=== PATIENT | male | born 1965 | race Caucasian/White ===

== ENCOUNTER 2022-10-15 06:53 | Outpatient (OUT) | payer BC, SELFPAY ==
--- NOTE | 2022-10-15 07:54 | US_ITS ---
[place] [id number] Patient Name: KARL GEIGER MRN: [id number] date: 1965 Sex: M Assigned Patient Location: CARD Current Patient Location: CARD Accession/Order Number: [id number] Exam Date: 10/15/2022 08:00 Report Date: 10/15/2022 16:39 At the request of: ANTIONE STOVER Procedure: US carotid duplex BI EXAMINATION: US carotid duplex BI HISTORY: PTOSIS OF RIGHT EYELID H02.401 COMPARISON: No relevant comparison available. TECHNIQUE: Duplex Doppler ultrasound analysis of carotid and vertebral arteries. . Bilateral carotid arterial duplex examination was performed using B-mode, color flow and spectral analysis. Carotid stenosis is reported according to validated velocity parameters, similar to NASCET criteria. FINDINGS: RIGHT CAROTID ARTERY Mild atherosclerotic plaque Subclavian: PSV: 138.3 cm/s cm/s EDV: 0.0 cm/s cm/s CCA: Prox: PSV: 76.8 cm/s cm/s EDV: 23.3 cm/s cm/s Mid: PSV: 99.0 cm/s cm/s EDV: 24.6 cm/s cm/s Distal: PSV: 79.0 cm/s cm/s EDV: 24.3 cm/s cm/s BULB: PSV: 59.1 cm/s cm/s EDV: 18.7 cm/s cm/s ICA: Prox: PSV: 47.9 cm/s cm/s EDV: 14.9 cm/s cm/s Mid: PSV: 55.6 cm/s cm/s EDV: 22.6 cm/s cm/s Distal: PSV: 56.7 cm/s cm/s EDV: 22.6 cm/s cm/s ECA: PSV: 97.4 cm/s cm/s EDV: 20.4 cm/s cm/s VERTEBRAL: PSV: 19.9 cm/s cm/s EDV: 7.8 cm/s cm/s, antegrade ICA/CCA ratio: PSV: 0.6 EDV: 0.8 LEFT CAROTID ARTERY Mild atherosclerotic plaque Subclavian: PSV: 135.8 cm/s cm/s EDV: 0.0 cm/s CCA: Prox: PSV: 116.1 cm/s cm/s EDV: 25.4 cm/s Mid: PSV: 98.4 cm/s cm/s EDV: 25.4 cm/s Distal: PSV: 76.7 cm/s cm/s EDV: 23.5 cm/s BULB: PSV: 37.4 cm/s cm/s EDV: 8.9 cm/s ICA: Prox: PSV: 79.0 cm/s cm/s EDV: 20.8 cm/s Mid: PSV: 72.5 cm/s cm/s EDV: 20.8 cm/s Distal: PSV: 70.9 cm/s cm/s EDV: 22.4 cm/s ECA: PSV: 78.9 cm/s cm/s EDV: 12.8 cm/s VERTEBRAL: PSV: 37.4 cm/s cm/s EDV: 13.0 cm/s , antegrade ICA/CCA ratio: PSV: 0.7 EDV: 0.8 Enlarged heterogeneous thyroid gland IMPRESSION: 0-49% flow stenosis bilateral internal carotid arteries Enlarged heterogeneous thyroid gland. Consider thyroid ultrasound follow up Spectral Doppler US Thresholds (Reference: Marcin EG, et al. Radiology 2000; 214:247-252) Stenosis (%) PSV (cm/sec) VICA/VCCA 0-49 <150 <2.5 50-69 150-225 2.5-4.0 >70 >225 >4.0 Electronically authenticated by: BERNARDO DANGELO Date: 10/15/2022 16:39
--- NOTE | 2022-10-15 07:55 | US_ITS ---
[place] [id number] Patient Name: KARL GEIGER MRN: [id number] date: 1965 Sex: M Assigned Patient Location: CARD Current Patient Location: CARD Accession/Order Number: [id number] Exam Date: 10/15/2022 08:00 Report Date: 10/15/2022 10:09 At the request of: ANTIONE STOVER Procedure: US venous doppler UE RT EXAMINATION: US venous doppler UE RT HISTORY: SUPERFICIAL VENOUS THROMBOSIS OF RT UPPER EXTREMITY I82.611 COMPARISON: No relevant comparison available. TECHNIQUE: Grayscale, color and Doppler FINDINGS: Region: Right arm Thrombus: None Flow: Normal Augmentation: Normal Compressibility: Normal IMPRESSION: No deep or superficial vein thrombus identified in the right arm *Exam performed in accordance with [facility] practice guidelines- Peripheral venous ultrasound, July 13, 2009. Electronically authenticated by: BERNARDO DANGELO Date: 10/15/2022 10:09
--- NOTE | 2022-10-15 08:08 | CA_ITS ---
Patient: KARL GEIGER Exam Date: 10/15/2022 : 1965 Gender:M Ordering : DR Zach Mims D.O. Admission #: [id number] Family : Order #: [id number] CLICK HERE TO VIEW EXAM ECHOCARDIOGRAM REPORT PROCEDURE: CA ECHO DOPPLER COMPLETE INDICATIONS: Ptosis of right eyelid, Right oculomotor nerve palsy COMPARISON: None. DESCRIPTION: COMPLETE ECHOCARDIOGRAM Real-time transthoracic echocardiography with 2D, M-mode, spectral and color flow Doppler performed. QUALITY: Technical quality was good. LEFT VENTRICLE: Normal chamber size. Borderline left ventricular hypertrophy. Global left ventricular systolic function is normal. LV EF: Estimated left ventricular ejection fraction is 65% DIASTOLIC: Normal diastolic function. ATRIAL SEPTUM: LEFT ATRIUM: Mild dilatation. RIGHT ATRIUM: Mild dilatation. RIGHT VENTRICLE: Normal chamber size. Normal right ventricular systolic function. TRICUSPID VALVE: Normal mobility and thickness. No stenosis with trivial regurgitation. No evidence of pulmonary hypertension. RVSP 29 mmHg MITRAL VALVE: Normal mobility and thickness. No evidence of mitral valve stenosis. There is no mitral annular calcification. Trivial mitral regurgitation. AORTIC VALVE: Normal trileaflet appearance. No visible sclerosis. Normal leaflet mobility. No evidence of aortic valve stenosis. Mild aortic regurgitation. AORTIC ROOT: Normal diameter and appearance. PULMONIC VALVE: Normal thickness and mobility. No stenosis. Trivial regurgitation. PERICARDIUM: No evidence of pericardial effusion. IVC: Collapses with inspirations. Normal size PLEURA: CONCLUSION: 1. Normal ventricular systolic function. LVEF is 65%. 2. Normal diastolic function. 3. Mild biatrial dilatation. 4. Mild aortic valve regurgitation. 5. Normal right-sided pressures. 6. No pericardial effusion. Adult Echocardiography Procedure Report Left Ventricle LVEDD (3.7 - 5.6 cm): 5.29 cm LVESD (2.2 - 4.0 cm): 3.35 cm LVIVS thickness (0.6 - 1.2 cm): 1.03 cm LVPW thickness (0.5 - 1.0 cm): 1.09 cm e': 0.07 m/s E - e': 11.90 LVOT Max Gradient: 2.78 mm[Hg] LVOT Area (cm2): 0.83 m/s Peak Velocity (LVOT): 0.83 m/s Mean Velocity (LVOT): 0.61 m/s LVOT Diameter 2.25 cm Left Ventricular Ejection Fraction: 67.61 % Left Atrium LA Volume Index (2D A2C): 58.18 ml/m2 Left Atrium Systolic Dimension: 3.50 cm Mitral Valve MV E to A Ratio: 1.12 Mitral Valve A-Wave Peak Velocity: 0.78 m/s Mitral Valve E-Wave Peak Velocity: 0.88 m/s Right Ventricle RV Internal Diastolic Dimension: 4.20 cm Aorta AO Root Diam: 3.45 cm Ascending Ao Diam: 3.51 cm Aortic Valve AoV Area (Peak Bob): 3.02 cm2, 3.02 cm2 AoV Area (VTI): 3.20 cm2, 3.20 cm2 Peak Velocity(Antegrade Flow): 1.09 m/s Peak Gradient(Antegrade Flow): 4.76 mm[Hg] Mean Velocity(Antegrade Flow): 0.82 m/s Mean Gradient(Antegrade Flow): 2.96 mm[Hg] Velocity Time Integral: 24.08 cm Tricuspid Valve Peak Velocity (Regurgitant Flow): 2.51 m/s, 2.55 m/s, 1.83 m/s Pulmonic Valve Mean Gradient: 2.38 mm[Hg] Mean Velocity: 0.72 m/s Peak Velocity: 1.05 m/s, 1.00 m/s Peak Gradient: 4.40 mm[Hg], 4.04 mm[Hg] Right Atrium Right Atrium Systolic Pressure: 80.74 ml, 80.74 ml Dictated by: Jewel Gerardo M.D. on 10/15/2022 at 18:05 Approved by: Jewel Gerardo M.D. on 10/15/2022 at 18:08
--- NOTE | 2022-10-15 09:35 | MR_ITS ---
[address] [address] Patient Name: KARL GEIGER MRN: [id number] date: 1965 Sex: M Assigned Patient Location: CARD Current Patient Location: Accession/Order Number: [id number] Exam Date: 10/15/2022 09:35 Report Date: 10/16/2022 08:49 At the request of: ANTIONE STOVER Procedure: MR head/brain wo/w con EXAM: MR head/brain wo/w con HISTORY: PTOSIS OF RIGHT EYELID H02.401 COMPARISON: None. TECHNIQUE: Axial sagittal T1, axial T2, axial FLAIR, axial GRE, axial DWI, axial, sagittal, coronal T1 rosales FINDINGS: There is no diffusion abnormality.. The brain demonstrates normal morphology and signal. There is no mass, mass effect, nor hydrocephalus. The vascular flow voids are patent. The internal auditory canals and mastoid air cells appear unremarkable. There are no areas of hemosiderin staining. Postcontrast, there is no abnormal enhancement. The dural sinuses are patent. The orbits appear symmetric. The interpeduncular region appears unremarkable. The sella appears normal. Disc bulges in the upper cervical spine. Mild ethmoid sinus mucosal disease IMPRESSION: No MRI evidence for acute ischemia. Unremarkable MR appearance of the brain. No abnormal enhancement. Mild ethmoid sinus mucosal disease Electronically authenticated by: ANDREW VICK Date: 10/16/2022 08:49
== END 2022-10-15 06:54 | disposition home or self-care (01) ==
LOC: CARD 06:54
PROVIDERS: PCP Internal Medicine; Visit Provider Internal Medicine
DX: I82.611 Acute embolism and thrombosis of superficial veins of right upper extremity (principal); H02.401 Unspecified ptosis of right eyelid; H49.01 Third [oculomotor] nerve palsy, right eye; J32.2 Chronic ethmoidal sinusitis; I65.23 Occlusion and stenosis of bilateral carotid arteries; I35.1 Nonrheumatic aortic (valve) insufficiency
CPT/HCPCS: 70553; 93306; 93880; 93971; A9575

== ENCOUNTER 2022-10-29 13:53 | Outpatient (OUT) | payer BC, SELFPAY ==
--- NOTE | 2022-10-29 13:56 | US_ITS ---
The [address] [address] Patient Name: KARL GEIGER MRN: [id number] date: 1965 Sex: M Assigned Patient Location: US Current Patient Location: US Accession/Order Number: [id number] Exam Date: 10/29/2022 14:00 Report Date: 10/29/2022 19:39 At the request of: ANTIONE STOVER Procedure: US thyroid EXAM: US thyroid HISTORY: Enlarged Thyroid E04.9 COMPARISON: None. TECHNIQUE: Multiple sonographic images of the thyroid gland were obtained, supplemented with Doppler. FINDINGS: The right lobe measures 8.3 x 5.0 x 5.9 cm. Heterogeneous echoes are noted throughout. In the mid aspect there is a prominent nodule measuring 5.9 x 5.8 x 4.7 cm. This is solid and isoechoic. The left lobe measures 8.1 x 3.4 x 4.4 cm. Heterogeneous echoes are noted throughout. In the mid aspect there is a solid isoechoic nodule measuring 3.5 x 3.5 x 3.1 cm. In the superior aspect there is a solid isoechoic nodule measuring 1.6 x 2.0 x 2.0 cm. The isthmus measures 5 mm in thickness. There is no evidence of a focal mass or abnormal fluid collection surrounding the gland. US/US thyroid IMPRESSION: The thyroid gland is significantly enlarged diffusely. There are 3 largest nodules are described above, and each of these appears to be a TI RADS 3. Based on the size, the largest nodule on the right and the larger nodule on the left should be biopsied. Excisional biopsy of the very large nodule on the right may be prudent. Comparison with a previous study may be helpful. A follow-up study in 12 months is also recommended. Electronically authenticated by: ANA BARRIOS Date: 10/29/2022 19:39
== END 2022-10-29 13:54 | disposition home or self-care (01) ==
LOC: US 13:53
PROVIDERS: PCP Internal Medicine; Visit Provider Internal Medicine
DX: E04.9 Nontoxic goiter, unspecified (principal)
CPT/HCPCS: 76536

== ENCOUNTER 2022-11-02 16:23 | Outpatient (OUT) | payer BC, SELFPAY ==
[2022-11-02 18:09] LABS: Free T4 0.94 ng/dL (0.76-1.46)
[2022-11-04 05:07] LABS: Triiodothyronine (T3) 136 ng/dL (71-180)
== END 2022-11-02 16:24 | disposition home or self-care (01) ==
LOC: LAB 16:24
PROVIDERS: PCP Internal Medicine; Visit Provider Internal Medicine
DX: E04.1 Nontoxic single thyroid nodule (principal)
CPT/HCPCS: 36415; 84439; 84443; 84480

== ENCOUNTER 2023-03-29 11:40 | Outpatient (OUT) | payer BC, SELFPAY ==
[2023-03-29 12:17] LABS: Estimated Average Glucose 126 mg/dL
[2023-03-29 13:03] LABS: Microalbumin Urine Random <1.3 mg/dL (<=30.0)
== END 2023-03-29 11:41 | disposition home or self-care (01) ==
LOC: LAB 11:43
PROVIDERS: PCP Internal Medicine; Visit Provider Internal Medicine
DX: Z00.00 Encounter for general adult medical examination without abnormal findings (principal)
CPT/HCPCS: 36415; 82043; 83036

== ENCOUNTER 2023-07-14 16:37 | Outpatient (OUT) | payer BC, OTHER, SELFPAY ==
--- NOTE | 2023-07-14 16:49 | XR_ITS ---
The [place] [id number] Patient Name: KARL GEIGER MRN: [id number] date: 1965 Sex: M Assigned Patient Location: LAB Current Patient Location: Accession/Order Number: [id number] Exam Date: 07/14/2023 16:54 Report Date: 07/15/2023 07:30 At the request of: ANTIONE STOVER Procedure: XR lumbar spine 2-3V EXAMINATION: XR lumbar spine 2-3V HISTORY: hip pain, back pain M25.559, M54.9 COMPARISON: No relevant comparison available. FINDINGS: BONES: Normal alignment of the lumbar vertebral bodies with no acute fracture or spondylolisthesis. Bulky enthesopathic spurring. Moderate to severe facet osteoarthropathy DISC SPACES: Disc collapse L5-S1 PARASPINOUS: Negative. No paraspinous abnormality is seen. OTHER: Negative. XR/XR lumbar spine 2-3V IMPRESSION: Moderate to severe diffuse degenerative changes most significant at L5-S1 Electronically authenticated by: BERNARDO DANGELO Date: 07/15/2023 07:30
--- OUTSIDE RECORDS SUMMARY | 2023-07-14 16:51 | XMS_ITS | CCD ---
Author Organization [facility] Care Team Providers Care Teacher Asst Name Role Phone ZACH STOVER Primary Care Physician Ck, Zach Unavailable CK, DR SERRANO Consulting Unavailable CK, DR SERRANO Primary Care Unavailable BALL, DR SERRANO Attending Unavailable BALL, DR SERRANO Admitting Unavailable ANTOLIN, DR BERNARDO Brown Consulting Unavailable BALL, DR SERRANO Attending Unavailable BALL, DR SERRANO Consulting Unavailable CK, DR SERRANO Admitting Unavailable CK, DR SERRANO Primary Care Unavailable JAMEY FRAUSTO Consulting Unavaila ble CK, DR SERRANO Attending Unavailable BALL, DR SERRANO Consulting Unavailable BALL, DR SERRANO Admitting Unavailable BALL, DR SERRANO Primary Care Unavailable ZIJERMAINE, DR DAMASO Hooker Consulting Unavailable BALL, DR SERRANO Attending Unavailable BALL, DR SERRANO Consulting Unavailable BALL, DR SERRANO Admitting Unavailable BALL, DR SERRANO Primary Care Unavailable BALL, DR SERRANO Consulting Unavailable BALL, DR SERRANO Attending Unavailable BALL, DR SERRANO Admitting Unavailable BALL, DR SERRANO Primary Care Unavailable MAYRA STEIN Consulting Unavailable CK, DR SERRANO Primary Care Unavailable YURIDIA ., DR VELMA Kang Admitting Unavailable SHI ., DR VELMA Kang Consulting Unavailable SHI ., DR VELMA Kang Attending Unavailable HAY ., DR SHEEHAN Consulting Unavailable FAUSTO, LENKA Consulting Unavailable RASHEEDA, PAKO Consulting Unavailable BALL, DR SERRANO Primary Care Unavailable BALL, DR SERRANO Attending Unavailable BALL, DR SERRANO Admitting Unavailable BALL, DR SERRANO Primary Care Unavailable YURIDIA ., DR VELMA Kang Admitting Unavailable SHI ., DR VELMA Kang Consulting Unavailable SHI ., DR VELMA Kang Attending Unavailable Ck, DO Serrano Primary Care Provider DO Zach Martínez Attending Provider [phone] DO Zach Stover Primary Care Provider DO Zach Martínez Attending Provider Ball DO, Zach Primary Care Provider MERYL HOWE Referring Unavailable BALL, ZACH Primary Care Unavailable BALL, ZACH Primary Care Unavailable SKIBICAIN ESQUIVEL Attending Unavailable Ball, DO Zach Primary Care Provider Murcek, DO Zach Attending Provider [phone] Ball, DO Zach Attending Provider [phone] Murcek, DO Zach Other Provider Ball DO, Zach E Primary Care Provider BALL, ZACH E Primary Care Unavailable ABHYANKAR, RENE Attending Unavailable BALL, ZACH E Primary Care Unavailable ABHYANKAR, RENE Attending Unavailable BALL, ZACH E Referring Unavailable ABHYANKAR, RENE Referring Unavailable BALL, ZACH E Primary Care Unavailable DESHPANDE, LINA Attending Unavailable DESHPANDE, LINA Admitting Unavailable BALL, ZACH E Primary Care Unavailable MURCEK, ZACH W Attending Unavailable MURCEK, ZACH W Attending Unavailable Ball, DO Zach Primary Care Provider [phone] Ball, DO Zach Attending Provider [phone] Murcek, DO Zach Other Provider [phone] Murcek, DO Zach Attending Provider MD oBnifacio Mitchell Attending Provider MD Bonifacio Mitchell Admit Provider MD Bonifacio Mitchell Attending Provider Ball, Zach Primary Care Unavailable Murcek, Zach Admitting Unavailable Murcek, Zach Attending Unavailable Ball, Zach Primary Care Unavailable Bonifacio Mitchell Admitting Unavailable Bonifacio Mitchell Attending Unavailable Murcek, Zach Admitting Unavailable Ball, Zach Primary Care Unavailable Murcek, Zach Attending Unavailable Ball, Zach Primary Care Unavailable Murcek, Zach Admitting Unavailable Murcek, Zach Attending Unavailable Murcek, Zach Admitting Unavailable Ball, Zach Primary Care Unavailable Murcek, Zach Attending Unavailable Murcek, Zach Admitting Unavailable Ball, Zach Primary Care Unavailable Murcek, Zach Attending Unavailable Ball, Zach Primary Care Unavailable Ball, Zach Attending Unavailable Ball, Zach Admitting Unavailable Murcek, Zach Consulting Unavailable Bonifacio MITCHELL Attending Unavailable Bonifacio MITCHELL Attending Unavailable Bonifacio MITCHELL Admitting Unavailable Bonifacio MITCHELL Attending Unavailable Bonifacio MITCHELL Attending Unavailable Bonifacio MITCHELL Attending Unavailable Bonifacio MITCHELL Referring Unavailable Bonifacio MITCHELL Attending Unavailable Allergies Allergy Classification Reported Allergen(s) Allergy Type Date of Onset Reaction(s) Facility (1 source) patient allergy list reviewed by nurse or physicia Propensity to adverse reactions Comment:Done [employer] Other Medications Current Medications Medication Drug Class(es) Dates Sig (Normalized) Sig (Original) 24 hr alfuzosin hydrochloride 10 mg extended release oral tablet (20 sources) alpha-Adrenergic Danny Start: 03-29-2023 alfuzosin SR (UROXATRAL) 10 mg 24 hr tablet Start: 07-27-2022 take 10 mg by mouth once daily Alfuzosin Active 10 MG PO Daily December 10, 2022 12:00am amLODIPine 5 mg oral tablet (20 sources) Dihydropyridine Calcium Channel Danny Start: 10-08-2022 take 5 mg by mouth once daily in the morning Amlodipine Active 5 MG PO Every morning December 10, 2022 12:00am apixaban 5 mg oral tablet (18 sources) Factor Xa Inhibitor Start: 07-08-2022 take 1 tablet by mouth every twelve hours Eliquis 5 MG 1 tablet Orally Twice a day Jun, Active atenolol 100 mg oral tablet (16 sources) beta-Adrenergic Danny Start: 06-06-2019 take 1 tablet by mouth once daily atenolol 100 mg Tab 100 mg = 1 tab(s), Oral, Daily Start Date: 06/06/19 Status: Ordered 24 hr buPROPion hydrochloride 300 mg extended release oral tablet (20 sources) Aminoketone Start: 07-08-2023 buPROPion 300 mg/24 hours ER Tab 300 mg = 1 tab(s), Oral Start Date: 07/08/23 Status: Ordered Start: 02-22-2023 buPROPion XL ( WELLBUTRIN XL) 300 mg 24 hr tablet Start: 12-10-2022 take 300 mg by mouth once frandy y Bupropion Hcl Active 300 MG PO Daily December 10, 2022 12:00am carvedilol 6.25 mg oral tablet (20 sources) alpha-Adrenergic Danny, beta-Adrenergic Danny Start: 10-08-2022 take 6.25 mg by mouth twice daily Carvedilol Active 6.25 MG PO Twice daily December 10, 2022 12:00am celecoxib 200 mg oral capsule (20 sources) Nonsteroidal Anti-inflammatory Drug Start: 06-06-2019 take 200 mg by mouth once daily in the morning Celecoxib Active 200 MG PO Every morning December 10, 2022 12:00am ciprofloxacin 500 mg oral tablet (6 sources) Quinolone Antimicrobial Start: 06-22-2023 take 500 mg by mouth twice daily Ciprofloxacin Hcl Active 500 MG PO Twice daily July 09, 2023 12:00am Start: 06-18-2022 Cipro 500 mg T ab See Instructions, Take 1 tab the day prior to procedure and 1 tab day of procedure afterwards, # 2 tab(s), Refills(s) 0, Pharmacy: [facility] [id number], 181, cm, 07/29/21 7:44:00 EDT, Height/Length Dosing, 85, kg, 07/29/21 7:44:00 EDT, Weight Dosing Start Date: 06/18/22 Status: Ordered Start: 06-26-2021 Cipro 500 mg T ab See Instructions, Take 1 tab day prior to procedure and 1 tab day of procdure - afterwards, # 2 tab(s), Refills(s) 0, Pharmacy: [facility] [id number], 181, cm, 06/27/20 12:55:00 EST, Height/Length Dosing, 131.5, kg, 11/28/19 13:22:00 EDT, Weight Dosing Start Date: 06/26/21 Status: Ordered cyclobenzaprine hydrochloride 10 mg oral tablet (20 sources) Muscle Relaxant Start: 11-22-2019 take 10 mg by mouth once daily Cyclobenzaprine Active 10 MG PO Daily December 10, 2022 12:00am hydroCHLOROthiazide 25 mg oral tablet (20 sources) Thiazide Diuretic Start: 07-08-2023 take 25 mg by mouth once daily Hydrochlorothiazide Active 25 MG PO Daily July 09, 2023 12:00am Start: 12-16-2022 take 1 tablet by arvin th every twenty-four hours hydroCHLOROthiazide 25 MG 1 tablet in the morning Orally Once a day for 90 days Nov, Active Comment on above: Take 25 mg by mouth once daily. hydroCHLOROthiazide / olmesartan (2 sources) Thiazide Diuretic, Angiotensin 2 Receptor Danny Start: 11-22-19 take 1 tablet by mouth once daily hydrochlorothia zide-olmesartan 25 mg-40 mg oral tablet 1 tab(s), Oral, Daily, Refill(s) 0 Start Date: 11/22/19 Status: Ordered Start: 11-22-2019 take 1 tablet by arvin th once daily hydrochlorothiazide-olmesartan 25 mg-40 mg oral tablet 1 tab(s), Oral, Daily, Refill(s) 0 Start Date: 11/22/19 Status: Ordered hydroCHLOROthiazide 25 mg / valsartan 320 mg oral tablet (2 sources) Thiazide Diuretic, Angiotensin 2 Receptor Danny take 1 tablet by mouth once daily valsartan-hydrochlorothiazide (DIOVAN-HCT) 320-25 MG per tablet Take 1 tablet by mouth daily 0 Active ibuprofen 600 mg oral tablet (2 sources) Nonsteroidal Anti-inflammator y Drug take 1 tablet by mouth every six hours as needed for pain ibuprofen (ADVIL;MOTRIN) 600 MG tablet Take 600 mg by mouth every 6 hours as needed for Pain 0 Active levothyroxine sodium 0.2 mg oral tablet (19 sources) l-Thyroxine Star t: 06-18 take 225 ug by mouth once daily Levothyroxine Active 225 MCG PO Daily July 09, 2023 12:00am Start: 07-08-2023 take 1 tablet by arvin th once daily levothyroxine 25 mcg (0.025 mg) Tab 25 mcg = 1 tab(s), Oral, Daily Start Date: 07/08/23 Status: Ordered Start: 04-25-2023 levothyroxine (SYNTHROID) 175 mcg tablet take 1 tablet by arvin th once daily in the morning Levothyroxine Sodium 150 MCG 1 tablet in the morning on an empty stomach Orally Once a day Active take 1 tablet by arvin th once daily in the morning Levothyroxine Sodium 100 MCG 1 tablet in the morning on an empty stomach Orally Once a day Active losartan potassium 100 mg oral tablet (19 sources) Angiotensin 2 Receptor Danny Start: 06-29-2023 End: 06-29-2023 take 100 mg by mouth once daily Losartan Active 100 MG PO Daily 90 90 June 29, 2023 1:14pm Start: 03-29-2023 losartan (COZA AR) 100 mg tablet metroNIDAZOLE 500 mg oral tablet (20 sources) Nitroimidazole Antimicrobial Start: 06-16-2022 take 1 tablet by mouth every eight hours metroNIDAZOLE 500 MG 1 tablet Orally Three times a day for 7 days May, Active oxybutynin chloride 5 mg oral tablet (2 sources) Cholinergic Muscarinic Antagonist Start: 07-09-2023 take 5 mg by mouth twice daily Oxybutynin Chloride Active 5 MG PO Twice daily 05 02July 09, 2023 12:00am pravastatin sodium 40 mg oral tablet (20 sources) HMG-CoA Reductase Inhibitor Start: 11-28-2019 take 40 mg by mouth once daily in the evening Pravastatin Active 40 MG PO Every evening December 10, 2022 12:00am tamsulosin hydrochloride 0.4 mg oral capsule (1 source) alpha-Adrenergic Danny Start: 06-22-2022 Flomax 0.4 mg Cap 0.4 mg = 1 cap(s), Oral, Daily, 30 minutes after the same meal, # 30 tab(s), Refills(s) 11, Pharmacy: [facility] [id number], 181, cm, 07/29/21 7:44:00 EDT, Height/Length Dosing, 85, kg, 07/29/21 7:44:00 EDT, Weight Dosing Start Date: 06/22/22 Status: Ordered Completed/Discontinued Medications Medication Drug Class(es) Dates Sig (Normalized) Sig (Original) acetaminophen 325 mg oral tablet (1 source) Start: 04-28-2023 End: 04-28-2023 acetaminophen (TYLENOL) tablet 650 mg ALPRAZolam 0.25 mg oral tablet (20 sources) Benzodiazepine Start: 03-29-2023 ALPRAZolam (XANAX) 0.25 mg tablet Start: 11-22-2019 take 0.25 mg by mout h every six hours Alprazolam Active 0.25 MG PO Q6H December 10, 2022 12:00am amoxicillin 875 mg / clavulanate 125 mg oral tablet (20 sources) Penicillin-class Antibacterial Start: 06-05-2022 take 1 tablet by mouth every twelve hours Amoxicillin-Pot Clavulanate 875-125 MG 1 tablet Orally every 12 hrs for 7 17 May, 2022 Not-Taking/PRN cephalexin 500 mg oral capsule (2 sources) Cephalosporin Antibacterial Start: 07-09-2023 End: 07-10-2023 take 500 mg by mouth twice daily Cephalexin Discontinued 500 MG PO Twice daily 10 5 July 09, 2023 12:00am July 10, 2023 1:49am doxycycline hyclate 100 mg oral capsule (2 sources) Tetracycline-class Drug Start: 06-10-2023 End: 07-09-2023 take 100 mg by mouth twice daily Doxycycline Hyclate Discontinued 100 MG PO Twice daily 14 June 10, 2023 1:00am July 09, 2023 3:49pm levoFLOXacin 500 mg oral tablet (20 sources) Quinolone Antimicrobial Start: 06-16-2022 take 1 tablet by mouth every twenty-four hours levoFLOXacin 500 MG 1 tablet Orally Once a day for 7 days May, Not-Taking/PRN olmesartan medoxomil 20 mg oral tablet (12 sources) Angiotensin 2 Receptor Danny Start: 12-11-2022 End: 07-09-2023 take 20 mg by mouth once daily Olmesartan Discontinued 20 MG PO Daily December 18, 2022 12:00am July 09, 2023 3:49pm sildenafil 100 mg oral tablet (20 sources) Phosphodiesterase 5 Inhibitor Start: 12-10-2022 End: 07-09-2023 take 100 mg by mouth once daily Sildenafil Discontinued 100 MG PO Daily December 10, 2022 12:00am July 09, 2023 3:49pm Start: 02-05-2021 sildenafil 50 mg Tab See Instructions, 1 hour before sexual activity, # 30 caplet(s), Refills(s) 3, [facility]: [facility], 181, cm, 06/27/20 12:55:00 EST, Height/Length Dosing, 131.5, kg, 11/28/19 13:22:00 EDT, Weight Dosing Start Date: 02/05/21 Status: Ordered zolpidem tartrate 10 mg oral tablet (20 sources) gamma-Aminobutyric Acid-ergic Agonist Start: 06-06-2019 End: 06-21-2023 take 10 mg by mouth once daily at bedtime Zolpidem Discontinued 10 MG PO Daily at bedtime June 21, 2023 1:00am June 21, 2023 2:02pm Problems Active Problems Problem Classification Problem Date Documented Da te Episodic/Chronic Abdominal hernia (20 sources) Umbilical hernia; Translations: [Umbilical hernia without obstruction or gangrene] Resolved: 0 Episodic Acute bronchitis (2 sources) Acute bronchitis; Translations: [Acute bronchitis due to other specified organisms] Onset: 4 Episodic Anxiety disorders (20 sources) Generalized anxiety disorder; Translations: [Generalized anxiety disorder] Onset: 7 Resolved: 0 11-22-2019 Chronic Cancer of bladder (1 source) Malignant tumor of urinary bladder; Translations: [Malignant neoplasm of bladder, unspecified] Onset: 6 Chronic Cancer of bladder (3 sources) History of malignant neoplasm of bladder; Translations: [Personal history of malignant neoplasm of bladder] Onset: 2 Episodic Cancer; other and unspecified primary (4 sources) H/O: malignant neoplasm 05-16-2019 Episodic Chronic kidney disease (20 sources) Chronic kidney disease stage 3A ; Translations: [Stage 3a chronic kidney disease] Chronic Complications of surgical procedures or medical care (11 sources) Postoperative hypothyroidism; Translations: [Postprocedural hypothyroidism] Onset: 4 Chronic Diabetes mellitus without complication (20 sources) Impaired fasting glycemia; Translations: [Impaired fasting glucose] Onset: 7 11-22-2019 Episodic Disorders of lipid metabolism (20 sources) Hyperlipidemia; Translations: [Hypercholesterolemia] Onset: 7 11-22-2019 Chronic Diverticulosis and diverticulitis (20 sources) Diverticular disease; Translations: [Diverticular disease of colon] Onset: 4 05-16-2019 Chronic Essential hypertension (20 sources) Hypertensive disorder; Translations: [Essential hypertension] Onset: 4 05-16-2019 Chronic Hyperplasia of prostate (20 sources) Benign prostatic hypertrophy with outflow obstruction; Translations: [Benign prostatic hyperplasia with lower urinary tract symptoms] Onset: 9 Resolved: 0 Chronic Hypertension with complications and secondary hypertension (20 sources) Chronic kidney disease due to hypertension; Translations: [Hypertensive chronic kidney disease with stage 1 through stage 4 chronic kidney disease, or unspecified chronic kidney disease] Onset: 1 Chronic Inflammatory conditions of male genital organs (5 sources) Epididymitis; Translations: [Acute prostatitis] Onset: 8 05-16-2019 Episodic Malignant neoplasm without specification of site (2 sources) Malignant (primary) neoplasm, unspecified; Translations: [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)] Onset: 4 Chronic Miscellaneous mental health disorders (20 sources) Primary insomnia; Translations: [Primary insomnia] 07-09-2023 Chronic Mood disorders (20 sources) Depressive disorder; Translations: [Mild recurrent major depression] 05-16-2019 Chronic Osteoarthritis (20 sources) Localized, primary osteoarthritis of the pelvic region and thigh; Translations: [Unilateral primary osteoarthritis, right hip] Resolved: 2 Chronic Other aftercare (20 sources) H/O: high risk medication; Translations: [Other terminal block assembler (current) drug therapy] Episodic Other aftercare (2 sources) Other long-term (current) drug therapy; Translations: [OTH COMPOUNDER FLAVORINGS CURRENT DRUG THERAPY] Onset: 3 Episodic Other aftercare (1 source) Long-term current use of drug therapy; Translations: [Other terminal block assembler (current) drug therapy] Episodic Other bone disease and musculoskeletal deformities (2 sources) Disorder of bone, unspecified; Translations: [Disorder of bone, unspecified] Onset: 4 Episodic Other circulatory disease (20 sources) Past history of procedure; Translations: [Presence of other vascular implants and grafts] Chronic Other circulatory disease (2 sources) Presence of other vascular implants and grafts Chronic Other connective tissue disease (5 sources) Other specified soft tissue disorders; Translations: [OTHER SPEC SOFT TISSUE DISORDERS] Onset: 3 Episodic Other connective tissue disease (1 source) H/O: musculoskeletal disease; Translations: [Personal history of other diseases of the musculoskeletal system and connective tissue] Episodic Other diseases of kidney and ureters (2 sources) Urinary tract obstruction; Translations: [Other obstructive and reflux uropathy] Onset: 3 Episodic Other eye disorders (20 sources) Ptosis of right upper eyelid; Translations: [Unspecified ptosis of right eyelid] Episodic Other eye disorders (6 sources) Unspecified ptosis of right eyelid; Translations: [UNSPECIFIED PTOSIS OF RIGHT EYELID] Onset: 3 Episodic Other eye disorders (20 sources) Third [oculomotor] nerve palsy, right eye; Translations: [THIRD OCULOMOTOR NERVE PALSY RT EYE] Onset: 3 Episodic Other gastrointestinal disorders (4 sources) Hyperplastic polyp of intestine 12-27-2019 Episodic Other gastrointestinal disorders (4 sources) Umbilical swelling 11-29-2019 Episodic Other gastrointestinal disorders (2 sources) Prostate mass 07-08-2023 Episodic Other male genital disorders (1 source) Male erectile dysfunction, unspecified; Translations: [Erectile dysfunction] Onset: 2 Chronic Other male genital disorders (5 sources) Induratio penis plastica; Translations: [Induration penis plastica] Onset: 2 Chronic Other male genital disorders (4 sources) Impotence 06-06-2019 Chronic Other male genital disorders (20 sources) Impotence of organic origin; Translations: [Erectile dysfunction due to arterial insufficiency] Onset: 4 Chronic Other male genital disorders (2 sources) Erectile dysfunction due to arterial insufficiency; Translations: [Erectile dysfunction due to arterial insufficiency] Chronic Other male genital disorders (4 sources) History of testicular disorder 05-16-2019 Episodic Other male genital disorders (1 source) Disorder of prostate; Translations: [Other specified disorders of prostate] Onset: 4 Episodic Other non-traumatic joint disorders (20 sources) Arthralgia of the pelvic region and thigh; Translations: [Pain in left hip] Episodic Other non-traumatic joint disorders (1 source) Pain in left hip; Translations: [Left hip pain] Episodic Other nutritional; endocrine; and metabolic disorders (1 source) Obese class II; Translations: [Body mass index 39.0-39.9, adult] Onset: 6 Chronic Other nutritional; endocrine; and metabolic disorders (1 source) Obesity; Translations: [Obesity, unspecified] Chronic Other nutritional; endocrine; and metabolic disorders (2 sources) Body mass index 40+ - severely obese; Translations: [Body Mass Index 40.0-44.9, adult] Onset: 6 Chronic Other nutritional; endocrine; and metabolic disorders (8 sources) Severe obesity; Translations: [Morbid (severe) obesity due to excess calories] Chronic Other nutritional; endocrine; and metabolic disorders (8 sources) Body mass index 30+ - obesity; Translations: [Body mass index (BMI) 39.0-39.9, adult] Chronic Other nutritional; endocrine; and metabolic disorders (1 source) Morbid (severe) obesity due to excess calories Chronic Other nutritional; endocrine; and metabolic disorders (1 source) Body mass index (BMI) 39.0-39.9, adult Chronic Other nutritional; endocrine; and metabolic disorders (7 sources) Hypercalcemia; Translations: [Hypercalcemia] Onset: 4 05-14-2023 Chronic Other nutritional; endocrine; and metabolic disorders (1 source) Hypercalcemia; Translations: [Hypercalcemia] Onset: 4 Chronic Other screening for suspected conditions (not mental disorders or infectious disease) (5 sources) Encounter for screening for malignant neoplasm of prostate; Translations: [Encounter for screening for malignant neoplasm of colon] Onset: 2 Episodic Peritonitis and intestinal abscess (1 source) Generalized (acute) peritonitis; Translations: [GENERALIZED ACUTE PERITONITIS] Onset: 3 Episodic Phlebitis; thrombophlebitis and thromboembolism (5 sources) Acute embolism and thrombosis of superficial veins of right upper extremity; Translations: [Phlebitis and thrombophlebitis of other sites] Onset: 3 Episodic Residual codes; unclassified (20 sources) Obstructive sleep apnea syndrome; Translations: [Obstructive sleep apnea (adult) (pediatric)] Onset: 6 11-22-2019 Chronic Residual codes; unclassified (5 sources) Obstructive sleep apnea (adult) (pediatric); Translations: [Obstructive sleep apnea] Chronic Residual codes; unclassified (4 sources) Insomnia 11-22-2019 Episodic Residual codes; unclassified (1 source) Preventive procedure; Translations: [Encounter for other specified prophylactic measures] Episodic Secondary malignancies (13 sources) Secondary malignant neoplasm of bone; Translations: [Secondary malignant neoplasm of bone] Onset: 4 05-14-2023 Chronic Secondary malignancies (4 sources) Secondary malignant neoplasm of bone; Translations: [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)] Onset: 4 Chronic Spondylosis; intervertebral disc disorders; other back problems (20 sources) Lumbar spondylosis; Translations: [Spondylosis without myelopathy or radiculopathy, lumbar region] 11-22-2019 Chronic Sprains and strains (6 sources) Unspecified sprain of right shoulder joint, initial encounter; Translations: [Sprains and strains of unspecified site of shoulder and upper arm] Onset: 4 04-28-2023 Episodic Thyroid disorders (20 sources) Goiter; Translations: [Nontoxic goiter, unspecified] Onset: 3 Chronic Unclassified (4 sources) Patient encounter status 11-29-2019 Unclassified (1 source) CONTACT W/AND (SUSP) EXPOS COVID-19; Translations: [CONTACT W/AND (SUSP) EXPOS COVID-19] Onset: 3 Unclassified (1 source) Encounter for preprocedural laboratory examination; Translations: [Encounter for preprocedural laboratory examination] Onset: 3 Past or Other Problems Problem Classification Problem Date Documented Da te Episodic/Chronic Acute and unspecified renal failure (5 sources) Acute kidney failure, unspecified; Translations: [Acute renal failure syndrome] Onset: 08-29-2021 Resolved: 03-22-2022 Episodic Bacterial infection; unspecified site (1 source) Bacterial infectious disease; Translations: [Bacterial infection, unspecified, in conditions classified elsewhere and of unspecified site] Onset: 2017 Episodic Chronic kidney disease (4 sources) Chronic kidney disease Genitourinary symptoms and ill-defined conditions (1 source) Dysuria; Translations: [Dysuria] Onset: 09-23-2015 Episodic Immunizations and screening for infectious disease (1 source) Vaccination given; Translations: [Encounter for immunization] Onset: 12-04-2016 Episodic Other non-traumatic joint disorders (1 source) Arthralgia of the lower leg; Translations: [Pain in left knee] Onset: 01-01-2014 Episodic Other nutritional; endocrine; and metabolic disorders (1 source) Morbid obesity; Translations: [Morbid (severe) obesity due to excess calories] Resolved: 03-24-2022 Chronic Other upper respiratory infections (1 source) Acute sinusitis; Translations: [Acute sinusitis, unspecified] Onset: 04-06-2014 Episodic Pneumonia (except that caused by tuberculosis or sexually transmitted disease) (2 sources) Pneumonia; Translations: [Pneumonia, unspecified organism] Resolved: 03-22-2022 Episodic Spondylosis; intervertebral disc disorders; other back problems (1 source) Low back pain; Translations: [Lumbago] Onset: 06-13-2014 Episodic Results Test Name Value Interpretation Reference Range Facility Consultation Noteon 07-12-19 Consultation Note [id number]#[id number] Normal [facility] Operative Reporton Operative Report [id number]#1.00TIFF Normal [facility] Basic Metabolic Panelon 06-18 Anion gap [Moles/Vol] 13.8 mmol/L Normal 6.0-15.0 [facility] Comment on above: Performed By: #### T SH3, T4T, T3T #### [facility] [address] Calcium [Mass/Vol] 9.2 mg/dL Normal 8.6-10.3 [facility] Comment on above: Performed By: #### T SH3, T4T, T3T #### [facility] [address] Chloride [Moles/Vol] 97 mmol/L Low 98-107 [facility] Comment on above: Performed By: #### T SH3, T4T, T3T #### [facility] [address] CO2 [Moles/Vol] 28.3 mmol/L Normal 21.0-31.0 [facility] Comment on above: Performed By: #### T SH3, T4T, T3T #### [facility] [address] Creatinine [Mass/Vol] 1.03 mg/dL Normal 0.70-1.30 [facility] Comment on above: Performed By: #### T SH3, T4T, T3T #### [facility] [address] [place] [address] [place] Creatinine Clr Calc Pharmacy 102.14 [facility] Comment on above: Result Comment: PERF ORMED BY: [place] [address] PATHOLOGIST ANALOG IC DESIGN ENGINEER JIANLAN SUN M.D. Performed By: #### T SH3, T4T, T3T #### [facility] [address] [place] [address] [place] GFR/1.73 sq M.predicted MDRD (S/P/Bld) [Vol rate/Area] mL/min/{1.73_m2} Normal [facility] Comment on above: Performed By: #### T SH3, T4T, T3T #### [facility] [address] Glucose [Mass/Vol] 96 mg/dL Normal 70-100 [facility] Comment on above: Result Comment: [facility] Glucose Reference Range is dependent on time and content of last meal. Glucose of more than 200 mg/dL in a nonstressed, ambulatory subject supports the diagnosis of Diabetes Mellitus. ADA recommended reference range Performed By: #### T SH3, T4T, T3T #### [facility] [address] [place] [address] [place] Potassium [Moles/Vol] 3.1 mmol/L Low 3.5-5.1 [facility] Comment on above: Performed By: #### T SH3, T4T, T3T #### [facility] [address] [place] [address] [place] Sodium [Moles/Vol] 136 mmol/L Normal 136-145 [facility] Comment on above: Performed By: #### T SH3, T4T, T3T #### [facility] [address] [place] [address] [place] Urea nitrogen [Mass/Vol] 16 mg/dL Normal 7-25 [facility] Comment on above: Performed By: #### T SH3, T4T, T3T #### [facility] [address] [place] [id number] [place] Calcium [Mass/volume] in Ser um or PlasmaOrdered By: Valerio Goldberg on 07-09-2023 Calcium [Mass/Vol] 9.2 mg/dL 8.6-10.3 [facility] Carbon dioxide, total [Moles /volume] in Serum or PlasmaOrdered By: Valerio Goldberg on 07-09-2023 CO2 [Moles/Vol] 28.3 mmol/L 21.0-31.0 [facility] Chloride [Moles/volume] in S jane or PlasmaOrdered By: Valerio Goldberg on 07-09-2023 Chloride [Moles/Vol] 97 mmol/L 98-107 [facility] Consent for Procedure/Surger yon 07-09-2023 Consent for Procedure/Surgery [id number]#[id number] Normal [facility] Creatinine [Mass/volume] in Serum or PlasmaOrdered By: Valerio Goldberg on 07-09-2023 Creatinine [Mass/Vol] 1.03 mg/dL 0.70-1.30 [facility] ECG 12 lead ECGon 07-09-2023 ECG 12 lead ECG [facility] [place] [address] Electrocardiograph Report Signed Patient: Jm Pat MR#: [id number] : 1965 Acct:[id number] Age/Sex: 58 / M ADM Date: 07/09/23 Loc: Room: [address] [place] [address] Type: [facility] Attending Dr: Bonifacio Mitchell MD Ordering Provider: Valerio Goldberg MD Date of Service: 07/09/23 ECG/ECG 12 lead ECG: preop Copies to: Test Reason : Blood Pressure : / mmHG Vent. Rate : 070 BPM Atrial Rate : 070 BPM P-R Int : 176 ms QRS Dur : 102 ms QT Int : 406 ms P-R-T Axes : 050 017 050 degrees QTc Int : 438 ms Normal sinus rhythm Cannot rule out Anterior infarct (cited on or before 10-DEC-2022) Abnormal ECG When compared with ECG of 10-DEC-2022 14:09, No significant change was found Confirmed by Jewel Cole ([id number]) on 07/10/2023 8:06:50 AM Referred By: Electronically Signed By:Jewel Cole Transcribed By: MUS Signed By Jewel Cole MD 07/10/23 0806 Normal [facility] Glucose [Mass/volume] in Ser um or PlasmaOrdered By: Valerio Goldberg on 07-09-2023 Glucose [Mass/Vol] 96 mg/dL 70-100 [facility] Comment on above: ADA recommended refe rence rangeRandom Glucose Reference Range is dependent on time and content of last meal. Glucose of more than 200 mg/dL in a nonstressed, ambulatory subject supports the diagnosis of Diabetes Mellitus. No Panel InformationOrdered By: Valerio Goldberg on 07-09-2023 Estimated GFR (CKD-EPI) > 60.0 mL/Min [facility] Creatinine Clearance (Chem 102.14 [facility] Potassium [Moles/volume] in Serum or PlasmaOrdered By: Valerio Goldberg on 07-09-2023 Potassium [Moles/Vol] 3.1 mmol/L 3.5-5.1 [facility] Serum or plasma anion gap de terminationOrdered By: Valerio Goldberg on 07-09-2023 Anion gap [Moles/Vol] 13.8 mmol/L 6.0-15.0 [facility] Sodium [Moles/volume] in Ser um or PlasmaOrdered By: Valerio Goldberg on 07-09-2023 Sodium [Moles/Vol] 136 mmol/L 136-145 [facility] Urea nitrogen [Mass/volume] in Serum or PlasmaOrdered By: Valerio Goldberg on 07-09-2023 Urea nitrogen [Mass/Vol] 16 mg/dL 7-25 [facility] Ambulatory Visit Summaryon 0 07-08-2023 Ambulatory Visit Summary JM PAT :1965 Visit Date:07/08/2023 Ambulatory Visit Instructions Your Diagnosis Personal history of bladder cancer Elevated PSA BPH with urinary obstruction Prostate mass Metastasis to bone Your Care Team Attending Physician - Bonifacio MITCHELL MD Primary Care Physician - ZACH STOVER DO This Is Your Medications List ciprofloxacin (Cipro 500 mg Tab) Contact prescribing physician if questions or concerns alfuzosin (alfuzosin 10 mg ER Tab) alprazolam (Xanax 0.25 mg Tab) amlodipine (amLODIPine 5 mg Tab) buPROPion (buPROPion 300 mg/24 hours ER Tab) carvedilol (carvedilol 6.25 mg Tab) celecoxib (CeleBREX 200 mg Cap) hydrochlorothiazide (hydrochlorothiazide 25 mg Tab) levothyroxine (levothyroxine 25 mcg (0.025 mg) Tab) losartan (losartan 100 mg Tab) pravastatin (pravastatin 40 mg Tab) zolpidem (Ambien) Procedures Performed Cystoscopy (07/08/2023), Colonoscopy (12/20/2019), Cystoscopy (06/06/2019), Cystoscopy (05/10/2018), Rotator cuff repair (2018), Cystoscopy (08/21/2016), Cystoscopy (08/09/2015), Cystoscopy (08/02/2014), Cystoscopy (09/25/2011), Cystoscopy (03/27/2011), Cystoscopy (08/22/2010), Cystoscopy (02/24/2010), Cystoscopy (11/15/2009), ACL - Anterior cruciate ligament rupture, Colonoscopy. Discharge Vitals Heart Rate (Peripheral) 70 Blood Pressure 134/92 Height 181 cm Height 71 in Weight 85 kg Weight 187 lb BMI 25.95 What to do next Scheduled Follow-Up Appointments 2023 12:45 PM EDT With: STEPHEN PABLO, Bonifacio Hubbard Where: [facility] Patient Educationon 07-08-19 Patient Education Urology Transurethral Resection of the Prostate Transurethral resection of the prostate (TURP) is the removal, or resection, of part of the prostate tissue. This procedure is done to treat an enlarged prostate gland (benign prostatic hyperplasia). The goal of TURP is to remove enough prostate tissue to allow for a normal flow of urine. The procedure will allow you to empty your bladder more completely when you urinate so that you can urinate less often. In a transurethral resection, a thin telescope with a light, a camera, and an electric cutting edge (resectoscope) is passed through the urethra and into the prostate. The opening of the urethra is at the end of the penis. Tell a health care provider about: ? Any allergies you have. ? All medicines you are taking, including vitamins, herbs, eye drops, creams, and dasn-aiv-voitgdv medicines. ? Any problems you or family members have had with anesthetic medicines. ? Any bleeding problems you have. ? Any surgeries you have had. ? Any medical conditions you have. ? Any prostate infections you have had. What are the risks? Generally, this is a safe procedure. However, problems may occur, including: ? Infection. ? Bleeding. ? Allergic reactions to medicines. ? Blood in the urine (hematuria). ? Damage to nearby structures or organs. Other problems may occur, but they are rare. They include: ? Dry ejaculation, or having no semen come out during orgasm. ? Erectile dysfunction, or being unable to have or keep an erection. ? Scarring that leads to narrowing of the urethra. This narrowing may block the flow of urine. ? Inability to control when you urinate (incontinence). ? Deep vein thrombosis. This is a blood clot that can develop in your leg. ? TURP syndrome. This can happen when you lose too much sodium during or after the procedure. Some signs and symptoms of this condition include: ? Weakness. ? Headaches. ? Nausea or vomiting. ? Muscle cramping. What happens before the procedure? When to stop eating and drinking Follow instructions from your health care provider about what you may eat and drink before your procedure. These may include: ? 8 hours before your procedure ? Stop eating most foods. Do not eat meat, fried foods, or fatty foods. ? Eat only light foods, such as toast or crackers. ? All liquids are okay except energy drinks and alcohol. ? 6 hours before your procedure ? Stop eating. ? Drink only clear liquids, such as water, clear fruit juice, black coffee, plain tea, and sports drinks. ? Do not drink energy drinks or alcohol. ? 2 hours before your procedure ? Stop drinking all liquids. ? You may be allowed to take medicines with small sips of water. If you do not follow your health care provider's instructions, your procedure may be delayed or canceled. Medicines Ask your health care provider about: ? Changing or stopping your regular medicines. This is especially important if you are taking diabetes medicines or blood thinners. ? Taking medicines such as aspirin and ibuprofen. These medicines can thin your blood. Do not take these medicines unless your health care provider tells you to take them. ? Taking sand-hsk-mfdkatq medicines, vitamins, herbs, and supplements. Surgery safety Ask your health care provider what steps will be taken to help prevent infection. These steps may include: ? Removing hair at the surgery site. ? Washing skin with a germ-killing soap. ? Taking antibiotic medicine. General instructions ? Do not use any products that contain nicotine or tobacco for at least 4 weeks before the procedure. These products include cigarettes, chewing tobacco, and vaping devices, such as e-cigarettes. If you need help quitting, ask your health care provider. ? If you will be going home right after the procedure, plan to have a responsible adult: ? Take you home from the hospital or clinic. You will not be allowed to drive. ? Care for you for the time you are told. What happens during the procedure? ? An IV will be inserted into one of your veins. ? You will be given one or more of the following: ? A medicine to help you relax (sedative). ? A medicine to make you fall asleep (general anesthetic). ? A medicine that is injected into your spine to numb the area below and slightly above the injection site (spinal anesthetic). ? Your legs will be placed in foot rests (stirrups) so that your legs are apart and your knees are bent. ? The resectoscope will be passed through your urethra to your prostate. ? Parts of your prostate will be resected using the cutting edge of the resectoscope. ? Fluid will be passed to rinse out the cut tissues (irrigation). ? The resectoscope will be removed. ? A small, thin tube (catheter) will be passed through your urethra and into your bladder. The catheter will drain urine into a bag outside of your body. The procedure may vary among health care (more content not included)... Normal [facility] Urology Office/Clinic Noteon 07-08-2023 Urology Office/Clinic Note Chief Complaint Cysto/Trus/bx HPI Staff Jm is a 58 y.o. male here for cysto/TRUS bx. Needs FISH/CYTOL. ABX taken. History of Present Illness Tests reviewed: reviewed PSA, PET scan. I have reviewed the previous health record information and history for this patient from Dr. Mitchell. I have reviewed and verified the staff HPI to be accurate for this encounter. There have been no associated fever, chills, flank pain, or blood in the urine. Denies any urinary infections since last encounter. Review of Systems PHQ Score Initial Depression Screen Score: 0 SCORE ROS - Provider Constitutional: denies weight loss, denies hot flashes. Eyes: denies eye problems. Gastrointestinal: denies nausea, denies vomiting. Cardiovascular: denies chest pain or angina. Integumentary: no dryness Musculoskeletal: denies musculoskeletal symptoms. ENMT: denies otolaryngeal symptoms. Respiratory: no shortness of breath. Heme/Lymph: denies easy bleeding tendency, denies easy bruising tendency. Psychiatric: no confusion, no anxiety. Genitourinary: See HPI. Physical Exam Vitals & Measurements HR: 70(Peripheral) BP: 134/92 HT: 71 in HT: 181 cm WT: 85 kg WT: 187 lb BMI: 25.95 Procedure Operative Information Anesthesia Type: Local Procedure: Local Cystoscopy Complications: None Surgical risks, benefits, details of the procedure have been explained to the patient. Full informed consent has been obtained. Intraoperative Information Prepped: Patient is brought back to the endoscopy suite. Patient is placed in supine position. Patient prepped in the usual fashion with Betadine solution. 2% Xylocaine Jelly is placed per Urethra. After waiting several minutes, the Cystoscope is introduced. The Urethra is: Normal The Prostatic Urethra is: Obstructed, 4 cm long, lateral lobe hypertroph,y upon retroflexion fungating mass measuring 1.5 cm, along with small median lobe. suspicious for malignancy. The Bladder: Normal, neg for recurrence of bladder tumors Trabeculated: Moderate (2) The Ureteral orifices: Show efflux of clear urine Specimens Removed: Voided specimen sent for FISH and Cytology test Removal: Cystoscope is removed. The patient tolerated it well. Postoperative Information Patient is discharged home with antibiotic coverage. Follow up arranged. Assessment/Plan Portions of this record may have been created with voice recognition artificial intelligence software, specifically [employer] for [employer], alooma and or [employer]. Substitutions may have occurred due to the inherent limitations of voice recognition and artificial intelligence software. 1. Personal history of bladder cancer (Z85.51: Personal history of malignant neoplasm of bladder) S/p cysto 06/22/22 Normal, Trabeculated, No tumors, no stones, old scar. Nothing suspicious on the bladder mucosa. Similar findings was retroflexion of the scope. FISH/cytology negative. Cysto IO today without complications. Neg for b.t. recurrence. 2. Elevated PSA (R97.20: Elevated prostate specific antigen [PSA]) PSA: 06/11/20 - 1.91 08/29/21 - 1.10 05/14/23 - 30.50 PET scan (Dr. Stover ordered) 05/12/23 shows abnormal activity is seen involving the right aspect of the prostate gland suspicious for underlying malignancy. Pt voices his concern of having prostate cancer. Pt was scheduled to have TRUS/bx in office today, however a prostate mass was present. See #3 3. Prostate mass (N42.89: Other specified disorders of prostate) Cysto today: upon retroflexion, fungating mass is present measuring 1.5 cm, along with small median lobe. Suspicious for malignancy. See #2. -Will schedule cysto, modified TURP DELROY. The procedural risks, benefits, details, and treatment alternatives have been discussed with the patient. These include bleeding, infection, need for blood transfusion, continued urinary difficulties, urinary leakage which could be permanent, need for catheter, retrograde ejaculation, scar tissue formation in the urinary channel or area of prostate shaving, erection problems, blood clot formation in the lower extremities which could travel to the lungs, among others. A secondary operation could also be required. Full informed consent has been obtained. Will order General anesthesia. 4. Metastasis to bone (C79.51: Secondary malignant neoplasm of bone) See #2 and 3. 5. BPH with urinary obstruction (N40.1: Benign prostatic hyperplasia with lower urinary tract symptoms) Started on Flomax at most recent cysto 06/22/22. Overall this patient unfortunately has what appears to be metastatic carcinoma with bony metastasis with an unknown primary but this patient is certainly high for adenocarcinoma the prostate given the PSA of 30.5 and the rapidity of the rise. He witnessed cystoscopic evaluation today which demonstrates prostatic enlargement which certainly can account for his BPH symptomatology and urgency and occasional incontinence. Unfortunately there appea (more content not included)... Normal [facility] Comment on above: Result Comment: Elec tronically Signed By: Bonifacio MITCHELL MD\.br\Date and Time Signed: 07/08/23 16:55 EDT\.br\Electronically Co-Signed By: Suzanna Gan.br\Date and Time Co-Signed: 07/08/23 16:45 EDT Lab [facility] Thyroxine (T4)on T4 [Mass/Vol] 9.1 ug/dL Normal 4.5-12.0 [facility] Comment on above: Result Comment: Perf ormed at: - [facility] [address] [place] [address] [id number] Courseware Developer: Bowen Loredo PhD, Phone: [phone] PERFORMED BY: [place] [address] PATHOLOGIST ANALOG IC DESIGN ENGINEER LETICIA ELIAS M.D. Performed By: #### L C T4 #### [facility] , No Panel InformationOrdered By: Zach Martínez on 06-28-2023 Free Thyroxine (T4) Direct 9.1 ug/dL 4.5-12.0 [facility] Comment on above: Performed at: [facility] [address] [place] [address] [id number] Director: Bowen Loredo PhD, Phone: [phone] Thyroid Stimulating Hormoneo n 06-28-2023 TSH Qn 5.07 m[IU]/L Normal 0.45-5.33 [facility] Comment on above: Result Comment: PERF ORMED BY: [place] [address] PATHOLOGIST ANALOG IC DESIGN ENGINEER LETICIA ELIAS M.D. Performed By: #### T SH3, T4T, T3T #### [address] Thyrotropin [Units/volume] i n Serum or PlasmaOrdered By: Zach Martínez on 06-28-2023 TSH Qn 5.07 m[IU]/L 0.45-5.33 [facility] Insurance Correspondenceon 0 06-25-2023 Insurance Correspondence [id number]#1.00TIFF Normal [facility] Lab Reportson 06-11-2023 Lab Reports [id number]#1.00TIFF Normal [facility] Lab Reports [id number]#1.00TIFF Normal [facility] RAD - Nuclear Medicine Repor nivia 06-11-2023 RAD - Nuclear Medicine Report [id number]#1.00TIFF Normal [facility] CNPMiri 06-09-2023 CNPN Telephone ([place]) ----- BIJM ([id number]) 1965 M Date Time Provider Department 06/09/23 MIGUEL COLLAZO During your visit today, we recorded the following information about you: Miguel Collazo RN 06/09/2023 4:39 PM Signed Pathologist called to discuss bone marrow bx pathology finding with Dr Ward. Ed: Please advise OCTAVIO Green Vivek, MD 06/09/2023 5:19 PM Signed Path came back inconclusive - looks suspicious and appears to have carcinoma but because the sample is small and the tissue had significant crush artifact, they could not give a definitive answer. I believe he has a biopsy of the prostate arranged with his urologist. He should proceed with that and if it is positive for prostate cancer, we can get a PSMA PET to help figure out the bones. Miguel Collazo RN 06/10/2023 10:41 AM Signed Called and updated pt on pathology findings and Ed's recommendations. Pt is scheduled for Cystoscopy with Dr Mitchell 07/05. I called to Dr Mitchell's office and spoke with Imelda. Pt is scheduled for yearly cystoscopy for his h/o bladder cancer 07/08/23. I let her know the pt thinks he is scheduled 07/05. They are unaware of any Prostate concerns (besides his BPH). They did not have the elevated PSA result from 05/14/23. I discussed the preliminary findings from pathology, as described below per Ed. We do not have the final report to send for Dr Mitchell to review. I did fax all lab results. She will get a message to Dr Mitchell and call us back with an update Called and updated Elroy, as well. He is aware of the scheduled cystoscopy discrepancy. He reports that Dr Mitchell was aware of the elevated PSA and has discussed with him personally. He is aware Imelda sent Dr Mitchell a message and we will await his response. He will call the office tomorrow, if he has not heard back. Encouraged Elroy to let us know when he gets scheduled for his Prostate BX and we will schedule a Ed appt 7-10 days following to discuss results; POC. OCTAVIO Green Natalie, RN 06/11/2023 10:50 AM Signed Called to check status. Dr Mitchell reviewed and added Prostate Bx to appt 07/08/23. The pathology will take approximately 2 weeks to get back (07/22/23). Pt updated and has talked with Joyce at Dr Julienne Posadask: Update/FYI PSS: Please call pt for Ed's schedule week of 07/26/23 for path review (plan of care discussion). OCTAVIO Green Jodi 06/11/2023 11:02 AM Signed Spoke to Elroy, scheduled WedJuly 27 at 10:45 for path review (plan of care discussion). Allergies As of Date: 06/09/2023 (No Known Allergies) Date Reviewed: 06/07/2023 Reviewed by: Jannette Huynh MA - Fully Assessed Reason for Visit: Results [95] Pathology [Other] Prescriptions as of 06/11/2023 - alfuzosin SR (UROXATRAL) 10 mg 24 hr tablet - ALPRAZolam (XANAX) 0.25 mg tablet - amLODIPine (NORVASC) 5 mg tablet - losartan (COZAAR) 100 mg tablet - buPROPion XL (WELLBUTRIN XL) 300 mg 24 hr tablet - carvedilol (COREG) 6.25 mg tablet - celecoxib (CELEBREX) 200 mg capsule - levothyroxine (SYNTHROID) 175 mcg tablet - pravastatin (PRAVACHOL) 40 mg tablet - zolpidem (AMBIEN) 10 mg - cyclobenzaprine (FLEXERIL) 10 mg tablet - hydroCHLOROthiazide 25 mg tablet Take 25 mg by mouth once daily. Problem List As Of Date 06/09/2023 Noted Resolved Hypercalcemia [E83.52] 05/14/2023 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) [C7*05/14/2023 Encounter Status:Closed by MIGUEL COLLAZO on 06/11/23 [facility] CNOVSPon 06-07-2023 CNOVSP Visit (SP) Office ([place]) ----- JM PAT ([id number]) 1965 M Date Time Provider Department 06/07/23 1:45 PM RENE CAST During your visit today, we recorded the following information about you: Temperature Pulse Respiration Blood pressure 97 degrees 77/minute 16/minute 124/81 Weight Height 122.1 kg 1.803 m Rene Cast MD 06/08/2023 9:06 AM Signed NAME: Sharon Path CLINIC NO.: [id number] DATE OF SERVICE: June 07, 2023 (Lexie) Some elements in this clinic note that are critical to medical decision making have been carefully reviewed and included from a prior clinic note dated: May 14, 2023. Referring Provider: Dr. Zach Stover Additional Clinicians involved in Jm Pat's care: DIAGNOSIS: Metastatic bone lesions ASSESSMENT: 57 year oldwith multiple bone lesions in addition to uptake at prostate on PET/CT done after MRI imaging for right shoulder was done and noted suspicious bone lesions. Suspect metastatic prostate cancer and will need histologic confirmation. Would biopsy metastatic sites prior to biopsying prostate given assumption of stage 4 disease. PLAN: Triage call Path results ____- HPI: CASE HISTORY: Reverse Chronological Order 05/28/2023 - Iliac Bone Bx: Pathology: pending 05/12/2023 - PET Skull/Thigh: Abnormal activity is seen involving the right aspect of the prostate gland suspicious for underlying malignancy. Scattered areas of activity are noted involving the humeri, ribs, spine, sacrum, and bony pelvis demonstrates sclerosis on the concurrent CT. Given the prostate findings, metastatic disease is suspected. 05/05/2023 - MRI Shoulder: greater than 3cm anterior-posterior full-thickness tear of the rotator cuff repair. Retraction of the torn fibers to the gland. Marked supraspinatus muscle volume loss. Suspect subcranial decompression and long head of the biceps tenodesis without complication. Large joint effusion and synovitis and debris. 2 nonspecific lesions within the humerus. These are not present on the 2019 CT scan and not radiographically visible. Because of the multiplicity metastatic disease should be considered and recommend PET/CT scan to further evaluate if not already known and evaluated. 04/28/2023 - ED visit: right shoulder dislocated 06/2022 - CT A/P: Acute diverticulitis involving the sigmoid colon. No abscess or free air. There is a small amount of air within the urinary bladder. Normal liver, pancreas, adrenals, kidneys, and bones. 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 Started fasting and has dropped 10 lbs. Had sciatic pain following biopsy but resolved. Due for cysto for bladder with Stephen. Initial Visit, May 14, 2023: Jm Pat presents today Hematology and Oncology evaluation. 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 We reviewed his PET scan together. He needs more diagnostic testing - refer to radiology. If he does have prostate cancer, I recommend endocrine therapy. We discussed possible prognoses. He could have possible side effects of lower testosterone. We talked about insulin driving tumor growth and eating less carbs. Add inulin, psyllium supplements, and fasting protocols. Uncle had liver cancer, father had a stroke, grew up with exposure to smoke. He uses chewing tobacco. 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 Their son is a cook candy. from HANDP from Dr. Stover at [facility] (05/12/2023): History of Present Illness: ... Mr. Pat injured his right shoulder while working, prompting a MRI to be scheduled. Two separate bone lesions were visualized in the right proximal humerus, measuring about 2cm in size. A PET/CT scan revealed multiple bone lesions, involving the humerus, spine, sacrum, and pelvis. There was also an abnormal area in the right lobe of the prostate. He is seeing Dr. Mitchell annually for known hx of bladder cancer. He is seeing Dr Martínez after a total thyroidectomy for a benign mass. PSA: 05/2020 - 08/2021 - 1.10 02/2022 - 2.40 Mr. Pat admits to typical MSK aches and pains. He denies change in appetite, night sweats, or weight loss. Assessments: Metastasis to bone (Primary) Postoperative hypothyroidism Primary hypertension Elevated cholesterol Impaired fasting glucose Obstructive sleep apnea from Emergency Department Visit at [facility] (04/28/2023): History from Patient: 57-year-old patient presents to (more content not included)... Normal [facility] Dante 06-07-2023 CNPN Telephone (NCCAP) ----- BIJM W ([id number]) 1965 M Date Time Provider Department 06/07/23 RENE CAST During your visit today, we recorded the following information about you: Meredith Chavez 06/07/2023 1:[address] Ward is requesting Triage to call Path results . Miguel Collazo, RN 06/08/2023 9:51 AM Signed Spoke with Pathology at . She reports a fellow had ordered additional stains this morning and it is not yet assigned to a pathologist. She will send a message and call back to update status, prelim results, once she gets a response. Rene Rivera MD 06/08/2023 11:47 AM Signed Ok thank you! Miguel Collazo RN 06/09/2023 9:19 AM Signed Is there anything I can do to speed up the process? Should I call [facility] pathology and simply ask ?what?s up?? Will your office call pathology? Am I just overthinking this? Elroy Pathology update: provided to pt as well to keep him updated as well. Good morning Elroy, I reached out to pathology yesterday morning. They had ordered some additional testing, which is not usual. This is to aid in confirming or ruling out a diagnosis. I spoke to them again this morning. The testing is under review by a pathologist. This will take a few more days to result. I will be checking often for any final results. Dr Ward will be in touch once they are in and reviewed. Best regards, OCTAVIO Greenk: FYI Allergies As of Date: 06/07/2023 (No Known Allergies) Date Reviewed: 06/07/2023 Reviewed by: Jannette Huynh MA - Fully Assessed Reason for Visit: Results [95] Prescriptions as of 06/09/2023 - alfuzosin SR (UROXATRAL) 10 mg 24 hr tablet - ALPRAZolam (XANAX) 0.25 mg tablet - amLODIPine (NORVASC) 5 mg tablet - losartan (COZAAR) 100 mg tablet - buPROPion XL (WELLBUTRIN XL) 300 mg 24 hr tablet - carvedilol (COREG) 6.25 mg tablet - celecoxib (CELEBREX) 200 mg capsule - levothyroxine (SYNTHROID) 175 mcg tablet - pravastatin (PRAVACHOL) 40 mg tablet - zolpidem (AMBIEN) 10 mg - cyclobenzaprine (FLEXERIL) 10 mg tablet - hydroCHLOROthiazide 25 mg tablet Take 25 mg by mouth once daily. Problem List As Of Date 06/07/2023 Noted Resolved Hypercalcemia [E83.52] 05/14/2023 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) [C7*05/14/2023 Encounter Status:Closed by MIGUEL COLLAZO on 06/09/23 [facility] Reminderson 06-03-2023 Reminders - From: Inocencia Bocanegra To: JAZ Kim Stephen; Sent: 08/18/2022 08:27:58 EDT Show up: 05/20/2023 08:27:00 EST Subject: 1 year cysto/FISH Due Date/Time: 07/02/2023 08:27:00 EDT Reminder/Recall Schedule repeat testing. Patient needs 1 year cysto/FISH in June 2023. Test: Cystoscopy Test due in: 12 months Left message for pt to call office Pt is scheduled. [facility] BRIEF OP NOTon 05-28-2023 BRIEF OP NOT HNO ID: [id number] Author: LINA DESHPANDE MD Service: Interventional Radiology Author Type: Physician Type: Brief Op Note Filed: 05/28/2023 09:53 Note Text: BRIEF OPERATIVE / PROCEDURE NOTE LOG ID: [id number] SURGERY/PROCEDURE DATE: 05/28/2023 INCISION/PROCEDURE START TIME: 9:19 AM INCISION CLOSE/PROCEDURE END TIME: 9:40 AM SURGEON(S)/PROCEDURALIST( S) AND BRICK AND BLOCK MASON(S): Surgeon(s) and Role: * Lina Deshpande MD - Primary No Additional Staff SURGERY/PROCEDURE(S): CT-guided bone lesion biopsy ANESTHESIA: Procedural Sedation FINDINGS: Left iliac bone sclerotic lesion biopsy performed. 3 separate passes. ESTIMATED BLOOD LOSS: <20 mls SPECIMENS: 14G x 3 COMPLICATIONS: None CLOSURE TECHNIQUE: Primary PRE-OP/PRE-PROCEDURE DIAGNOSIS: Elevated PSA; multiple FDG-avid bone lesions; h/o bladder cancer (2009) POST-OP/POST-PROCEDURE DIAGNOSIS: Same as Preop SIGNATURE: Lina Deshpande MD PATIENT NAME: Jm Pat DATE: May 28, 2023 TIME: 9:51 AM [facility] CT BX RIB/PELV/CROOK/SPINE P ROCon 05-28-2023 CT BX RIB/PELV/CROOK/SPINE PROC * * *Final Report* * * DATE OF EXAM: May 28 2023 9:48AM [facility] 2036 - CT BX RIB/PELV/CROOK/SPINE PROC / PROCEDURE REASON: BIOPSY * * * * Physician Interpretation * * * * PROCEDURE: CT GUIDED bone lesion Biopsy HISTORY: 57 rolled male with distant history of bladder cancer and recent elevation of prostate specific antigen. The patient has multiple FDG avid bone lesions throughout the axial and appendicular skeleton. A request was made for bone lesion biopsy. After review of PET CT from outside institution dated 05/12/2023, a decision was made to biopsy the LEFT iliac bone lesion. CONSENT: Risks, benefits, treatment options, potential complications and personnel to be involved were discussed (including the risks of radiation exposure, contrast and anesthesia administration, and any equipment needed for the procedure to ensure best possible outcome) with the patient and all questions were answered and consent was obtained prior to procedure. MEDICATION RECONCILIATION: The patient's medications and allergies were reviewed in the electronic medical record and reconciled to the proposed procedure/treatment. JIMMY-PROCEDURE DISCUSSION: The appropriate elements of the pre-procedure discussion, safety check list and sign-out were performed. TIME OUT: A time out was performed immediately prior to procedure start with the nursing, and interventional team, correctly identifying the name, date of , procedure, anatomy (including marking of site and side if applicable), patient position, procedure consent form, relevant diagnostic and radiology test results, antibiotic administration if applicable, safety precautions, and procedure-specific equipment needs. Start of procedure: 9:19 AM End of procedure: 9:40 AM Patient position: Prone Anesthesia: After establishing pulse oximetry, BP and EKG monitoring by the Radiology nurse, moderate sedation with Versed and Fentanyl was administered. Intra-service time (monitoring for moderate sedation): 34 minutes Patient monitoring: I personally supervised and directed an independent trained observer who assisted in monitoring the patient?s level of consciousness and physiological status throughout the procedure. Local anesthesia: 2 % lidocaine ANTIBIOTICS: None Antibiotic infusion start time: N/A ADDITIONAL MED: None ADDITIONAL MED: None Dose-Length Product (DLP): 497 mGy*cm. CT Dose Reduction Employed: Automated exposure control (AEC) TECHNIQUE: High-resolution vqw-dxnjpmoz-zrfascxr helical CT of the iliac bones was performed. A safe percutaneous approach to the LEFT posterior iliac bone was localized under CT and skin overlying the mass was marked. The patient was prepped and draped using all elements of maximal sterile barrier technique (cap, mask, sterile gown, sterile gloves, a large sterile sheet, hand hygiene and cutaneous antisepsis), sterile ultrasound gel and sterile ultrasound probe covers. After local anesthesia, a 11G Cook bone trochar guiding trocar was placed into the LEFT iliac bone lesion under CT guidance. Through the guiding needle, biopsies were performed using a 14-gauge coaxial biopsy trochar. The trocar was removed and pressure held until hemostasis was achieved. RESULT: Pre-biopsy CT demonstrated mixed sclerotic lesions in both iliac bones. Post biopsy CT demonstrated expected postprocedural changes without evidence of complication. Specimens: Core (G): 14 Number of specimens: 3 Laboratory evaluations: Surgical Pathology The patient tolerated the procedure well. There were no significant complications and no other complications during the procedure. CONCLUSION: The patient was comfortable and was transferred to the transferred to the PACU in stable condition. Estimated Blood Loss: Minimal ATTENDING RADIOLOGIST: Lina Deshpande MD BRICK AND BLOCK MASON: None The procedure was performed by the: attending radiologist, without an care assistant. The attending radiologist performed the following procedural activities: Entire procedure IMPRESSION: Successful bone marrow biopsy and aspiration as described above. Purchasing Department Clerk: PSCB Transcribe Date/Time: May 28 2023 11:40A Dictated by : LINA DESHPANDE MD This examination was interpreted and the report reviewed and electronically signed by: LINA DESHPANDE MD on May 28 2023 11:44AM EST [id number] [facility] HISTORY PHYSICALon HISTORY PHYSICAL HNO ID: [id number] Author: LINA DESHPANDE MD Service: ? Author Type: Physician Type: H&P Filed: 05/28/2023 08:53 Note Text: RADIOLOGY PROCEDURAL SEDATION HISTORY AND PHYSICAL EXAM SERVICE DATE: 05/28/2023 SERVICE TIME: 8:52 AM Subjective HPI: This is a 57 year old male who presents with elevated PSA and multiple FDG-avid bone lesions. Plan for bone lesion biopsy. No known primary, but h/o bladder cancer PROCEDURE SCHEDULED: * No surgery found * RADIOLOGY ORDER PLACED: PAST ANESTHESIA HISTORY: No history of adverse event No past medical history on file. No past surgical history on file. Prior to Admission medications as of 05/28/23 0744 Medication Sig Last Dose Taking alfuzosin SR (UROXATRAL) 10 mg 24 hr tablet ALPRAZolam (XANAX) 0.25 mg tablet amLODIPine (NORVASC) 5 mg tablet losartan (COZAAR) 100 mg tablet buPROPion XL (WELLBUTRIN XL) 300 mg 24 hr tablet carvedilol (COREG) 6.25 mg tablet celecoxib (CELEBREX) 200 mg capsule levothyroxine (SYNTHROID) 175 mcg tablet pravastatin (PRAVACHOL) 40 mg tablet zolpidem (AMBIEN) 10 mg cyclobenzaprine (FLEXERIL) 10 mg tablet hydroCHLOROthiazide 25 mg tablet Take 25 mg by mouth once daily. ALLERGIES No Known Allergies Objective PHYSICAL EXAM: The remainder of the physical exam is noncontributory. AIRWAY: II LUNGS: Lungs clear to auscultation, Good diaphragmatic excursion CARDIAC: Normal S1 and S2; no rubs, murmurs, or gallops Assessment/Plan ASA Class: III Provisional Diagnosis/Treatment Plan: Multiple bone lesions. Plan for bone lesion biopsy SIGNATURE: Lina Deshpande MD PATIENT NAME: Jm Pat DATE: May 28, 2023 TIME: 8:52 AM [facility] PT EDon 05-28-2023 PT ED HNO ID: [id number] Author: RAÚL KLEIN RN Service: Radiology Author Type: Registered Nurse Type: Patient Education Filed: 05/28/2023 07:39 Note Text: PATIENT EDUCATION TOPIC: PROCEDURE / SURGERY: Procedure/Surgery: Bone Biopsy PATIENT NAME: Jm Pat PATIENT LOCATION: INTERVENTIONAL RADIOL* READINESS TO LEARN COGNITIVE ABILITY: Alert and oriented MOTIVATION TO LEARN: Interested FAMILY SUPPORT: High - Very involved in pt care INSTRUCTION PROVIDED TO: Patient PATIENT LEARNS BEST BY: Written Instruction - Hand-outs Verbal Instruction FACTORS AFFECTING LEARNING: None PHYSICAL LIMITATIONS AFFECTING LEARNING: None LEARNING RESPONSE DIAGNOSIS: ADULT: Bone mets PATIENT/FAMILY RESPONSE: Verbalizes understanding of: POST-PROCEDURE INSTRUCTIONS-Correct actions to take to reduce post procedure complications PRE-PROCEDURE INSTRUCTIONS-Correct action to take to follow pre-procedure instructions METHOD OF INSTRUCTION: Written instruction - handouts Verbal instruction FOLLOW-UP PLAN: Follow-up with Primary Care INSTRUCTIONAL AIDS USED: NA SUPPLEMENTAL MATERIAL PROVIDED TO PATIENT: None REFERRAL (RECOMMENDATION): None Electronically Signed By: Raúl Klein [facility] SURGICAL PATHOLOGYon 024 CASE REPORT [facility] Comment on above: Order Comment: Speci men Type: SPECIMEN FROM BONE Ordering Facility: [facility] Address: [address] [place] [address] Result Comment: Surg ical Pathology Report Case: [id number] Authorizing Provider: Lina Deshpande MD Collected: 05/28/2023 09:25 AM Ordering Location: [facility] INTERVENTIONAL Received: 05/28/2023 09:58 AM RADIOLOGY Pathologist: Roberta Farris MD Specimen: BONE BIOPSY, left posterior iliac Performed By: #### S #### [facility] CLIA [id number] [address] [place] [address] [place] [address] [place] CLINICAL HISTORY Normal [facility] Comment on above: Order Comment: Speci men Type: SPECIMEN FROM BONE Ordering Facility: [facility] Address: [address] [place] [address] Result Comment: Pre- op diagnosis: 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) [C79.51, C80.1] Performed By: #### S #### [facility] CLIA [id number] [address] [place] [address] [place] [address] [place] DIAGNOSIS COMMENT Normal [facility] Comment on above: Order Comment: Speci men Type: SPECIMEN FROM BONE Ordering Facility: [facility] Address: [address] [place] [address] Result Comment: Hist ologic evaluation reveals small fragments of bone with mostly crushed cellular elements. While focal atypical cells are noted, the morphologic evaluation is hindered by the prominent crush artifact. Immunostains show equivocal keratin AE1/AE3 staining in the crushed cells. Additional stains for GATA3, NKX3.1, TTF1, CDX2, ERG and CD31 cannot be reliably interpreted due to extensive crush artifact. Overall, while these findings are highly suspicious of a neoplastic process, including metastatic carcinoma, additional sampling is necessary for more definitive classification. Laboratory Developed Test (LDT) Disclaimer: Performance characteristics of immunohistochemical, immunofluorescent and chromogenic in-situ hybridization tests have been determined by the performing laboratory within [facility]???s [facility] [place] ([facility], [facility], [facility], [facility], On License Of [facility], or [facility]) in a manner consistent with CLIA requirements. One or more of these tests have not been cleared or approved by the FDA. [facility] is regulated under CLIA as qualified to perform high-complexity testing. These tests are used for clinical purposes. They should not be regarded as investigational or for research. Positive and negative controls stain appropriately. Performed By: #### S #### [facility] CLIA [id number] [address] [place] [address] OF [facility] FINAL DIAGNOSIS Normal [facility] Comment on above: Order Comment: Speci men Type: SPECIMEN FROM BONE Ordering Facility: [facility] Address: [address] [place] [address] Result Comment: Bone , left posterior iliac, biopsy: - Fragments of bone with extensive crush artifact and rare atypical cells. See comment. Performed By: #### S #### [facility] CLIA [id number] [address] [place] [address] STATES OF [facility] FINAL PERFORMING LAB Normal [facility] Comment on above: Order Comment: Speci men Type: SPECIMEN FROM BONE Ordering Facility: [facility] Address: [address] [place] [address] Result Comment: Diag nostic interpretation performed at [facility], [address] [place] [address] CLIA# [id number] Person Investigator: Maikel Pinon M.D. Performed By: #### S #### [facility] CLIA [id number] [address] [place] [address] [place] GROSS DESCRIPTION A. BONE BIOPSY Normal [facility] Comment on above: Order Comment: Speci men Type: SPECIMEN FROM BONE Ordering Facility: [facility] Address: [address] [place] [address] Result Comment: Rece ived in formalin labeled as left posterior iliac is a fragmented vega-pink, cylindrical, gritty bone core reapproximated to measure 2.5 cm in length by 0.3 cm in diameter. Totally submitted in 1 cassette after light decalcification. Gross examination performed at [facility], [address] [place] [id number] CLIA#[id number] RSA May 28, 2023 2:42 PM Performed By: #### S #### [facility] CLIA [id number] [address] [facility] [place] [id number] [facility] CNPMiri 05-21-2023 CNPN Telephone (IRRFV) ----- JM PAT ([id number]) 1965 M Date Time Provider Department 05/21/23 CLAUDIA CEDILLO IRR During your visit today, we recorded the following information about you: Claudia Cedillo, RN 05/21/2023 12:01 PM Signed You are scheduled for a bone biopsy, on 05/28/2023. You are to arrive at 7:30 am and Report to [facility] First Floor Radiology Registration Desk. You can expect to be here for 4-8 hours. Diet: Do not eat any solid food after midnight the day of/night before your procedure. You may drink clear liquids until 6:30 am, which means black coffee, apple juice, black tea, or water only. Medications: Ok to take your cardiac, blood pressure, anti-seizure, and chronic pain medications with a sip of water, please take prior to arrival. Bring your current medication list. Dramatic Director/Transportation: How will you be arriving for your procedure? Private car. You will need a responsible adult to accompany you to and from the procedure. If you have any questions call [phone], option 3. Allergies As of Date: 05/21/2023 (Not on File) Date Reviewed: 05/14/2023 Reviewed by: Brenda Marroquin Ma - Fully Assessed Reason for Visit: Radiology Pre Procedure Instructions [1506] Prescriptions as of 05/21/2023 - alfuzosin SR (UROXATRAL) 10 mg 24 hr tablet - ALPRAZolam (XANAX) 0.25 mg tablet - amLODIPine (NORVASC) 5 mg tablet - losartan (COZAAR) 100 mg tablet - buPROPion XL (WELLBUTRIN XL) 300 mg 24 hr tablet - carvedilol (COREG) 6.25 mg tablet - celecoxib (CELEBREX) 200 mg capsule - levothyroxine (SYNTHROID) 175 mcg tablet - pravastatin (PRAVACHOL) 40 mg tablet - zolpidem (AMBIEN) 10 mg - cyclobenzaprine (FLEXERIL) 10 mg tablet - hydroCHLOROthiazide 25 mg tablet Take 25 mg by mouth once daily. Problem List As Of Date 05/21/2023 Noted Resolved Hypercalcemia [E83.52] 05/14/2023 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) [C7*05/14/2023 Encounter Status:Closed by CLAUDIA [facility]EDILLO on [facility]/21/23 [facility] JM PAT ([id number]) 1965 M Date Time Provider Department 05/19/23 RENE CAST During your visit today, we recorded the following information about you: Sujata Bah 05/19/2023 1:04 PM Signed [place] paperwork completed and placed in folder to be signed. Miguel Sanchez RN 05/24/2023 10:55 AM Signed Pt called to check status. Forms have been signed and I faxed to [phone] per pt request. Placed to be scanned with Brian Soler. Miguel Collazo RN Allergies As of Date: 05/19/2023 (Not on File) Date Reviewed: 05/14/2023 Reviewed by: Brenda Marroquin Ma - Fully Assessed Reason for Visit: [facility] Paperwork [3249] Prescriptions as of 05/24/2023 - alfuzosin SR (UROXATRAL) 10 mg 24 hr tablet - ALPRAZolam (XANAX) 0.25 mg tablet - amLODIPine (NORVASC) 5 mg tablet - losartan (COZAAR) 100 mg tablet - buPROPion XL (WELLBUTRIN XL) 300 mg 24 hr tablet - carvedilol (COREG) 6.25 mg tablet - celecoxib (CELEBREX) 200 mg capsule - levothyroxine (SYNTHROID) 175 mcg tablet - pravastatin (PRAVACHOL) 40 mg tablet - zolpidem (AMBIEN) 10 mg - cyclobenzaprine (FLEXERIL) 10 mg tablet - hydroCHLOROthiazide 25 mg tablet Take 25 mg by mouth once daily. Problem List As Of Date 05/19/2023 Noted Resolved Hypercalcemia [E83.52] 05/14/2023 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) [C7*05/14/2023 Encounter Status:Closed by MIGUEL COLLAZO on 05/24/23 [facility] 05-17-2023 [facility] ----- JM PAT ([id number]) 1965 M Date Time Provider Department 05/17/23 RENE CAST [facility] During your visit today, we recorded the following information about you: Jackie Bhatia 05/17/2023 9:24 AM Signed Bandar Marquis, could you help out with this? Thanks! Reen Cast MD [facility] Clerical Pool; [facility] Triage Pool 1. Refer to IR for biopsy bone. 2. RTC after biopsy to review. Miguel - do I have the right order for IR bone lesion biopsy? - not looking for bone marrow - thanks [place] Rolanda 05/17/2023 12:46 PM Signed Kandis Leone You; Jackie Bhatia; Meredith Chavez 1 hour ago (11:44 AM) CHARU For the region we just need the specific location you would like biopsied? For Main you would need a new order, Imaging Guided Biopsy Bone... I can pend the order after I know what exactly you want biopsied. Rene Esteban MD 05/18/2023 12:19 PM Signed Bandar Marquis, He has multiple lesions - posterior iliac crest, right proximal humerus, multiple vertebral bodies.... all visible on PET/CT I was hoping radiology would review and help select the easiest one. Any suggestions? Miguel Collazo, OCTAVIO 05/19/2023 8:24 AM Signed This is what Dr. Deshpande said, Can try, but might be hard to target specific areas based on imaging. Most likely will do one of the posterior iliac bones. Whitney Pt is scheduled 05/28/23. PSS: Please call pt to schedule 7-10 days from biopsy for results. Miguel Collazo, RN GretchendarrylRolanda 05/19/2023 8:35 AM Signed Patient is scheduled for follow up with Ed on 06/07 -- he is unaware of the biopsy appointment yet, so I informed him and he's in agreement right now w/ date and time. Appointment was just made this morning so I told him they were probably in process of calling him and sending instructions through his mychart. Patient is all set. Thanks! Rolanda Millard Allergies As of Date: 05/17/2023 (Not on File) Date Reviewed: 05/14/2023 Reviewed by: Brenda Marroquin Ma - Fully Assessed Reason for Visit: Biopsy [1351] Primary Visit Diagnosis: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) [C79.51, C80.1] Prescriptions as of 05/19/2023 - alfuzosin SR (UROXATRAL) 10 mg 24 hr tablet - ALPRAZolam (XANAX) 0.25 mg tablet - amLODIPine (NORVASC) 5 mg tablet - losartan (COZAAR) 100 mg tablet - buPROPion XL (WELLBUTRIN XL) 300 mg 24 hr tablet - carvedilol (COREG) 6.25 mg tablet - celecoxib (CELEBREX) 200 mg capsule - levothyroxine (SYNTHROID) 175 mcg tablet - pravastatin (PRAVACHOL) 40 mg tablet - zolpidem (AMBIEN) 10 mg - cyclobenzaprine (FLEXERIL) 10 mg tablet - hydroCHLOROthiazide 25 mg tablet Take 25 mg by mouth once daily. Problem List As Of Date 05/17/2023 Noted Resolved Hypercalcemia [E83.52] 05/14/2023 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) [C7*05/14/2023 Encounter Status:Closed by MIGUEL COLLAZO on 05/19/23 Normal [facility] CBC W Auto Differential pane l (Bld)on 05-14-2023 Basophils (Bld) [#/Vol] 0.04 10*3/uL Normal <0.11 [facility] Comment on above: Order Comment: Speci men Type: BLOOD SPECIMEN Ordering Facility: [facility] Address: [address] [place] [address] Performed By: #### 5 7021-8 #### [facility] CLIA [id number] [address] [place] [address] 90064 Basophils/100 WBC (Bld) 0.6 % Normal [facility] Comment on above: Order Comment: Speci men Type: BLOOD SPECIMEN Ordering Facility: [facility] Address: [address] [place] [address] Performed By: #### 5 7021-8 #### [facility] CLIA [id number] [address] [place] [address] 52726 Differential cell count method Nom (Bld) Auto Normal [facility] Comment on above: Order Comment: Speci men Type: BLOOD SPECIMEN Ordering Facility: [facility] Address: [address] [place] [address] Performed By: #### 5 7021-8 #### [facility] CLIA [id number] [address] [place] [address] 00705 Eosinophils (Bld) [#/Vol] 0.20 10*3/uL Normal <0.46 [facility] Comment on above: Order Comment: Speci men Type: BLOOD SPECIMEN Ordering Facility: [facility] Address: [facility] [place] [address] Performed By: #### 5 7021-8 #### [facility] CLIA [id number] [address] [place] [address] 79431 Eosinophils/100 WBC (Bld) 2.8 % Normal [facility] Comment on above: Order Comment: Speci men Type: BLOOD SPECIMEN Ordering Facility: [facility] Address: [address] [place] [address] Performed By: #### 5 7021-8 #### [facility] CLIA [id number] [address] [place] [address] 56912 Erythrocyte distribution width (RBC) [Ratio] 12.5 % Normal 11.5-15.0 [facility] Comment on above: Order Comment: Speci men Type: BLOOD SPECIMEN Ordering Facility: [facility] Address: [address] [place] [address] Performed By: #### 5 7021-8 #### [facility] CLIA [id number] [address] [place] [address] 87328 Hematocrit (Bld) [Volume fraction] 42.8 % Normal 39.0-51.0 [facility] Comment on above: Order Comment: Speci men Type: BLOOD SPECIMEN Ordering Facility: [facility] Address: [address] [place] [address] Performed By: #### 5 7021-8 #### [facility] CLIA [id number] [address] [place] [address] 10845 Hemoglobin (Bld) [Mass/Vol] 15.6 g/dL Normal 13.0-17.0 [facility] Comment on above: Order Comment: Speci men Type: BLOOD SPECIMEN Ordering Facility: [facility] Address: [address] [place] [address] Performed By: #### 5 7021-8 #### [facility] CLIA [id number] [address] [place] [address] Immature granulocytes (Bld) [#/Vol] 0.04 10*3/uL Normal <0.10 [facility] Comment on above: Order Comment: Speci men Type: BLOOD SPECIMEN Ordering Facility: [facility] Address: [address] [place] [address] Performed By: #### 5 7021-8 #### [facility] CLIA [id number] [address] [place] [address] 90920 Immature granulocytes/100 WBC (Bld) 0.6 % Normal [facility] Comment on above: Order Comment: Speci men Type: BLOOD SPECIMEN Ordering Facility: [facility] Address: [address] [place] [address] Performed By: #### 5 7021-8 #### [facility] CLIA [id number] [address] [place] [address] 58765 Lymphocytes (Bld) [#/Vol] 1.95 10*3/uL Normal 1.00-4.00 [facility] Comment on above: Order Comment: Speci men Type: BLOOD SPECIMEN Ordering Facility: [facility] Address: [address] [place] [address] Performed By: #### 5 7021-8 #### [facility] CLIA [id number] [address] [place] [address] 29943 Lymphocytes/100 WBC (Bld) 27.7 % Normal [facility] Comment on above: Order Comment: Speci men Type: BLOOD SPECIMEN Ordering Facility: [facility] Address: [address] [place] [address] Performed By: #### 5 7021-8 #### [facility] CLIA [id number] [address] [place] [address] 30363 MCH (RBC) [Entitic mass] 30.6 pg Normal 26.0-34.0 [facility] Comment on above: Order Comment: Speci men Type: BLOOD SPECIMEN Ordering Facility: [facility] Address: [address] [place] [address] Performed By: #### 5 7021-8 #### [facility] CLIA [id number] [address] [place] [address] 52579 MCHC (RBC) [Mass/Vol] 36.4 g/dL High 30.5-36.0 [facility] Comment on above: Order Comment: Speci men Type: BLOOD SPECIMEN Ordering Facility: [facility] Address: [address] [place] [address] Performed By: #### 5 7021-8 #### [facility] CLIA [id number] [address] [place] [address] 95545 MCV (RBC) [Entitic vol] 83.9 fL Normal 80.0-100.0 [facility] Comment on above: Order Comment: Speci men Type: BLOOD SPECIMEN Ordering Facility: [facility] Address: [address] [place] [address] Performed By: #### 5 7021-8 #### [facility] CLIA [id number] [address] [place] [address] 25784 Monocytes (Bld) [#/Vol] 0.82 10*3/uL Normal <0.87 [facility] Comment on above: Order Comment: Speci men Type: BLOOD SPECIMEN Ordering Facility: [facility] Address: [address] [place] [address] Performed By: #### 5 7021-8 #### [facility] CLIA [id number] [address] [place] [address] 57089 Monocytes/100 WBC (Bld) 11.7 % Normal [facility] Comment on above: Order Comment: Speci men Type: BLOOD SPECIMEN Ordering Facility: [facility] Address: [address] [place] [address] Performed By: #### 5 7021-8 #### [facility] CLIA [id number] [address] [place] [address] 63523 Neutrophils (Bld) [#/Vol] 3.98 10*3/uL Normal 1.45-7.50 [facility] Comment on above: Order Comment: Speci men Type: BLOOD SPECIMEN Ordering Facility: [facility] Address: [address] [place] [address] Performed By: #### 5 7021-8 #### [facility] CLIA [id number] [address] [place] [address] Neutrophils/100 WBC (Bld) 56.6 % Normal [facility] Comment on above: Order Comment: Speci men Type: BLOOD SPECIMEN Ordering Facility: [facility] Address: [address] [place] [address] Performed By: #### 5 7021-8 #### [facility] CLIA [id number] [address] [place] [address] Nucleated RBC (Bld) [#/Vol] 10*3/uL Normal <0.01 [facility] Comment on above: Order Comment: Speci men Type: BLOOD SPECIMEN Ordering Facility: [facility] Address: [address] [place] [address] Performed By: #### 5 7021-8 #### [facility] CLIA [id number] [address] [place] [address] 15604 Nucleated RBC/100 WBC (Bld) [Ratio] 0.0 /100 WBC Normal [facility] Comment on above: Order Comment: Speci men Type: BLOOD SPECIMEN Ordering Facility: [facility] Address: [address] [place] [address] Performed By: #### 5 7021-8 #### [facility] CLIA [id number] [address] [place] [address] Platelet mean volume (Bld) [Entitic vol] 9.3 fL Normal 9.0-12.7 [facility] Comment on above: Order Comment: Speci men Type: BLOOD SPECIMEN Ordering Facility: [facility] Address: [address] [place] [address] Performed By: #### 5 7021-8 #### [facility] CLIA [id number] [address] [place] [address] 44284 Platelets (Bld) [#/Vol] 207 10*3/uL Normal 150-400 [facility] Comment on above: Order Comment: Speci men Type: BLOOD SPECIMEN Ordering Facility: [facility] Address: [address] [place] [address] Performed By: #### 5 7021-8 #### [facility] CLIA [id number] [address] [place] [address] 87357 RBC (Bld) [#/Vol] 5.10 10*6/uL Normal 4.20-6.00 [facility] Comment on above: Order Comment: Speci men Type: BLOOD SPECIMEN Ordering Facility: [facility] Address: [address] [place] [address] Performed By: #### 5 7021-8 #### [facility] CLIA [id number] [address] [place] [address] 28477 WBC (Bld) [#/Vol] 7.03 10*3/uL Normal 3.70-11.00 [facility] Comment on above: Order Comment: Speci men Type: BLOOD SPECIMEN Ordering Facility: [facility] Address: [address] [place] [address] Performed By: #### 5 7021-8 #### [facility] CLIA [id number] [address] [place] [address] 48685 CNAMERICAPon 05-14-2023 [facility] Visit (SP) Office ([place]) ----- JM PAT ([id number]) 1965 M Date Time Provider Department 05/14/23 11:15 AM RENE CAST During your visit today, we recorded the following information about you: Temperature Pulse Respiration Blood pressure 97.6 degrees 74/minute 16/minute 154/87 Weight Height 125.2 kg 1.803 m Rene Cast MD 05/16/2023 10:25 AM Signed NAME: mJ Pat CLINIC NO.: [id number] DATE OF SERVICE: May 14, 2023 Referring Provider: Dr. Zach Stover Consultation requested by Dr. Zach Stover for an opinion regarding Mr. Jm Pat, and my final recommendations will be communicated back to the requesting physician by way of shared medical record or letter via US mail. Additional Clinicians involved in Jm Pat's care: DIAGNOSIS: Metastatic bone lesions ASSESSMENT: 57 year oldwith multiple bone lesions in addition to uptake at prostate on PET/CT done after MRI imaging for right shoulder was done and noted suspicious bone lesions. Suspect metastatic prostate cancer and will need histologic confirmation. Would biopsy metastatic sites prior to biopsying prostate given assumption of stage 4 disease. PLAN: Refer to IR for biopsy bone. RTC after biopsy to review. ____- HPI: CASE HISTORY: Reverse Chronological Order 05/12/2023 - PET Skull/Thigh: Abnormal activity is seen involving the right aspect of the prostate gland suspicious for underlying malignancy. Scattered areas of activity are noted involving the humeri, ribs, spine, sacrum, and bony pelvis demonstrates sclerosis on the concurrent CT. Given the prostate findings, metastatic disease is suspected. 05/05/2023 - MRI Shoulder: greater than 3cm anterior-posterior full-thickness tear of the rotator cuff repair. Retraction of the torn fibers to the gland. Marked supraspinatus muscle volume loss. Suspect subcranial decompression and long head of the biceps tenodesis without complication. Large joint effusion and synovitis and debris. 2 nonspecific lesions within the humerus. These are not present on the 2019 CT scan and not radiographically visible. Because of the multiplicity metastatic disease should be considered and recommend PET/CT scan to further evaluate if not already known and evaluated. 04/28/2023 - ED visit: right shoulder dislocated 06/2022 - CT A/P: Acute diverticulitis involving the sigmoid colon. No abscess or free air. There is a small amount of air within the urinary bladder. Normal liver, pancreas, adrenals, kidneys, and bones. 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 We reviewed his PET scan together. He needs more diagnostic testing - refer to radiology. If he does have prostate cancer, I recommend endocrine therapy. We discussed possible prognoses. He could have possible side effects of lower testosterone. We talked about insulin driving tumor growth and eating less carbs. Add inulin, psyllium supplements, and fasting protocols. Uncle had liver cancer, father had a stroke, grew up with exposure to smoke. He uses chewing tobacco. 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 Their son is a cook candy. from HANDP from Dr. Stover at [facility] (05/12/2023): History of Present Illness: ... Mr. Pat injured his right shoulder while working, prompting a MRI to be scheduled. Two separate bone lesions were visualized in the right proximal humerus, measuring about 2cm in size. A PET/CT scan revealed multiple bone lesions, involving the humerus, spine, sacrum, and pelvis. There was also an abnormal area in the right lobe of the prostate. He is seeing Dr. Mitchell annually for known hx of bladder cancer. He is seeing Dr Martínez after a total thyroidectomy for a benign mass. PSA: 05/2020 - 08/2021 - 1.10 02/2022 - 2.40 Mr. Pat admits to typical MSK aches and pains. He denies change in appetite, night sweats, or weight loss. Assessments: Metastasis to bone (Primary) Postoperative hypothyroidism Primary hypertension Elevated cholesterol Impaired fasting glucose Obstructive sleep apnea from Emergency Department Visit at [facility] (04/28/2023): History from Patient: 57-year-old patient presents to the emergency department with concerns of injuring his right shoulder. 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 Normal [facility] Calcium.ionized [Moles/Vol]o n 05-14-2023 Calcium.ionized (Bld) [Mass/Vol] 1.19 mmol/L Normal 1.08-1.30 [facility] Comment on above: Order Comment: Speci men Type: BLOOD SPECIMEN Ordering Facility: [facility] Address: [address] [place] [address] Performed By: #### 5 7021-8 #### [facility] CLIA [id number] [address] [place] [address] 22324 Calcium.ionized adjusted to pH 7.4 (Bld) [Moles/Vol] 1.21 mmol/L Normal 1.08-1.30 [facility] Comment on above: Order Comment: Speci men Type: BLOOD SPECIMEN Ordering Facility: [facility] Address: [address] [place] [address] Performed By: #### 5 7021-8 #### [facility] CLIA [id number] [address] [place] [address] 69967 Comprehensive metabolic 2000 panelon 05-14-2023 Albumin [Mass/Vol] 4.4 g/dL Normal 3.9-4.9 [facility] Comment on above: Order Comment: Speci men Type: BLOOD SPECIMEN Ordering Facility: [facility] Address: [address] [place] [address] Performed By: #### 2 4323-8 #### [facility] CLIA [id number] [address] [place] [address] 80570 ALP [Catalytic activity/Vol] 610 U/L High 38-113 [facility] Comment on above: Order Comment: Speci men Type: BLOOD SPECIMEN Ordering Facility: [facility] Address: [address] [place] [address] Performed By: #### 2 4323-8 #### [facility] CLIA [id number] [address] [place] [address] ALT [Catalytic activity/Vol] 14 U/L Normal 10-54 [facility] Comment on above: Order Comment: Speci men Type: BLOOD SPECIMEN Ordering Facility: [facility] Address: [address] [place] [address] Performed By: #### 2 4323-8 #### [facility] CLIA [id number] [address] [place] [address] 56980 Anion gap [Moles/Vol] 11 mmol/L Normal 9-18 [facility] Comment on above: Order Comment: Speci men Type: BLOOD SPECIMEN Ordering Facility: [facility] Address: [address] [place] [address] Performed By: #### 2 4323-8 #### [facility] CLIA [id number] [address] [place] [address] 19425 AST [Catalytic activity/Vol] 19 U/L Normal 14-40 [facility] Comment on above: Order Comment: Speci men Type: BLOOD SPECIMEN Ordering Facility: [facility] Address: [address] [place] [address] Performed By: #### 2 4323-8 #### [facility] CLIA [id number] [address] [place] [address] 54949 Bilirubin [Mass/Vol] 0.6 mg/dL Normal 0.2-1.3 [facility] Comment on above: Order Comment: Speci men Type: BLOOD SPECIMEN Ordering Facility: [facility] Address: [address] [place] [address] Performed By: #### 2 4323-8 #### [facility] CLIA [id number] [address] [place] [address] 00231 Calcium [Mass/Vol] 9.9 mg/dL Normal 8.5-10.2 [facility] Comment on above: Order Comment: Speci men Type: BLOOD SPECIMEN Ordering Facility: [facility] Address: [address] [place] [address] Performed By: #### 2 4323-8 #### [facility] CLIA [id number] [address] [place] [address] Chloride [Moles/Vol] 96 mmol/L Low 97-105 [facility] Comment on above: Order Comment: Speci men Type: BLOOD SPECIMEN Ordering Facility: [facility] Address: [address] [place] [address] Performed By: #### 2 4323-8 #### [facility] CLIA [id number] [address] [place] [address] 90043 CO2 [Moles/Vol] 30 mmol/L Normal 22-30 [facility] Comment on above: Order Comment: Speci men Type: BLOOD SPECIMEN Ordering Facility: [facility] Address: [address] [place] [address] Performed By: #### 2 4323-8 #### [facility] CLIA [id number] [address] [place] [address] 82424 Creatinine [Mass/Vol] 1.05 mg/dL Normal 0.73-1.22 [facility] Comment on above: Order Comment: Speci men Type: BLOOD SPECIMEN Ordering Facility: [facility] Address: [address] [place] [address] Performed By: #### 2 4323-8 #### [facility] CLIA [id number] [address] [place] [address] 46953 Creatinine and Glomerular filtration rate.predicted panel (S/P/Bld) 83 mL/min/1.73m??? Normal >=60 [facility] Comment on above: Order Comment: Speci men Type: BLOOD SPECIMEN Ordering Facility: [facility] Address: [address] [place] [address] Result Comment: Daniela mated Glomerular Filtration Rate (eGFR) is calculated using the 2020 CKD-EPI creatinine equation. This equation utilizes serum creatinine, sex, and age as parameters. The creatinine assay has traceable calibration to isotope dilution-mass spectrometry. Refer to KDIGO guidelines for clinical interpretation. In patients with unstable renal function, e.g. those with acute kidney injury, the eGFR may not accurately reflect actual GFR. Performed By: #### 2 4323-8 #### [facility] CLIA [id number] [address] [place] [address] 78452 Glucose [Mass/Vol] 146 mg/dL High 74-99 [facility] Comment on above: Order Comment: Matt ware Type: BLOOD SPECIMEN Ordering Facility: [facility] Address: [address] [place] [address] Result Comment: The [place] Diabetes Association (ADA) provides guidance for cutoff values for fasting glucose and random glucose. The ADA defines fasting as no caloric intake for at least 8 hours. Fasting plasma glucose results between 100 to 125 mg/dL indicate increased risk for diabetes (prediabetes). Fasting plasma glucose results greater than or equal to 126 mg/dL meet the criteria for diagnosis of diabetes. In the absence of unequivocal hyperglycemia, results should be confirmed by repeat testing. In a patient with classic symptoms of hyperglycemia or hyperglycemic crisis, random plasma glucose results greater than or equal to 200 mg/dL meet the criteria for diagnosis of diabetes. Reference: Standards of Medical Care in Diabetes 2016, [place] [employer] Association. Diabetes Care. 2016.39(Suppl 1). Performed By: #### 2 4323-8 #### [facility] CLIA [id number] [address] [place] [address] 93632 Potassium [Moles/Vol] 3.2 mmol/L Low 3.7-5.1 [facility] Comment on above: Order Comment: Matt ware Type: BLOOD SPECIMEN Ordering Facility: [facility] Address: [address] [place] [address] Performed By: #### 2 4323-8 #### [facility] CLIA [id number] [address] [place] [address] 87026 Protein [Mass/Vol] 7.5 g/dL Normal 6.3-8.0 [facility] Comment on above: Order Comment: Matt ware Type: BLOOD SPECIMEN Ordering Facility: [facility] Address: [address] [place] [address] Performed By: #### 2 4323-8 #### [facility] CLIA [id number] [address] [place] [address] Sodium [Moles/Vol] 137 mmol/L Normal 136-144 [facility] Comment on above: Order Comment: Speci men Type: BLOOD SPECIMEN Ordering Facility: [facility] Address: [address] [place] [address] Performed By: #### 2 4323-8 #### [facility] CLIA [id number] [address] [place], [place] [address] Urea nitrogen [Mass/Vol] 11 mg/dL Normal 9-24 [facility] Comment on above: Order Comment: Speci men Type: BLOOD SPECIMEN Ordering Facility: [facility] Address: [address] [place] [address] Performed By: #### 2 4323-8 #### [facility] CLIA [id number] [address] [place], [place] [address] [facility] Prostate specific Ag [Mass/Vol] 30.50 ng/mL High <2.60 [facility] Comment on above: Order Comment: Speci men Type: BLOOD SPECIMEN Ordering Facility: [facility] Address: [address] [place] [address] Result Comment: Tota l PSA test methodology used is the Electrochemiluminescence Immunoassay by [employer]. Total PSA values by differing methodologies cannot be interchanged. For an individual patient, the significance of a PSA level should be interpreted in a broad clinical context, including age, race, family history, digital rectal exam, prostate size, results of prior testing (prostate biopsy, free PSA, PCA3), and use of 5-alpha reductase inhibitors. Considering the high incidence of asymptomatic cancer in the general population that may not pose an ultimate risk to a patient, the decision to recommend urological evaluation or prostate biopsy should be individualized after consideration of all these factors. REFERENCE: Delfino Hawk M.D., M.P.H., Stefan Kinsey M.D., Ph.D., Rudy Mercado M.D., Bernadine Oliver M.P.H., Patricia Juares Sc.D. Effect of Verification Bias on Screening for Prostate Cancer by Measurement of Prostatic Specific Antigen. N Engl J Med 2003,349:335-42. Performed By: #### 2 857-1 #### [facility] CLIA [id number] [address] [place] [id number] [facility] RELATED PEPTIDEon 2023 PTH RELATED PEPTIDE <2.0 Normal 0.0-2.3 [facility] Comment on above: Order Comment: Speci men Type: BLOOD SPECIMEN Ordering Facility: [facility] Address: [address] [place] [address] Result Comment: INTE RPRETIVE INFORMATION: Parathyroid Hormone-Related Peptide This test was developed and its performance characteristics determined by [facility]. It has not been cleared or approved by the US Food and Drug Administration. This test was performed in a CLIA certified laboratory and is intended for clinical purposes. Performed By: [facility] [address] [place] [id number] Person Investigator: Govind Solorzano MD, PhD CLIA Number: [id number] Performed By: #### 5 7021-8 #### [facility] CLIA [id number] [address] [place] [address] PTH-Intact SerPl-mCncon 04-20 Parathyrin.intact [Mass/Vol] 42 pg/mL Normal 15-65 [facility] Comment on above: Order Comment: Speci men Type: BLOOD SPECIMEN Ordering Facility: [facility] Address: [address] [place] [address] Performed By: #### 5 7021-8 #### [facility] CLIA [id number] [address] [place] [address] Glucose Glucometer (BldC) [M ass/Vol]Ordered By: Zach Stover on 05-12-2023 Glucose [Mass/Vol] 137 mg/dL [facility] Comment on above: Random Glucose Refer ence Range is dependent on time and content of last meal. Glucose of more than 200 mg/dL in a nonstressed, ambulatory subject supports the diagnosis of Diabetes Mellitus. Glucose Poct Glucometerson 0 05-12-2023 Glucose [Mass/Vol] 137 mg/dL Normal [facility] Comment on above: Result Comment: [facility] Glucose Reference Range is dependent on time and content of last meal. Glucose of more than 200 mg/dL in a nonstressed, ambulatory subject supports the diagnosis of Diabetes Mellitus. PERFORMED BY: [place] [address] PATHOLOGIST ANALOG IC DESIGN ENGINEER LETICIA ELIAS M.D. Performed By: #### G LULS #### Point of Care testing , [facility] Thyroxine (T4)on T4 [Mass/Vol] 7.6 ug/dL Normal 4.5-12.0 [facility] Comment on above: Result Comment: Perf ormed at: - [facility] [address] [place], [place] [id number] Courseware Developer: Bowen Loredo PhD, Phone: [phone] PERFORMED BY: [place] [address] PATHOLOGIST ANALOG IC DESIGN ENGINEER LETICIA ELIAS M.D. Performed By: #### L C T4 #### [facility] , No Panel InformationOrdered By: Zach Martínez on 05-12-2023 Free Thyroxine (T4) Direct 7.6 ug/dL 4.5-12.0 [facility] Comment on above: Performed at: [facility] [address] [id number] Director: Bowen Loredo PhD, Phone: [phone] PET tumor init tx strat sb-m ton 05-12-2023 PET tumor init tx strat sb-mt [facility] Main [address] [address] Nuclear Medicine Report Signed Patient: Jm Pat MR#: [id number] 63 : 1965 Acct:[id number] Age/Sex: 57 / M ADM Date: 05/12/23 Loc: Room: Type: [facility] Attending Dr: Zach Stover DO Copies to: DO Dominick Lopez Jr, DO Ordering Provider: Zach Stover DO Date of Service: 05/12/23 PET/PET tumor init tx strat sb-mt: Bone pain, hx of bladder cancer PET/CT FUSION IMAGING CLINICAL INFORMATION: Bone pain. History of bladder cancer in 2012. COMPARISON : Outside right shoulder MRI 05/05/2023. TECHNIQUE: Noncontrasted CT scan from the base of the skull to the upper thigh followed by PET imaging. Multiplanar PET/CT fusion images. Blood Glucose : 137 mg/dL The F-18 FDG 12mCi. FINDINGS: Neck: No abnormal activity. Chest:No abnormal activity. Abdomen/pelvis: No abnormal activity is seen within the abdomen. There appears to be abnormal activity involving the right aspect of the prostate gland, SUV max of. No definitive FDG avid lymph nodes are noted Soft tissue/bones: Scattered areas of activity are identified involving the humeri, ribs, spine, sacrum and bony pelvis, some of demonstrate sclerosis on the concurrent CT, SUV max of 2.6 CT findings: No pneumothorax. No pericardial or pleural effusions. No free air or free fluid. Colonic diverticulosis. PET/PET tumor init tx strat sb-mt IMPRESSION: Abnormal activity is seen involving the right aspect of the prostate gland suspicious for underlying malignancy. Correlation with PSA level is recommended. Scattered areas of activity are noted involving the humeri, ribs, spine, sacrum and bony pelvis demonstrates sclerosis on the concurrent CT. Given the prostate findings, metastatic disease is suspected. Impression dictated by: Dominick Babcock Jr., D.OKanwal05/12/2023 10:37 AM Dictation Location: [facility] Transcribed By: [facility] 05/12/23 1037 Dictated By: Dominick Babcock Jr, DO 05/12/23 1025 Signed By: 05/12/23 1037 Normal [facility] Thyroid Stimulating Hormoneo n 05-12-2023 TSH Qn 13.68 m[IU]/L High 0.45-5.33 [facility] Comment on above: Result Comment: PERF ORMED BY: [facility] [address] [place] [address] PATHOLOGIST ANALOG IC DESIGN ENGINEER LETICIA ELIAS M.D. Performed By: #### T SH3, T4T, T3T #### [facility] [address] [id number] [facility] Thyrotropin [Units/volume] i n Serum or PlasmaOrdered By: Zach Martínez on 05-12-2023 TSH Qn 13.68 m[IU]/L 0.45-5.33 [facility] Triiodothyronine (T3) Totalo n 05-12-2023 Triiodothyronine (T3) Total 1.23 ng/mL Normal 0.87-1.78 [facility] Comment on above: Performed By: #### T SH3, T4T, T3T #### [facility] [address] [id number] [facility] Triiodothyronine (T3) [Mass/ volume] in Serum or PlasmaOrdered By: Zach Martínez on 05-12-2023 T3 [Mass/Vol] 1.23 ng/mL 0.87-1.78 [facility] MR Shoulder - right WO contr shlely 05-06-2023 Greater than 3 cm anterior-posterior full-thickness tear of the rotator cuff repair. Retraction of the torn fibers to the glenoid. Marked supraspinatus muscle volume loss. Suspect subacromial decompression and long head of the biceps tenodesis without complication. Large joint effusion and synovitis and debris. 2 nonspecific lesions within the humerus. These are not present on the 2019 CT scan and not radiographically visible. Because of the multiplicity metastatic disease should be considered and recommend PET-CT scan to further evaluate if not already known and evaluated. [facility] RIS CONSOLIDATED EXAMINATION: MRI OF THE RIGHT SHOULDER WITHOUT CONTRAST 05/05/2023 2:04 pm TECHNIQUE: Multiplanar multisequence MRI of the right shoulder was performed without the administration of intravenous contrast. COMPARISON: Radiograph [address] scan 02 May 2018 HISTORY: ORDERING SYSTEM PROVIDED HISTORY: Humeral avulsion glenohumeral ligament lesion, right, initial encounter FINDINGS: ROTATOR CUFF: Greater than 3 cm anterior-posterior full-thickness tear of the rotator cuff repair. Retraction of the torn fibers to the glenoid. Moderate subscapularis tendinosis with increased thickness and signal. BICEPS TENDON/LABRUM: Long-head biceps tenodesis. The tendon is retracted into the distal bicipital groove. The glenoid labrum is intact to the extent that it is visualized. No paralabral cyst. AC JOINT: Suspect prior acromioplasty. Degeneration of the AC joint. Fluid in the subacromial subdeltoid bursa. GLENOHUMERAL JOINT: Joint effusion and synovitis and debris. BONE MARROW: The humeral head is high riding and abuts the undersurface of the acromion. There is a geographic lesion in the proximal humeral diaphysis measuring approximately 2.4 x 2.1 cm. It is dark on T1 and it is dark on T2 centrally within intermediate to slightly increased signal periphery. It is slightly heterogeneous on both sequences. There appears to be a similar lesion slightly more distal in the humerus. SOFT TISSUES: Marked volume loss of the supraspinatus and moderate volume loss of the infraspinatus and subscapularis muscles. [facility] Rudy Andino MD - 05/06/2023 EXAMINATION: MRI OF THE RIGHT SHOULDER WITHOUT CONTRAST 05/05/2023 2:04 pm TECHNIQUE: Multiplanar multisequence MRI of the right shoulder was performed without the administration of intravenous contrast. COMPARISON: Radiograph [address] scan 02 May 2018 HISTORY: ORDERING SYSTEM PROVIDED HISTORY: Humeral avulsion glenohumeral ligament lesion, right, initial encounter FINDINGS: ROTATOR CUFF: Greater than 3 cm anterior-posterior full-thickness tear of the rotator cuff repair. Retraction of the torn fibers to the glenoid. Moderate subscapularis tendinosis with increased thickness and signal. BICEPS TENDON/LABRUM: Long-head biceps tenodesis. The tendon is retracted into the distal bicipital groove. The glenoid labrum is intact to the extent that it is visualized. No paralabral cyst. AC JOINT: Suspect prior acromioplasty. Degeneration of the AC joint. Fluid in the subacromial subdeltoid bursa. GLENOHUMERAL JOINT: Joint effusion and synovitis and debris. BONE MARROW: The humeral head is high riding and abuts the undersurface of the acromion. There is a geographic lesion in the proximal humeral diaphysis measuring approximately 2.4 x 2.1 cm. It is dark on T1 and it is dark on T2 centrally within intermediate to slightly increased signal periphery. It is slightly heterogeneous on both sequences. There appears to be a similar lesion slightly more distal in the humerus. SOFT TISSUES: Marked volume loss of the supraspinatus and moderate volume loss of the infraspinatus and subscapularis muscles. IMPRESSION: Greater than 3 cm anterior-posterior full-thickness tear of the rotator cuff repair. Retraction of the torn fibers to the glenoid. Marked supraspinatus muscle volume loss. Suspect subacromial decompression and long head of the biceps tenodesis without complication. Large joint effusion and synovitis and debris. 2 nonspecific lesions within the humerus. These are not present on the 2019 CT scan and not radiographically visible. Because of the multiplicity metastatic disease should be considered and recommend PET-CT scan to further evaluate if not already known and evaluated. [employer] MR Shoulder - right WO contr astOrdered By: Rudy Mayers on 05-06-2023 [facility] [employer] Work Phone: MRI SHOULDER RIGHT WO CONTRA STon 05-06-2023 MRI SHOULDER RIGHT WO CONTRAST EXAMINATION: MRI OF THE RIGHT SHOULDER WITHOUT CONTRAST 05/05/2023 2:04 pm TECHNIQUE: Multiplanar multisequence MRI of the right shoulder was performed without the administration of intravenous contrast. COMPARISON: Radiograph [address] scan 02 May 2018 HISTORY: ORDERING SYSTEM PROVIDED HISTORY: Humeral avulsion glenohumeral ligament lesion, right, initial encounter FINDINGS: ROTATOR CUFF: Greater than 3 cm anterior-posterior full-thickness tear of the rotator cuff repair. Retraction of the torn fibers to the glenoid. Moderate subscapularis tendinosis with increased thickness and signal. BICEPS TENDON/LABRUM: Long-head biceps tenodesis. The tendon is retracted into the distal bicipital groove. The glenoid labrum is intact to the extent that it is visualized. No paralabral cyst. AC JOINT: Suspect prior acromioplasty. Degeneration of the AC joint. Fluid in the subacromial subdeltoid bursa. GLENOHUMERAL JOINT: Joint effusion and synovitis and debris. BONE MARROW: The humeral head is high riding and abuts the undersurface of the acromion. There is a geographic lesion in the proximal humeral diaphysis measuring approximately 2.4 x 2.1 cm. It is dark on T1 and it is dark on T2 centrally within intermediate to slightly increased signal periphery. It is slightly heterogeneous on both sequences. There appears to be a similar lesion slightly more distal in the humerus. SOFT TISSUES: Marked volume loss of the supraspinatus and moderate volume loss of the infraspinatus and subscapularis muscles. IMPRESSION: Greater than 3 cm anterior-posterior full-thickness tear of the rotator cuff repair. Retraction of the torn fibers to the glenoid. Marked supraspinatus muscle volume loss. Suspect subacromial decompression and long head of the biceps tenodesis without complication. Large joint effusion and synovitis and debris. 2 nonspecific lesions within the humerus. These are not present on the 2019 CT scan and not radiographically visible. Because of the multiplicity metastatic disease should be considered and recommend PET-CT scan to further evaluate if not already known and evaluated. Interpreted by: Rudy Mayers MD Signed by: Rudy Mayers MD 05/06/23 Final result Normal [facility] MR Shoulder - right WO contr shelly 05-05-2023 Radiology Study observation (narrative) [facility] XR SHOULDER RIGHT (MIN 2 VIE WS)on 04-28-2023 XR SHOULDER RIGHT (MIN 2 VIEWS) EXAMINATION: 4 XRAY VIEWS OF THE RIGHT SHOULDER 04/28/2023 2:36 pm COMPARISON: None. HISTORY: ORDERING SYSTEM PROVIDED HISTORY: pain TECHNOLOGIST PROVIDED HISTORY: pain FINDINGS: Glenohumeral joint is normally aligned. No evidence of acute fracture or dislocation. No abnormal periarticular calcifications. AC joint degenerative changes. Visualized lung is unremarkable. IMPRESSION: No acute abnormality. AC joint degenerative changes Interpreted by: Mayra Chaudhary MD Signed by: Mayra Chaudhary MD 04/28/23 Final result Normal [facility] XR Shoulder - right 2 Viewso n 04-28-2023 No acute abnormality . AC joint degenerative changes [facility] RIS CONSOLID[facility] EXAMINATION: 4 XRAY VIEWS OF THE RIGHT SHOULDER 04/28/2023 2:36 pm COMPARISON: None. HISTORY: ORDERING SYSTEM PROVIDED HISTORY: pain TECHNOLOGIST PROVIDED HISTORY: pain FINDINGS: Glenohumeral joint is normally aligned. No evidence of acute fracture or dislocation. No abnormal periarticular calcifications. AC joint degenerative changes. Visualized lung is unremarkable. [facility] Mayra Chaudhary MD - 04/28/2023 EXAMINATION: 4 XRAY VIEWS OF THE RIGHT SHOULDER 04/28/2023 2:36 pm COMPARISON: None. HISTORY: ORDERING SYSTEM PROVIDED HISTORY: pain TECHNOLOGIST PROVIDED HISTORY: pain FINDINGS: Glenohumeral joint is normally aligned. No evidence of acute fracture or dislocation. No abnormal periarticular calcifications. AC joint degenerative changes. Visualized lung is unremarkable. IMPRESSION: No acute abnormality. AC joint degenerative changes [facility] Radiology Study observation (narrative) [facility] XR Shoulder - right 2 ViewsO rdered By: Mayra Chaudhary on 04-28-2023 [facility] Work Phone: Thyroid Stimulating Hormoneo n 03-25-2023 TSH Qn 12.28 m[IU]/L High 0.45-5.33 [facility] Comment on above: Result Comment: PERF ORMED BY: [place] [address] PATHOLOGIST ANALOG IC DESIGN ENGINEER LETICIA ELIAS M.D. Performed By: #### T SH3, T4T, T3T #### [facility] [address] [place] [address] Thyrotropin [Units/volume] i n Serum or PlasmaOrdered By: Zach Martínez on 03-25-2023 TSH Qn 12.28 m[IU]/L 0.45-5.33 [facility] Thyroxine (T4) Totalon 03-25 T4 [Mass/Vol] 7.31 ug/dL Normal 5.39-11.82 [facility] Comment on above: Performed By: #### T SH3, T4T, T3T #### [facility] [address] Thyroxine (T4) [Mass/volume] in Serum or PlasmaOrdered By: Zach Martínez on 03-25-2023 T4 [Mass/Vol] 7.31 ug/dL 5.39-11.82 [facility] Triiodothyronine (T3) Totalo n 03-25-2023 Triiodothyronine (T3) Total 0.80 ng/mL Low 0.87-1.78 [facility] Comment on above: Performed By: #### T SH3, T4T, T3T #### [facility] [address] Triiodothyronine (T3) [Mass/ volume] in Serum or PlasmaOrdered By: Zach Martínez on 03-25-2023 T3 [Mass/Vol] 0.80 ng/mL 0.87-1.78 [facility] Thyroid Stimulating Hormoneo n 01-26-2023 TSH Qn 32.25 m[IU]/L High 0.45-5.33 [facility] Comment on above: Result Comment: PERF ORMED BY: [place] [address] PATHOLOGIST ANALOG IC DESIGN ENGINEER LETICIA ELIAS M.D. Performed By: #### T SH3, T4T, T3T #### [address] Thyrotropin [Units/volume] i n Serum or PlasmaOrdered By: Zach Martínez on 01-26-2023 TSH Qn 32.25 m[IU]/L 0.45-5.33 [facility] Thyroxine (T4) Totalon 01-26 T4 [Mass/Vol] 5.50 ug/dL Normal 5.39-11.82 [facility] Comment on above: Performed By: #### T SH3, T4T, T3T #### [facility] [address] [place] [address] Thyroxine (T4) [Mass/volume] in Serum or PlasmaOrdered By: Zach Martínez on 01-26-2023 T4 [Mass/Vol] 5.50 ug/dL 5.39-11.82 [facility] Triiodothyronine (T3) Totalo n 01-26-2023 Triiodothyronine (T3) Total 0.88 ng/mL Normal 0.87-1.78 [facility] Comment on above: Performed By: #### T SH3, T4T, T3T #### [facility] [address] [place] [address] [place] Triiodothyronine (T3) [Mass/ volume] in Serum or PlasmaOrdered By: Zach Martínez on 01-26-2023 T3 [Mass/Vol] 0.88 ng/mL 0.87-1.78 [facility] Calciumon 12-18-2022 Calcium [Mass/Vol] 9.1 mg/dL Normal 8.6-10.3 [facility] Comment on above: Order Comment: Irise nt Call to Dr. Martínez Result Comment: PERF ORMED BY: [facility] [address] [place] [place] [id number] PATHOLOGIST ANALOG IC DESIGN ENGINEER LETICIA ELIAS M.D. Performed By: #### T SH3, T4T, T3T #### [facility] [address] Calcium [Mass/volume] in Ser um or PlasmaOrdered By: Zach Martínez on 12-18-2022 Calcium [Mass/Vol] 9.1 mg/dL 8.6-10.3 [facility] Wan 12-18-2022 L ----- Specimen: [id number] Received: 12/22/22 Status: JOSHUA Rivas Num: [id number] Spec Type: Surgical Subm Dr: Zach Martínez DO Tissues: A THYROID - Lobe (RT SUBSTERNAL LOBE/ISTHMUS) B THYROID - Lobe (LT SUBSTERNAL LOBE) Procedures: /10, Gross/Micro L5/2 Age/ Patient Sex Location Account Attending Physician BiJm 57/M [place] [id number] Zach Martínez DO SPEC NUM: [id number] RECD: 12/22/22 STATUS: JOSHUA RIVAS NUM: [id number] HUNG: 12/18/22 [facility] DR: Zach Martínez DO ENTERED: 12/22/[address] [facility] [address]: MARY TYPE: Surgical DEPT: S ORDERED: HE/10, Gross/Micro L5/2 ORDERED: HE/10, Gross/Micro L5/2 Pathological Diagnosis A. 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 Received in formalin labeled with the patient's name, date of and right substernal thyroid lobe and isthmus is a 140 g, 11.0 x 6.5 x 4.3 cm nodular lead distorted, unoriented lobe of thyroid with a smooth to shaggy purple-red outer surface. The apparent isthmus resection margin is inked blue and the remainder of the specimen is inked black. The cut surface displays multiple well-circumscribed nodules with soft, vega-denise, focally hyperemic, focally cystic cut surfaces measuring up to 4.3 cm. Additionally there is a 0.8 cm in diameter denise-white nodule abutting the apparent isthmus resection margin. The residual Specimen: [id number] Received: 12/22/22 Status: JOSHUA Rivas Num: [id number] Spec Type: Surgical Subm Dr: Zach Martínez DO Tissues: A THYROID - Lobe (RT SUBSTERNAL LOBE/ISTHMUS) B THYROID - Lobe (LT SUBSTERNAL LOBE) Procedures: Sarah, Gross/Micro L5/2 Patient: Jm Pat [id number] (Continued) Specimen: [id number] Received: 12/22/22 (Continued) Gross Description (Continued) Signed (signature on file) Fermín Haley MD 12/24/22 1409 Specimen: [id number] Received: 12/22/22 Status: JOSHUA Rivas Num: [id number] Spec Type: Surgical Subm Dr: Zach Martínez DO Tissues: A THYROID - Lobe (RT SUBSTERNAL LOBE/ISTHMUS) B THYROID - Lobe (LT SUBSTERNAL LOBE) Procedures: , Gross/Micro L5/2 Patient: Jm Pat [id number] (Continued) Specimen: [id number] Received: 12/22/22 (Continued) Gross Description (Continued) thyroid parenchyma is firm, red-brown.. Cashier Wrapper sections are submitted in five cassettes labeled A1-A5. B. Received in formalin labeled with the patient's name, date of and left substernal thyroid is a 70 g, 8.2 x 5.5 x 3.5 cm unoriented lobe of thyroid with a smooth to shaggy, purple-brown outer surface. The apparent isthmus resection margin is inked blue and the remainder of the specimen is inked black. Sectioning reveals multiple well-circumscribed vega-denise to hemorrhagic and focally cystic nodules measuring up to 3.0 cm. The residual thyroid parenchyma is firm, red-brown.. Cashier Wrapper sections are submitted in five cassettes labeled B1-B5. Microscopic Description A. Five H E slides reviewed. The microscopic examination confirms the diagnosis. B. Five H E slides reviewed. The microscopic examination confirms the diagnosis. CPT Codes 15364 Specimen: [id number] Received: 12/22/22 Status: JOSHUA [facility] Num: [id number] Spec Type: Surgical Subm Dr: Zach Martínez DO Tissues: A THYROID - Lobe (RT SUBSTERNAL LOBE/ISTHMUS) B THYROID - Lobe (LT SUBSTERNAL LOBE) Procedures: HE/10, Gross/Micro L5/2 (more content not included)... Normal [facility] Parathyrin.intact [Mass/volu me] in Serum or PlasmaOrdered By: Zach Martínez on 12-18-2022 Parathyrin.intact [Mass/Vol] 25.2 pg/mL [facility] Parathyroid Hormone Intacton 12-18-2022 Parathyroid Hormone Intact 25.2 pg/mL Normal [facility] Comment on above: Order Comment: Comme nt Call to Dr. Martínez Result Comment: PERF ORMED BY: [place] [address] [place] [address] PATHOLOGIST ANALOG IC DESIGN ENGINEER LETICIA ELIAS M.D. Performed By: #### T SH3, T4T, T3T #### [facility] [address] Basic Metabolic Panelon 11-18 Anion gap [Moles/Vol] 11.9 mmol/L Normal 6.0-15.0 [facility] Comment on above: Performed By: #### P TH, TSH3, BMP #### [facility] [address] Calcium [Mass/Vol] 9.3 mg/dL Normal 8.6-10.3 [facility] Comment on above: Performed By: #### P TH, TSH3, BMP #### [address] Chloride [Moles/Vol] 101 mmol/L Normal 98-107 [facility] Comment on above: Performed By: #### P TH, TSH3, BMP #### [address] CO2 [Moles/Vol] 29.9 mmol/L Normal 21.0-31.0 [facility] Comment on above: Performed By: #### P TH, TSH3, BMP #### [address] Creatinine [Mass/Vol] 1.01 mg/dL Normal 0.70-1.30 [facility] Comment on above: Performed By: #### P TH, TSH3, BMP #### [place] [address] [place] GFR/1.73 sq M.predicted MDRD (S/P/Bld) [Vol rate/Area] mL/min/{1.73_m2} [facility] Comment on above: Performed By: #### P TH, TSH3, BMP #### [address] Glucose [Mass/Vol] 96 mg/dL Normal 70-100 [facility] Comment on above: Result Comment: [place] Glucose Reference Range is dependent on time and content of last meal. Glucose of more than 200 mg/dL in a nonstressed, ambulatory subject supports the diagnosis of Diabetes Mellitus. ADA recommended reference range Performed By: #### P TH, TSH3, BMP #### [facility] [address] Potassium [Moles/Vol] 3.8 mmol/L Normal 3.5-5.1 [facility] Comment on above: Performed By: #### P TH, TSH3, BMP #### [facility] [address] Sodium [Moles/Vol] 139 mmol/L Normal 136-145 [facility] Comment on above: Performed By: #### P TH, TSH3, BMP #### [facility] [address] Urea nitrogen [Mass/Vol] 11 mg/dL Normal 7-25 [facility] Comment on above: Performed By: #### P TH, TSH3, BMP #### [facility] [address] Basophils Auto (Bld) [#/Vol] Ordered By: Zach Martínez on 12-10-2022 Basophils (Bld) [#/Vol] 0.0 10*3/uL 0.0-0.2 [facility] Basophils/100 WBC Auto (Bld) Ordered By: Zach Martínez on 12-10-2022 Basophils/100 WBC (Bld) 0.5 % . [facility] Calcium [Mass/volume] in Ser um or PlasmaOrdered By: Zach Martínez on 12-10-2022 Calcium [Mass/Vol] 9.3 mg/dL 8.6-10.3 [facility] Carbon dioxide, total [Moles /volume] in Serum or PlasmaOrdered By: Zach Martínez on 12-10-2022 CO2 [Moles/Vol] 29.9 mmol/L 21.0-31.0 [facility] Chloride [Moles/volume] in S jane or PlasmaOrdered By: Zach Martínez on 12-10-2022 Chloride [Moles/Vol] 101 mmol/L 98-107 [facility] Complete Blood Count Auto Di ffon 12-10-2022 Basophils (Bld) [#/Vol] 0.0 10*3/uL Normal 0.0-0.2 [facility] Comment on above: Result Comment: PERF ORMED BY: [place] [address] PATHOLOGIST ANALOG IC DESIGN ENGINEER LETICIA ELIAS M.D. Performed By: #### T SH3, T4T, T3T #### [address] Basophils/100 WBC (Bld) 0.5 % Normal . [facility] Comment on above: Performed By: #### T SH3, T4T, T3T #### [address] Eosinophils (Bld) [#/Vol] 0.2 10*3/uL Normal 0.0-0.45 [facility] Comment on above: Performed By: #### T SH3, T4T, T3T #### [address] Eosinophils/100 WBC (Bld) 2.4 % Normal . [facility] Comment on above: Performed By: #### T SH3, T4T, T3T #### [address] Erythrocyte distribution width (RBC) [Ratio] 13.8 % Normal 12.0-14.8 [facility] Comment on above: Performed By: #### T SH3, T4T, T3T #### [address] Hematocrit (Bld) [Volume fraction] 49.0 % Normal 38.8-50.0 [facility] Comment on above: Performed By: #### T SH3, T4T, T3T #### [address] Hemoglobin (Bld) [Mass/Vol] 17.1 g/dL High 13.0-17.0 [facility] Comment on above: Performed By: #### T SH3, T4T, T3T #### [place] [address] Lymphocytes (Bld) [#/Vol] 1.9 10*3/uL Normal 1.00-4.8 [facility] Comment on above: Performed By: #### T SH3, T4T, T3T #### [facility] [address] [place] [address] Lymphocytes/100 WBC (Bld) 23.2 % Normal . [facility] Comment on above: Performed By: #### T SH3, T4T, T3T #### [address] MCH (RBC) [Entitic mass] 30.1 pg Normal 27.5-35.2 [facility] Comment on above: Performed By: #### T SH3, T4T, T3T #### [address] MCV (RBC) [Entitic vol] 86.3 fL Normal 83.5-101 [facility] Comment on above: Performed By: #### T SH3, T4T, T3T #### [facility] [address] [place] [address] Mean Corpuscular HGB Conc 34.8 g/dL Normal 32.5-35.6 [facility] Comment on above: Performed By: #### T SH3, T4T, T3T #### [address] Monocytes (Bld) [#/Vol] 0.8 10*3/uL Normal 0.0-0.8 [facility] Comment on above: Performed By: #### T SH3, T4T, T3T #### [facility] [address] [place] [address] [place] Monocytes/100 WBC (Bld) 10.2 % Normal . [facility] Comment on above: Performed By: #### T SH3, T4T, T3T #### [address] Neutrophils (Bld) [#/Vol] 5.1 10*3/uL Normal 1.8-7.7 [facility] Comment on above: Performed By: #### T SH3, T4T, T3T #### [facility] [address] [place] [address] Neutrophils/100 WBC (Bld) 63.7 % Normal . [facility] Comment on above: Performed By: #### T SH3, T4T, T3T #### [facility] [address] NRBC% 0.3 /100{WBC} Normal 0-0.5 [facility] Comment on above: Performed By: #### T SH3, T4T, T3T #### [facility] [address] Platelet mean volume (Bld) [Entitic vol] 8.6 fL Normal 6.6-10.1 [facility] Comment on above: Performed By: #### T SH3, T4T, T3T #### [address] Platelets (Bld) [#/Vol] 210 10*3/uL Normal 150-450 [facility] Comment on above: Performed By: #### T SH3, T4T, T3T #### [address] RBC (Bld) [#/Vol] 5.67 10*6/uL High 3.90-5.60 [facility] Comment on above: Performed By: #### T SH3, T4T, T3T #### [address] WBC (Bld) [#/Vol] 8.0 10*3/uL Normal 4.1-10.5 [facility] Comment on above: Performed By: #### T SH3, T4T, T3T #### [address] Creatinine [Mass/volume] in Serum or PlasmaOrdered By: Zach Martínez on 12-10-2022 Creatinine [Mass/Vol] 1.01 mg/dL 0.70-1.30 [facility] ECG 12 lead ECGon 12-10-2022 ECG 12 lead ECG [facility] [place] [address] Electrocardiograph Report Signed Patient: Jm Pat MR#: [id number] 63 : 1965 Acct:[id number] Age/Sex: 57 / M ADM Date: 12/10/22 Loc: Room: Type: [facility] CLI Attending Dr: Zach Martínez DO Ordering Provider: Zach Martínez DO Date of Service: 12/10/22 ECG/ECG 12 lead ECG: pst Copies to: Test Reason : Blood Pressure : / mmHG Vent. Rate : 070 BPM Atrial Rate : 070 BPM P-R Int : 170 ms QRS Dur : 100 ms QT Int : 390 ms P-R-T Axes : 063 023 043 degrees QTc Int : 421 ms Normal sinus rhythm Possible Anterior infarct (cited on or before 10-DEC-2022) Abnormal ECG When compared with ECG of 05-SEP-2009 06:20, No significant change was found Confirmed by LINDA JONES MD (Elisabeth) on 12/14/2022 6:41:47 PM Referred By: NOVA Electronically Signed By:LINDA JONES MD Transcribed By: NASRIN Signed By Linda Jones MD 0 12/14/22 1841 Normal [facility] Eosinophils Auto (Bld) [#/Vo l]Ordered By: Zach Martínez on 12-10-2022 Eosinophils (Bld) [#/Vol] 0.2 10*3/uL 0.0-0.45 [facility] Eosinophils/100 WBC Auto (Bl d)Ordered By: Zach Martínez on 12-10-2022 Eosinophils/100 WBC (Bld) 2.4 % . [facility] Erythrocyte distribution wid th Auto (RBC) [Ratio]Ordered By: Zach Martínez on 12-10-2022 Erythrocyte distribution width (RBC) [Ratio] 13.8 % 12.0-14.8 [facility] Glucose [Mass/volume] in Ser um or PlasmaOrdered By: Zach Martínez on 12-10-2022 Glucose [Mass/Vol] 96 mg/dL 70-100 [facility] Comment on above: ADA recommended refe rence rangeRandom Glucose Reference Range is dependent on time and content of last meal. Glucose of more than 200 mg/dL in a nonstressed, ambulatory subject supports the diagnosis of Diabetes Mellitus. Hematocrit Auto (Bld) [Volum e fraction]Ordered By: Zach Martínez on 12-10-2022 Hematocrit (Bld) [Volume fraction] 49.0 % 38.8-50.0 [facility] Hemoglobin [Mass/volume] in BloodOrdered By: Zach Martínez on 12-10-2022 Hemoglobin (Bld) [Mass/Vol] 17.1 g/dL 13.0-17.0 [facility] Leukocytes [#/volume] correc jamshid for nucleated erythrocytes in Blood by Automated counOrdered By: Zach Martínez on 12-10-2022 WBC corrected for nucl RBC Auto (Bld) [#/Vol] 8.0 10*3/uL 4.1-10.5 [facility] Lymphocytes Auto (Bld) [#/Vo l]Ordered By: Zach Martínez on 12-10-2022 Lymphocytes (Bld) [#/Vol] 1.9 10*3/uL 1.00-4.8 [facility] Lymphocytes/100 WBC Auto (Bl d)Ordered By: Zach Martínez on 12-10-2022 Lymphocytes/100 WBC (Bld) 23.2 % . [facility] MCH Auto (RBC) [Entitic mass ]Ordered By: Zach Martínez on 12-10-2022 MCH (RBC) [Entitic mass] 30.1 pg 27.5-35.2 [facility] MCHC Auto (RBC) [Mass/Vol]Or dered By: Zach Martínez on 12-10-2022 MCHC (RBC) [Mass/Vol] 34.8 g/dL 32.5-35.6 [facility] MCV Auto (RBC) [Entitic vol] Ordered By: Zach Martínez on 12-10-2022 MCV (RBC) [Entitic vol] 86.3 fL 83.5-101 [facility] Monocytes Auto (Bld) [#/Vol] Ordered By: Zach Martínez on 12-10-2022 Monocytes (Bld) [#/Vol] 0.8 10*3/uL 0.0-0.8 [facility] Monocytes/100 WBC Auto (Bld) Ordered By: Zach Martínez on 12-10-2022 Monocytes/100 WBC (Bld) 10.2 % . [facility] Neutrophils Auto (Bld) [#/Vo l]Ordered By: Zach Martínez on 12-10-2022 Neutrophils (Bld) [#/Vol] 5.1 10*3/uL 1.8-7.7 [facility] Neutrophils/100 WBC Auto (Bl d)Ordered By: Zach Martínez on 12-10-2022 Neutrophils/100 WBC (Bld) 63.7 % . [facility] No Panel InformationOrdered By: Zach Martínez on 12-10-2022 Estimated GFR (CKD-EPI) > 60.0 mL/Min [facility] Creatinine Clearance (Chem N/A [facility] Nucleated erythrocytes [Pres ence] in Blood by Automated countOrdered By: Zach Martínez on 12-10-2022 Nucleated RBC Auto Ql (Bld) 0.3 /100{WBC} 0-0.5 [facility] Parathyrin.intact [Mass/volu me] in Serum or PlasmaOrdered By: Zach Martínez on 12-10-2022 Parathyrin.intact [Mass/Vol] 50.3 pg/mL [facility] Parathyroid Hormone Intacton 12-10-2022 Parathyroid Hormone Intact 50.3 pg/mL Normal [facility] Comment on above: Result Comment: PERF ORMED BY: [place] [address] PATHOLOGIST ANALOG IC DESIGN ENGINEER LETICIA ELIAS M.D. Performed By: #### P TH, TSH3, BMP #### [address] Platelet mean volume Auto (B ld) [Entitic vol]Ordered By: Zach Martínez on 12-10-2022 Platelet mean volume (Bld) [Entitic vol] 8.6 fL 6.6-10.1 [facility] Platelets Auto (Bld) [#/Vol] Ordered By: Zach Martínez on 12-10-2022 Platelets (Bld) [#/Vol] 210 10*3/uL 150-450 [facility] Potassium [Moles/volume] in Serum or PlasmaOrdered By: Zach Martínez on 12-10-2022 Potassium [Moles/Vol] 3.8 mmol/L 3.5-5.1 [facility] RBC Auto (Bld) [#/Vol]Ordere d By: Zach Martínez on 12-10-2022 RBC (Bld) [#/Vol] 5.67 10*6/uL 3.90-5.60 [facility] Serum or plasma anion gap de terminationOrdered By: Zach Martínez on 12-10-2022 Anion gap [Moles/Vol] 11.9 mmol/L 6.0-15.0 [facility] Sodium [Moles/volume] in Ser um or PlasmaOrdered By: Zach Martínez on 12-10-2022 Sodium [Moles/Vol] 139 mmol/L 136-145 [facility] Thyroid Stimulating Hormoneo n 12-10-2022 TSH Qn 0.51 m[IU]/L Normal 0.45-5.33 [facility] Comment on above: Result Comment: PERF ORMED BY: [place] [address] PATHOLOGIST ANALOG IC DESIGN ENGINEER LETICIA ELIAS M.D. Performed By: #### P TH, TSH3, BMP #### [address] Thyrotropin [Units/volume] i n Serum or PlasmaOrdered By: Zach Martínez on 12-10-2022 TSH Qn 0.51 m[IU]/L 0.45-5.33 [facility] Urea nitrogen [Mass/volume] in Serum or PlasmaOrdered By: Zach Martínez on 12-10-2022 Urea nitrogen [Mass/Vol] 11 mg/dL 7-25 [facility] WBC Auto (Bld) [#/Vol]Ordere d By: Zach Martínez on 08-24-2023 WBC (Bld) [#/Vol] 8.0 10*3/uL 4.1-10.5 [facility] MRA HEAD WO CONon 08-04-2022 MRA HEAD WO CON EXAM: MR BRAIN AND M RA HEAD WO CON HISTORY: Acquired ptosis of eyelid of right eye COMPARISON: None. TECHNIQUE: Multiplanar multisequence MR imaging of the brain was performed without intravenous contrast. 3-D roer-dj-spotct noncontrast MRA imaging of the head was performed with maximum intensity projection reformats. FINDINGS: Calvarium/skull base: No focal marrow replacing lesion suggestive of neoplasm. Orbits: Grossly unremarkable. Paranasal sinuses: Imaged portions clear Brain: No restricted diffusion. Minimal T2 FLAIR signal hyperintensities are present involving the supratentorial and to a greater extent central pontine white matter and questionably middle cerebellar peduncles although this is likely at least partially artifactual in nature. No mass effect, hemorrhage, or hydrocephalus. Grossly normal flow-related signal in the dural venous sinuses. Anterior circulation: No evidence of aneurysm, significant stenosis, or occlusion. Vertebrobasilar system: No evidence of aneurysm, significant stenosis, or occlusion. IMPRESSION: 1. No acute intracranial process. 2. No significant stenosis, large vessel occlusion or aneurysm involving the intracranial arterial vasculature. 3. Minimal supratentorial and central pontine white matter changes which are nonspecific, typically attributed to prior trauma/inflammation/demye lination, or chronic ischemia associated with migraine/atherosclerosis. Electronically authenticated by: JAMEY FRAUSTO Date: 2022-08-04 09:31 Normal [facility] US VENOUS DOPPLER R Radha US VENOUS DOPPLER R ARM EXAMINATION: US VENOUS DOPPLER R ARM HISTORY: Disorder of soft tissue COMPARISON: No relevant comparison available. FINDINGS: REGION: Right upper extremity THROMBI: Occlusive thrombus within the proximal cephalic vein with partial occlusion of the mid and distal cephalic vein. COMPRESSIBILITY: Noncompressible segments of cephalic vein. Normal compressibility of deep veins. FLOW: Normal waveform and antegrade flow between 5 and 20 cm/s within deep system. OTHER: None. IMPRESSION: 1. No deep vein thrombus within the right upper extremity. 2. Thrombosis/superficial thrombophlebitis of cephalic vein (superficial vein). Electronically authenticated by: DAMASO VALDES Date: 2022-07-01 15:21 Normal [facility] US VENOUS DOPPLER R ARM [employer] Other CBC AUTO DIFFon 06-24-2022 BASO # 0.0 103/ul Normal 0.0-0.1 [facility] Comment on above: Performed By: #### C BC #### [facility] [address] [place] [address] [address] David Davison Basophils/100 WBC (Bld) 0.4 % Normal 0.2-2.0 [facility] Comment on above: Performed By: #### C BC #### [facility] [address] [place] [address] [address] David Davison EO # 0.3 103/ul Normal 0.0-0.7 [facility] Comment on above: Performed By: #### C BC #### [facility] [address] [place] [address] Dr. David Davison Eosinophils/100 WBC (Bld) 3.2 % Normal 0.9-7.0 [facility] Comment on above: Performed By: #### C BC #### [facility] [address] [place] [address] [address] aDvid Davison Erythrocyte distribution width (RBC) [Ratio] 12.4 % Normal 11.0-15.0 [facility] Comment on above: Performed By: #### C BC #### [facility] [address] [place] [address] [address] David Davison Hematocrit (Bld) [Volume fraction] 40.2 % Critically low 42.0-54.0 [facility] Comment on above: Performed By: #### C BC #### [facility] [address] [place] [address] [address] Daivd Davison Hemoglobin (Bld) [Mass/Vol] 14.0 g/dL Normal 14.0-18.0 [facility] Comment on above: Performed By: #### C BC #### [facility] [address] [place] [address] [address] David Davison IG # 0.04 10e3/ul Critically high 0.00-0.03 [facility] Comment on above: Performed By: #### C BC #### [facility] [address] [place] [address] Dr. David Davison IG % 0.5 % Normal 0.0-0.5 [facility] Comment on above: Performed By: #### C BC #### [facility] [address] [place] [address] Dr. David Davison LYMPH # 2.0 103/ul Normal 1.2-3.8 [facility] Comment on above: Performed By: #### C BC #### [facility] [address] [place] [address] Dr. David Davison Lymphocytes/100 WBC (Bld) 25.0 % Normal 20.5-60.0 [facility] Comment on above: Performed By: #### C BC #### [facility] [address] [place] [address] Dr. David Davison MANUAL DIFF REQ NO Normal [facility] Comment on above: Performed By: #### C BC #### [facility] [address] [place] [address] Dr. David Davison MCH (RBC) [Entitic mass] 28.7 pg Normal 25.9-34.0 [facility] Comment on above: Performed By: #### C BC #### [facility] [address] [place] [address] Dr. David Davison MCHC (RBC) [Mass/Vol] 34.8 g/dL Normal 29.9-35.2 [facility] Comment on above: Performed By: #### C BC #### [facility] [address] [place] [address] Dr. David Davison MCV (RBC) [Entitic vol] 82.4 fL Normal 80.0-94.0 [facility] Comment on above: Performed By: #### C BC #### [facility] [address] [place] [address] Dr. David Davison MONO # 1.1 103/ul Critically high 0.3-0.8 [facility] Comment on above: Performed By: #### C BC #### [facility] [address] [place] [address] Dr. David Davison Monocytes/100 WBC (Bld) 13.4 % Critically high 1.7-12.0 [facility] Comment on above: Performed By: #### C BC #### [facility] [address] [place] [address] Dr. David Davison NEUT # 4.6 103/ul Normal 1.4-6.5 [facility] Comment on above: Performed By: #### C BC #### [facility] [address] [place] [address] Dr. David Davison Neutrophils/100 WBC (Bld) 57.5 % Normal 43.0-75.0 [facility] Comment on above: Performed By: #### C BC #### [facility] [address] [place] [address] Dr. David Davison Platelet mean volume (Bld) [Entitic vol] 9.9 fL Normal 9.5-13.5 [facility] Comment on above: Performed By: #### C BC #### [facility] [address] [place] [address] Dr. David Davison PLT 209 103/ul Normal 150-450 [facility] Comment on above: Performed By: #### C BC #### [facility] [address] [place] [address] Dr. David Davison RBC 4.88 106/ul Normal 4.70-6.10 [facility] Comment on above: Performed By: #### C BC #### [facility] [address] [place] [address] Dr. David Davison WBC 8.1 103/ul Normal 4.0-11.0 [facility] Comment on above: Performed By: #### C BC #### [facility] [address] [place] [address] Dr. David Davison MAGNESIUMon 06-24-2022 Magnesium [Mass/Vol] 1.3 mg/dL Critically low 1.8-2.4 [facility] Comment on above: Performed By: #### M G, CMP #### [facility] [address] [place] [address] [address] David Davison PROF 14(COMP METB)on 023 Albumin [Mass/Vol] 3.0 g/dL Critically low 3.4-5.0 [facility] Comment on above: Performed By: #### M G, CMP #### [facility] [address] [place] [address] [address] David Davison Albumin/Globulin [Mass ratio] 0.9 {ratio} Normal [facility] Comment on above: Performed By: #### M G, CMP #### [facility] [address] [place] [address] Dr. David Davison ALP [Catalytic activity/Vol] 74 U/L Normal 46-116 [facility] Comment on above: Performed By: #### M G, CMP #### [facility] [address] [place] [address] Dr. David Davison ALT [Catalytic activity/Vol] 19 U/L Normal 16-63 [facility] Comment on above: Performed By: #### M G, CMP #### [facility] [address] [place] [address] Dr. David Davison Anion gap [Moles/Vol] 11.6 mmol/L Normal [facility] Comment on above: Performed By: #### M G, CMP #### [facility] [address] [place] [address] Dr. David Davison AST [Catalytic activity/Vol] 17 U/L Normal 15-37 [facility] Comment on above: Performed By: #### M G, CMP #### [facility] [address] [place] [address] Dr. David Davison Bilirubin [Mass/Vol] 0.4 mg/dL Normal 0.2-1.0 [facility] Comment on above: Performed By: #### M G, CMP #### [facility] [address] [place] [address] Dr. David Davison Calcium [Mass/Vol] 8.7 mg/dL Normal 8.5-10.1 [facility] Comment on above: Performed By: #### M G, CMP #### [facility] [address] [place] [address] [address] David Davison Chloride [Moles/Vol] 105 mmol/L Normal 98-107 [facility] Comment on above: Performed By: #### M G, CMP #### [facility] [address] [place] [address] [address] David Davison CO2 [Moles/Vol] 27.9 mmol/L Normal 21.0-32.0 [facility] Comment on above: Performed By: #### M G, CMP #### [facility] [address] [place] [address] Dr. David Davison Creatinine [Mass/Vol] 1.03 mg/dL Normal 0.70-1.30 [facility] Comment on above: Performed By: #### M G, CMP #### [facility] [address] [place] [address] Dr. David Davison EGFR-AF [place]IZ[place] >60 Normal >=60 [facility] Comment on above: Performed By: #### M G, CMP #### [facility] [address] [place] [address] Dr. David Davison EGFR-NON AF [place]IZEN [place] >60 Normal >=60 [facility] Comment on above: Performed By: #### M G, CMP #### [facility] [address] [place] [address] Dr. David Davison Globulin (S) [Mass/Vol] 3.3 g/dL Normal [facility] Comment on above: Performed By: #### M G, CMP #### [facility] [address] [place] [address] Dr. David Davison Glucose [Mass/Vol] 133 mg/dL Critically high 74-[address] [facility] Comment on above: Performed By: #### M G, CMP #### [facility] [address] [place] [address] Dr. David Davison Potassium [Moles/Vol] 3.5 mmol/L Normal 3.5-5.1 [facility] Comment on above: Performed By: #### M G, CMP #### [facility] [address] [place] [address] [address] David Davison Protein [Mass/Vol] 6.3 g/dL Critically low 6.4-8.2 [facility] Comment on above: Performed By: #### M G, CMP #### [facility] [address] [place] [address] [address] David Davison Sodium [Moles/Vol] 141 mmol/L Normal 136-145 [facility] Comment on above: Performed By: #### M G, CMP #### [facility] [address] [place] [address] [address] David Davison Urea nitrogen [Mass/Vol] 12.0 mg/dL Normal 7.0-18.0 [facility] Comment on above: Performed By: #### M G, CMP #### [facility] [address] [place] [address] Dr. David Davison Urea nitrogen/Creatinine [Mass ratio] 11.7 mg/mg Normal [facility] Comment on above: Performed By: #### M G, CMP #### [facility] [address] [address] [address] David Davison AMYLASEon 06-23-2022 Amylase [Catalytic activity/Vol] 32 U/L Normal 25-115 [facility] Comment on above: Performed By: #### C BC #### [facility] [address] [place] [address] Dr. David Davison C-Reactive Proteinon 023 C-Reactive Protein 1.7 mg/dL Critically high <=1.0 mg/dL [facility] [employer] Other C-Reactive Protein see note [employer] Other CBC AUTO DIFFon 06-23-2022 BASO # 0.0 103/ul Normal 0.0-0.1 [facility] Comment on above: Performed By: #### C BC #### [facility] [address] [place] [address] Dr. David Davison Basophils/100 WBC (Bld) 0.3 % Normal 0.2-2.0 [facility] Comment on above: Performed By: #### C BC #### [facility] [address] [address] [address] David Davison EO # 0.2 103/ul Normal 0.0-0.7 [facility] Comment on above: Performed By: #### C BC #### [facility] [address] [address] [address] David Davison Eosinophils/100 WBC (Bld) 1.5 % Normal 0.9-7.0 [facility] Comment on above: Performed By: #### C BC #### [facility] [address] [address] [address] David Davison Erythrocyte distribution width (RBC) [Ratio] 12.4 % Normal 11.0-15.0 [facility] Comment on above: Performed By: #### C BC #### [facility] [address] [place] [address] Dr. David Davison Hematocrit (Bld) [Volume fraction] 44.8 % Normal 42.0-54.0 [facility] Comment on above: Performed By: #### C BC #### [facility] [address] [place] [address] Dr. David Davison Hemoglobin (Bld) [Mass/Vol] 15.8 g/dL Normal 14.0-18.0 [facility] Comment on above: Performed By: #### C BC #### [facility] [address] [place] [address] Dr. David Davison IG # 0.08 10e3/ul Critically high 0.00-0.03 [facility] Comment on above: Performed By: #### C BC #### [facility] [address] [address] [address] David Davison IG % 0.7 % Critically high 0.0-0.5 [facility] Comment on above: Performed By: #### C BC #### [facility] [address] [place] [address] Dr. David Davison LYMPH # 1.5 103/ul Normal 1.2-3.8 [facility] Comment on above: Performed By: #### C BC #### [facility] [address] [place] [address] Dr. David Davisno Lymphocytes/100 WBC (Bld) 12.3 % Critically low 20.5-60.0 [facility] Comment on above: Performed By: #### C BC #### [facility] [address] [place] [address] Dr. David Davison MANUAL DIFF REQ NO Normal [facility] Comment on above: Performed By: #### C BC #### [facility] [address] [place] [address] Dr. David Davison MCH (RBC) [Entitic mass] 28.5 pg Normal 25.9-34.0 [facility] Comment on above: Performed By: #### C BC #### [facility] [address] [place] [address] Dr. David Davison MCHC (RBC) [Mass/Vol] 35.3 g/dL Critically high 29.9-35.2 [facility] Comment on above: Performed By: #### C BC #### [facility] [address] [place] [address] Dr. David Davison MCV (RBC) [Entitic vol] 80.9 fL Normal 80.0-94.0 [facility] Comment on above: Performed By: #### C BC #### [facility] [address] [place] [address] Dr. David Davison MONO # 1.1 103/ul Critically high 0.3-0.8 [facility] Comment on above: Performed By: #### C BC #### [facility] [address] [place] [address] Dr. David Davison Monocytes/100 WBC (Bld) 9.0 % Normal 1.7-12.0 [facility] Comment on above: Performed By: #### C BC #### [facility] [address] [place] [address] Dr. David Davison NEUT # 9.4 103/ul Critically high 1.4-6.5 [facility] Comment on above: Performed By: #### C BC #### [facility] [address] [place] [address] Dr. David Davison Neutrophils/100 WBC (Bld) 76.2 % Critically high 43.0-75.0 [facility] Comment on above: Performed By: #### C BC #### [facility] [address] [place] [address] Dr. David Davison Platelet mean volume (Bld) [Entitic vol] 9.5 fL Normal 9.5-13.5 [facility] Comment on above: Performed By: #### C BC #### [facility] [address] [place] [address] Dr. David Davison PLT 236 103/ul Normal 150-450 [facility] Comment on above: Performed By: #### C BC #### [facility] [address] [place] [address] Dr. David Davison RBC 5.54 106/ul Normal 4.70-6.10 [facility] Comment on above: Performed By: #### C BC #### [facility] [address] [place] [address] Dr. David Davison WBC 12.3 103/ul Critically high 4.0-11.0 [facility] Comment on above: Performed By: #### C BC #### [facility] [address] [place] [address] Dr. David Davison CRPon 06-23-2022 CRP 1.7 mg/dL Critically high <=1.0 [facility] Comment on above: Performed By: #### C RP #### [facility] [address] [place] [address] ABD/PELV W CONon 06-24-[address] ABD/PELV W CON EXAM: CT ABD/PELV W CON REASON FOR EXAM: Male, 57 years, Diverticulitis of intestine. TECHNIQUE: Computed tomography of the abdomen and pelvis is performed in the axial projection from the lung bases to the pubic symphysis. Sagittal and coronal reconstructed images are performed. Dose reduction techniques were achieved by using automated exposure control and/or adjustment of mA and/or KVP according to patient size and/or use of iterative reconstruction technique. A total of 100 mL Omnipaque 300 IV contrast was given. Study was performed with oral contrast. COMPARISON: 06/09/2022 FINDINGS: Lung bases: The lung bases are clear. There is no pleural effusion. The visualized portions of the heart are unremarkable. Liver: The liver is normal. Gallbladder: The gallbladder is normal. Spleen: The spleen is normal. There is a small splenule. Pancreas: The pancreas is normal. Adrenal glands: The adrenal glands are normal bilaterally. Right kidney: The kidney is normal in size. There is no renal calculus or hydronephrosis. Left kidney: The kidney is normal in size. There is no renal calculus or hydronephrosis. Stomach: The stomach is normal. Small bowel: The small bowel is normal. Large bowel: There is acute diverticulitis involving the sigmoid colon. No abscess. Multiple additional diverticula are seen throughout the left colon. Appendix: The appendix is visualized, and is normal. Aorta: The aorta is normal. IVC: The IVC is normal. Retroperitoneum: Normal retroperitoneum. Bladder: There is a small amount of air within the urinary bladder. Pelvic organs: Normal prostate gland. Abdominal wall: There is a small fat-containing umbilical hernia. Osseous structures: Degenerative changes are seen in the visualized spine. Postoperative changes are seen to both hips. IMPRESSION: Acute diverticulitis involving the sigmoid colon. No abscess or free air. There is a small amount of air within the urinary bladder. Please clinically correlate for history of recent catheterization. Additional nonacute findings, as described above. Electronically authenticated by: LENKA LAMBERT Date: 2022-06-23 18:20 Normal [facility] CULTURE BLOODon 06-23-2022 Microscopic examination of blood, culture Culture Observations: NO GROWTH AT 5 DAYS. Normal [facility] Comment on above: Performed By: #### C BC #### [facility] [address] [place], [place] [address] Dr. David Davison Microscopic examination of blood, culture Culture Observations: NO GROWTH AT 5 DAYS. Normal [facility] Comment on above: Performed By: #### C BC #### [facility] [address] [place], [place] [address] Dr. David Davison Covid-19 PCR ([facility])on SARS-CoV-2 (COVID-19) RNA SARAH+probe Ql (Unsp spec) Not detected Normal NOT DETECTED [facility] Comment on above: Result Comment: When diagnostic testing is negative, the possibility of a false negative should be considered in the context of a patient's recent exposures and the presence of clinical signs and symptoms consistent with SARS-CoV-2. This test is not yet approved or cleared by the [place] FDA. When there are no FDA-approved or cleared tests available, and other criteria are met, FDA can make tests available under an emergency access mechanism called an Emergency Use Authorization (EUA). The EUA for this test is supported by the [place] of Health and Human Service's declaration that circumstances exist to justify the emergency use of in vitro diagnostics for the detection and/or diagnosis of the virus that causes COVID-19. This EUA will remain in effect for the duration of the COVID-19 declaration justifying emergency of IVDs, unless it is terminated or revoked by the FDA (after which the test may no longer be used). Performed By: #### C VDTBH #### [facility] [address] [place] [address] Dr. David Davison ER URINE PROFILEon 3 Bilirubin Ql (U) Negative Normal NEGATIVE [facility] Comment on above: Performed By: #### C BC #### [facility] [address] [place] [address] Dr. David Davison Clarity (U) CLEAR Normal CLEAR [facility] Comment on above: Performed By: #### C BC #### [facility] [address] [place] [address] Dr. David Davison Color (U) YELLOW Normal YELLOW [facility] Comment on above: Performed By: #### C BC #### [facility] [address] [place] [address] Dr. David Davison ERUJOJO A micrscopic examina tion will be performed if indicated. Normal [facility] Comment on above: Performed By: #### C BC #### [facility] [address] [place] [address] Dr. David Davison Glucose Ql (U) Negative Normal NEGATIVE [facility] Comment on above: Performed By: #### C BC #### [facility] [address] [place] [address] Dr. David Davison Hemoglobin Ql (U) Negative Normal NEGATIVE [facility] Comment on above: Performed By: #### C BC #### [facility] [address] [place] [address] Dr. David Davison Ketones Ql (U) Negative Normal NEGATIVE [facility] Comment on above: Performed By: #### C BC #### [facility] [address] [place] [address] Dr. David Davison LEUKOCYTES Negative Normal NEGATIVE [facility] Comment on above: Performed By: #### C BC #### [facility] [address] [place] [address] Dr. David Davison Nitrite Ql (U) Negative Normal NEGATIVE [facility] Comment on above: Performed By: #### C BC #### [facility] [address] [place] [address] Dr. David Davison pH (U) 7.0 [pH] Normal 5-9 [facility] Comment on above: Performed By: #### C BC #### [facility] [address] [place] [address] Dr. David Davison SPEC GRAVITY 1.010 Normal 1.005-<=1. 025 [facility] Comment on above: Performed By: #### C BC #### [facility] [address] [place] [address] Dr. David Davison UA PROTEIN Negative Normal NEGATIVE/ TRACE [facility] Comment on above: Performed By: #### C BC #### [facility] [address] [place] [address] Dr. David Davison UR MICRO IND NOT INDICATED Normal [facility] Comment on above: Performed By: #### C BC #### [facility] [address] [place] [address] Dr. David Davison Urobilinogen Qn (U) 4 {Marianne'U}/dL Abnormal 0.2 - 1.0 [facility] Comment on above: Performed By: #### C BC #### [facility] [address] [place] [address] Dr. David Davison LACTATE/LACTIC ACIDon 2022 Lactate [Moles/Vol] 1.2 mmol/L Normal 0.4-1.9 [facility] Comment on above: Performed By: #### P SASC #### [facility] [address] [place] [address] Dr. David Davison LIPASEon 06-23-2022 Lipase [Catalytic activity/Vol] 243.0 U/L Normal 73.0-393.0 [facility] Comment on above: Performed By: #### C BC #### [facility] [address] [place] [address] Dr. David Davison PROF 14(COMP METB)on 023 Albumin [Mass/Vol] 3.7 g/dL Normal 3.4-5.0 [facility] Comment on above: Performed By: #### C BC #### [facility] [address] [place] [address] Dr. David Davison Albumin/Globulin [Mass ratio] 0.9 {ratio} Normal [facility] Comment on above: Performed By: #### C BC #### [facility] [address] [place] [address] Dr. David Davison ALP [Catalytic activity/Vol] 93 U/L Normal 46-116 [facility] Comment on above: Performed By: #### C BC #### [facility] [address] [place] [address] Dr. David Davison ALT [Catalytic activity/Vol] 21 U/L Normal 16-63 [facility] Comment on above: Performed By: #### C BC #### [facility] [address] [place] [address] Dr. David Davison Anion gap [Moles/Vol] 12.2 mmol/L Normal [facility] Comment on above: Performed By: #### C BC #### [facility] [address] [place] [address] Dr. David Davison AST [Catalytic activity/Vol] 19 U/L Normal 15-37 [facility] Comment on above: Performed By: #### C BC #### [facility] [address] [address] [address] David Davison Bilirubin [Mass/Vol] 0.5 mg/dL Normal 0.2-1.0 [facility] Comment on above: Performed By: #### C BC #### [facility] [address] [address] [address] David Davison Calcium [Mass/Vol] 9.5 mg/dL Normal 8.5-10.1 [facility] Comment on above: Performed By: #### C BC #### [facility] [address] [address] [address] David Davison Chloride [Moles/Vol] 103 mmol/L Normal 98-107 [facility] Comment on above: Performed By: #### C BC #### [facility] [address] [place] [address] Dr. David Davison CO2 [Moles/Vol] 29.2 mmol/L Normal 21.0-32.0 [facility] Comment on above: Performed By: #### C BC #### [facility] [address] [place] [address] Dr. David Davison Creatinine [Mass/Vol] 1.12 mg/dL Normal 0.70-1.30 [facility] Comment on above: Performed By: #### C BC #### [facility] [address] [place] [address] Dr. David Davison EGFR-AF [place]IZ[place] >60 Normal >=60 [facility] Comment on above: Performed By: #### C BC #### [facility] [address] [place] [address] Dr. David Davison EGFR-NON AF [place]IZ[place] >60 Normal >=60 [facility] Comment on above: Performed By: #### C BC #### [facility] [address] [place] [address] Dr. David Davison Globulin (S) [Mass/Vol] 4.1 g/dL Normal [facility] Comment on above: Performed By: #### C BC #### [facility] [address] [address] [address] David Davison Glucose [Mass/Vol] 119 mg/dL Critically high 74-[address] [facility] Comment on above: Performed By: #### C BC #### [facility] [address] [address] [address] David Davison Potassium [Moles/Vol] 3.4 mmol/L Critically low 3.5-5.1 [facility] Comment on above: Performed By: #### C BC #### [facility] [address] [address] [address] David Davison Protein [Mass/Vol] 7.8 g/dL Normal 6.4-8.2 [facility] Comment on above: Performed By: #### C BC #### [facility] [address] [address] [address] David Davison Sodium [Moles/Vol] 141 mmol/L Normal 136-145 [facility] Comment on above: Performed By: #### C BC #### [facility] [address] [address] [address] David Davison Urea nitrogen [Mass/Vol] 12.0 mg/dL Normal 7.0-18.0 [facility] Comment on above: Performed By: #### C BC #### [facility] [address] [address] [address] David Davison Urea nitrogen/Creatinine [Mass ratio] 10.7 mg/mg Normal [facility] Comment on above: Performed By: #### C BC #### [facility] [address] [place] [address] ABD/PELV W CONon 06-09-[address] ABD/PELV W CON INDICATION: Diverticulitis of intestine LLQ pain radiating to left testicle x2 weeks EXAMINATION: CT ABDOMEN AND PELVIS WITH CONTRAST TECHNIQUE: Helically acquired images were obtained of the abdomen and pelvis following intravenous administration of iodinated contrast. A radiation dose optimization technique was used for this scan. ENTERIC CONTRAST: None. COMPARISON: 03/21/2021 FINDINGS: LOWER CHEST: The visualized portion of the left lung base is clear. A calcified right middle lobe granuloma is unchanged. The heart size is within normal limits. A pericardial effusion is not identified. LIVER: No hepatic mass or lesion is identified. GALLBLADDER AND BILIARY TREE: No gallstones are identified. The gallbladder does not appear distended. No gallbladder wall thickening is identified. There is no visible pericholecystic fluid. No intra- or extrahepatic biliary ductal dilation is identified. STOMACH: Unremarkable. PANCREAS: A pancreatic mass or lesion is not identified. The pancreatic duct does not appear dilated. SPLEEN: A splenic lesion is not identified. ADRENAL GLANDS: The adrenal glands appear normal. KIDNEYS AND URETERS: The right kidney appears normal. There is a roughly 5 mm upper pole left renal cyst, unchanged since the prior. The ureters are unremarkable in appearance. PERITONEUM: No free intra-abdominal air is identified. No free pelvic fluid is detected. BOWEL: No bowel distension is observed. There are numerous diverticula involving the descending and sigmoid colon. There is moderate stranding of fat planes adjacent to the sigmoid colon. A microperforation is not identified. An abscess is not identified. LYMPH NODES: Scattered small retroperitoneal lymph nodes are unchanged. VESSELS: An aneurysm is not identified. No calcifications are observed within the abdominal aorta. URINARY BLADDER: Unremarkable. ABDOMINAL WALL: The neck of a fat-containing umbilical hernia measures approximately 1.7 cm in diameter, without significant interval change since the previous. APPENDIX: The appendix appears normal. MUSCULOSKELETAL: Bilateral hip arthroplasties result in heavy beam hardening artifact through the pelvis. An acute or aggressive osseous process is not identified. IMPRESSION: 1. Imaging findings most consistent with moderate diverticulitis involving the sigmoid colon colon. After acute symptoms have resolved, a follow-up colonoscopy is suggested in order to exclude the possibility of underlying colon cancer. 2. Advanced diverticulosis involving the descending and sigmoid colon. 3. Moderate size fat-containing umbilical hernia. Electronically authenticated by: MAYRA STEIN Date: 2022-06-09 14:41 Normal [facility] CT ABD/PELV W CON [facility] [employer] Other US KIDNEYS BLADDERon 022 US KIDNEYS BLADDER EXAMINATION: US KIDN EYS BLADDER HISTORY: Acute renal failure syndrome COMPARISON: No relevant comparison available. TECHNIQUE: Ultrasound examination was performed of the bladder. FINDINGS: Right Kidney: Normal in size, contour and cortical echotexture. The cortex measures 1.5 cm. No solid cortical mass or hydronephrosis Height: 5.3 cm Length: 12.9 cm Width: 4.6 cm Left Kidney: Normal in size, contour and cortical echotexture. The cortex measures 1.7 cm. No solid cortical mass or hydronephrosis Height: 6.5 cm Length: 12.9 cm Width: 5.4 cm The urinary bladder is normal in appearance. No wall thickening or mass. Prevoid volume 244. Post void volume 14.8 mL Ureteral jets: Visualized bilaterally IMPRESSION: Normal exam Electronically authenticated by: BERNARDO DANGELO Date: 2021-08-30 08:15 Normal [facility] PROF CHEM 8 (BAS METB)on Anion gap [Moles/Vol] 11.2 mmol/L Normal [facility] Comment on above: Performed By: #### B MP #### [facility] [address] [place] [address] Dr. David Davison Calcium [Mass/Vol] 9.3 mg/dL Normal 8.5-10.1 [facility] Comment on above: Performed By: #### B MP #### [facility] [address] [place] [address] Dr. David Davison Chloride [Moles/Vol] 96 mmol/L Critically low 98-107 [facility] Comment on above: Performed By: #### B MP #### [facility] [address] [place] [address] Dr. David Davison CO2 [Moles/Vol] 30.5 mmol/L Normal 21.0-32.0 [facility] Comment on above: Performed By: #### B MP #### [facility] [address] [place] [address] Dr. David Davison Creatinine [Mass/Vol] 1.39 mg/dL Critically high 0.70-1.30 [facility] Comment on above: Performed By: #### B MP #### [facility] [address] [place] [address] Dr. David Davison EGFR-AF [place] >60 Normal >=60 [facility] Comment on above: Performed By: #### B MP #### [facility] [address] [address] [address] David Davison EGFR-NON AF [place] 53 mL/min/1.73m2 Critically low >=60 [facility] Comment on above: Performed By: #### B MP #### [facility] [address] [place] [address] [address] David Davison Glucose [Mass/Vol] 93 mg/dL Normal 74-106 [facility] Comment on above: Performed By: #### B MP #### [facility] [address] [address] [address] David Davison Potassium [Moles/Vol] 3.7 mmol/L Normal 3.5-5.1 [facility] Comment on above: Performed By: #### B MP #### [facility] [address] [address] [address] David Davison Sodium [Moles/Vol] 134 mmol/L Critically low 136-145 [facility] Comment on above: Performed By: #### B MP #### [facility] [address] [address] [address] David Davison Urea nitrogen [Mass/Vol] 16.0 mg/dL Normal 7.0-18.0 [facility] Comment on above: Performed By: #### B MP #### [facility] [address] [address] [address] David Davison Urea nitrogen/Creatinine [Mass ratio] 11.5 mg/mg Normal [facility] Comment on above: Performed By: #### B MP #### [facility] [address] [address] [address] David Davison UA RANDOM W/MICROSCOPICon BACTERIA NONE SEEN Normal NONE SEEN [facility] Comment on above: Performed By: #### U AMIC #### [facility] [address] [address] [address] David Davison Bilirubin Ql (U) Negative Normal NEGATIVE [facility] Comment on above: Performed By: #### U AMIC #### [facility] [address] [address] [address] David Davison CAST NONE SEEN Normal NONE SEEN [facility] Comment on above: Performed By: #### U AMIC #### [facility] [address] [address] [address] David Davison Clarity (U) CLEAR Normal CLEAR [facility] Comment on above: Performed By: #### U AMIC #### [facility] [address] [address] [address] David Davison Color (U) LT. YELLOW Normal YELLOW [facility] Comment on above: Performed By: #### U AMIC #### [facility] [address] [place] [address] Dr. Daivd Davison Crystals LM Nom (Urine sed) NONE SEEN Normal NONE SEEN [facility] Comment on above: Performed By: #### U AMIC #### [facility] [address] [address] [address] David Davison Epithelial cells LM Ql (Urine sed) NONE SEEN Normal NONE SEEN /RARE [facility] Comment on above: Performed By: #### U AMIC #### [facility] [address] [address] [address] David Davison Glucose Ql (U) Negative Normal NEGATIVE [facility] Comment on above: Performed By: #### U AMIC #### [facility] [address] [address] [address] David Davison Hemoglobin Ql (U) Negative Normal NEGATIVE [facility] Comment on above: Performed By: #### U AMIC #### [facility] [address] [address] [address] David Davison Ketones Ql (U) Negative Normal NEGATIVE [facility] Comment on above: Performed By: #### U AMIC #### [facility] [address] [place] [address] Dr. David Davison LEUKOCYTES Negative Normal NEGATIVE [facility] Comment on above: Performed By: #### U AMIC #### [facility] [address] [address] [address] David Davison MUCOUS NONE SEEN Normal NONE SEEN [facility] Comment on above: Performed By: #### U AMIC #### [facility] [address] [address] [address] David Davison Nitrite Ql (U) Negative Normal NEGATIVE [facility] Comment on above: Performed By: #### U AMIC #### [facility] [address] [place] [address] Dr. David Davison pH (U) 6.5 [pH] Normal 5-9 [facility] Comment on above: Performed By: #### U AMIC #### [facility] [address] [place] [address] Dr. David Davison RBC NONE SEEN Abnormal 0-2 [facility] Comment on above: Performed By: #### U AMIC #### [facility] [address] [place] [address] Dr. David Davison SPEC GRAVITY 1.010 Normal 1.005-<=1. 025 [facility] Comment on above: Performed By: #### U AMIC #### [facility] [address] [place] [address] Dr. David Davison UA PROTEIN Negative Normal NEGATIVE/ TRACE [facility] Comment on above: Performed By: #### U AMIC #### [facility] [address] [place] [address] Dr. David Davison Urobilinogen Qn (U) 1.0 {Marianne'U}/dL Normal 0.2 - 1. 0 [facility] Comment on above: Performed By: #### U AMIC #### [facility] [address] [place] [address] Dr. David Davison WBC NONE SEEN Normal NONE SEEN [facility] Comment on above: Performed By: #### U AMIC #### [facility] [address] [place] [address] Dr. David Davison URINE T PROTEIN CREAT RATIOo n 08-29-2021 UR PROT CREAT RAT 0.08 Normal [facility] Comment on above: Performed By: #### U RTPCR #### [facility] [address] [address] [address] David Davison UR TOTAL PROTEIN <6.0 Normal <=12.0 [facility] Comment on above: Performed By: #### U RTPCR #### [facility] [address] [address] [address] David Davison URINE CREAT 76.43 mg/dL Normal 20.00-300. 00 [facility] Comment on above: Performed By: #### U RTPCR #### [facility] [address] [address] [address] David Davison Vital Signs Date Time Vital Sign Value Performing Clinician Facility 07-10-2023 11:29-0400 Body temperature 98 [degF] DO Zach Ball Work Phone: [facility] 07-10-2023 11:29-0400 Diastolic blood pressure 71 mm[Hg] DO Zach Ball Work Phone: [facility] 07-10-2023 11:29-0400 Heart rate 100 /min DO Zach Ball Work Phone: [facility] 07-10-2023 11:29-0400 Respiratory rate 16 /min DO Zach Ball Work Phone: [facility] 07-10-2023 11:29-0400 SaO2% (BldA) [Mass fraction] 96 % DO Zach Ball Work Phone: [facility] 07-10-2023 11:29-0400 Systolic blood pressure 123 mm[Hg] DO Zach Ball Work Phone: [facility] 07-10-2023 05:41-0400 Body weight 115 kg DO Zach Ball Work Phone: [facility] 07-10-2023 03:31-0400 Body height 180.34 cm DO Zach Ball Work Phone: [facility] 07-09-2023 18:08-0400 Inhaled oxygen flow rate 8 L/min DO Zach Ball Work Phone: [facility] 07-09-2023 17:22-0400 Body mass index (BMI) [Ratio] 35.4 kg/m2 DO Zach Stover Work Phone: [facility] 07-08-2023 15:51-0400 Blood Pressure Location Bonifacio MITCHELL [facility] 07-08-2023 15:51-0400 Diastolic blood pressure 92 mm[Hg] Bonifacio MITCHELL [facility] 07-08-2023 15:51-0400 Heart rate 70 /min Bonifacio MITCHELL [facility] 07-08-2023 15:51-0400 Systolic blood pressure 134 mm[Hg] Bonifacio MITCHELL [facility] 06-07-2023 13:31-0500 Body height 180.3 cm Rene Cast MD Work Phone: [facility] 06-07-2023 13:31-0500 Body temperature 97 [degF] Rene aCst MD Work Phone: [facility] 06-07-2023 13:31-0500 Body weight 122.1 kg Rene Cast MD Work Phone: [facility] 06-07-2023 13:31-0500 Diastolic blood pressure 81 mm[Hg] Rene Cast MD Work Phone: [facility] 06-07-2023 13:31-0500 Heart rate 77 /min Rene Cast MD Work Phone: [facility] 06-07-2023 13:31-0500 Respiratory rate 16 /min Rene Cast MD Work Phone: [facility] 06-07-2023 13:31-0500 SaO2% (BldA) [Mass fraction] 98 % Rene Cast MD Work Phone: [facility] 06-07-2023 13:31-0500 Systolic blood pressure 124 mm[Hg] Rene Cast MD Work Phone: [facility] 05-12-2023 15:30-0500 Body height 177.8 cm Zach Ball Other [facility] 05-12-2023 15:30-0500 Body mass index (BMI) [Ratio] 40.06 kg/m2 Zach Ball Other [facility] [employer] Other 05-12-2023 15:30-0500 Body weight 126.65 kg Zach Ball Other [facility] [employer] Other 05-12-2023 15:30-0500 Body weight 126.64 kg DO Zach Ball Work Phone: [facility] 05-12-2023 15:30-0500 Diastolic blood pressure 83 mm[Hg] Zach Ball Other [facility] 05-12-2023 15:30-0500 Respiratory rate 12 /min Zach Ball Other [facility] [employer] Other 05-12-2023 15:30-0500 Systolic blood pressure 145 mm[Hg] Zach Ball Other [facility] 04-28-2023 14:22-0500 Body temperature 98.1 [degF] Cain Fitzgerald MD Work Phone: [employer] 04-28-2023 14:22-0500 Diastolic blood pressure 84 mm[Hg] Cain Fitzgerald MD Work Phone: [employer] 04-28-2023 14:22-0500 Heart rate 83 /min Cain Fitzgerald MD Work Phone: [employer] 04-28-2023 14:22-0500 Respiratory rate 18 /min Cain Fitzgerald MD Work Phone: [employer] 04-28-2023 14:22-0500 SaO2% (BldA) [Mass fraction] 96 % Cain Fitzgerald MD Work Phone: [facility] [employer] 04-28-2023 14:22-0500 Systolic blood pressure 147 mm[Hg] Cain Fitzgerald MD Work Phone: [facility] 01-14-2023 10:00-0400 Body height 177.8 cm Zach Ball Other [employer] Other 01-14-2023 10:00-0400 Body mass index (BMI) [Ratio] 39.91 kg/m2 Zach Ball Other [employer] Other 01-14-2023 10:00-0400 Body weight 126.19 kg Zach Ball Other [employer] Other 01-14-2023 10:00-0400 Diastolic blood pressure 80 mm[Hg] Zach Ball Other [employer] Other 01-14-2023 10:00-0400 Respiratory rate 12 /min Zach Ball Other [employer] Other 01-14-2023 10:00-0400 Systolic blood pressure 130 mm[Hg] Zach Ball Other [employer] Other 12-18-2022 17:42-0400 Diastolic blood pressure 90 mm[Hg] DO Zach Ball Work Phone: [facility] 12-18-2022 17:42-0400 Heart rate 84 /min DO Zach Ball Work Phone: [facility] 12-18-2022 17:42-0400 Respiratory rate 16 /min DO Zach Ball Work Phone: [facility] 12-18-2022 17:42-0400 SaO2% (BldA) [Mass fraction] 95 % DO Zach Ball Work Phone: [facility] 12-18-2022 17:42-0400 Systolic blood pressure 144 mm[Hg] DO Zach Ball Work Phone: [facility] 12-18-2022 16:35-0400 Body temperature 98 [degF] DO Zach Ball Work Phone: [facility] 12-18-2022 14:18-0400 Body height 182.88 cm DO Zach Ball Work Phone: [facility] 12-18-2022 14:18-0400 Body mass index (BMI) [Ratio] 37.7 kg/m2 DO Zach Ball Work Phone: [facility] 12-18-2022 14:18-0400 Body weight 126.1 kg DO Zach Ball Work Phone: [facility] 12-16-2022 09:15-0400 Body height 177.8 cm Zach Ball Other [facility] [employer] Other 12-16-2022 09:15-0400 Body mass index (BMI) [Ratio] 40.4 kg/m2 Zach Ball Other [employer] Other 12-16-2022 09:15-0400 Body weight 127.73 kg Zach Ball Other [employer] Other 12-16-2022 09:15-0400 Diastolic blood pressure 90 mm[Hg] Zach Ball Other [employer] Other 12-16-2022 09:15-0400 Respiratory rate 12 /min Zach Ball Other [employer] Other 12-16-2022 09:15-0400 Systolic blood pressure 156 mm[Hg] Zach Ball Other [employer] Other 10-08-2022 09:30-0400 Body height 177.8 cm Zach Ball Other [employer] Other 10-08-2022 09:30-0400 Body mass index (BMI) [Ratio] 40.4 kg/m2 Zach Ball Other [employer] Other 10-08-2022 09:30-0400 Body weight 127.73 kg Zach Ball Other [employer] Other 10-08-2022 09:30-0400 Diastolic blood pressure 85 mm[Hg] Zach Ball Other [employer] Other 10-08-2022 09:30-0400 Respiratory rate 12 /min Zach Ball Other [employer] Other 10-08-2022 09:30-0400 Systolic blood pressure 135 mm[Hg] Zach Ball Other [employer] Other 08-12-2022 15:30-0400 Body height 177.8 cm Zach Ball Other [employer] Other 08-12-2022 15:30-0400 Body mass index (BMI) [Ratio] 40.95 kg/m2 Zach Ball Other [employer] Other 08-12-2022 15:30-0400 Body weight 129.46 kg Zach Ball Other [employer] Other 08-12-2022 15:30-0400 Diastolic blood pressure 80 mm[Hg] Zach Ball Other [employer] Other 08-12-2022 15:30-0400 Respiratory rate 12 /min Zach Ball Other [employer] Other 08-12-2022 15:30-0400 Systolic blood pressure 132 mm[Hg] Zach Ball Other [employer] Other 07-08-2022 11:00-0400 Body height 177.8 cm Zach Ball Other [employer] Other 07-08-2022 11:00-0400 Body mass index (BMI) [Ratio] 40.47 kg/m2 Zach Ball Other [employer] Other 07-08-2022 11:00-0400 Body weight 127.96 kg Zach Ball Other [employer] Other 07-08-2022 11:00-0400 Diastolic blood pressure 82 mm[Hg] Zach Ball Other [employer] Other 07-08-2022 11:00-0400 Respiratory rate 12 /min Zach Ball Other [employer] Other 07-08-2022 11:00-0400 Systolic blood pressure 122 mm[Hg] Zach Ball Other [employer] Other 07-01-2022 12:00-0400 Body height 177.8 cm Zach Ball Other [employer] Other 07-01-2022 12:00-0400 Body mass index (BMI) [Ratio] 40.83 kg/m2 Zach Ball Other [employer] Other 07-01-2022 12:00-0400 Body weight 129.09 kg Zach Ball Other [employer] Other 07-01-2022 12:00-0400 Diastolic blood pressure 76 mm[Hg] Zach Ball Other [employer] Other 07-01-2022 12:00-0400 Respiratory rate 12 /min Zach Ball Other [employer] Other 07-01-2022 12:00-0400 Systolic blood pressure 124 mm[Hg] Zach Ball Other [employer] Other 06-05-2022 11:30-0500 Body height 177.8 cm Zach Ball Other [employer] Other 06-05-2022 11:30-0500 Body mass index (BMI) [Ratio] 40.83 kg/m2 Zach Ball Other [employer] Other 06-05-2022 11:30-0500 Body weight 129.09 kg Zach Ball Other [employer] Other 06-05-2022 11:30-0500 Diastolic blood pressure 78 mm[Hg] Zach Ball Other [employer] Other 06-05-2022 11:30-0500 Respiratory rate 12 /min Zach Ball Other [employer] Other 06-05-2022 11:30-0500 Systolic blood pressure 122 mm[Hg] Zach Ball Other [employer] Other 07-29-2021 07:42-0400 Blood Pressure Location Bonifacio MITCHELL [facility] 07-29-2021 07:42-0400 Diastolic blood pressure 86 mm[Hg] Bonifacio MITCHELL [facility] [employer] 07-29-2021 07:42-0400 Heart rate 72 /min Bonifacio MITCHELL [facility] [place] 07-29-2021 07:42-0400 Systolic blood pressure 133 mm[Hg] Bonifacio MITCHELL [facility] [place] Encounters Encounter Date Encounter Type Care Provider Facility Start: 07-22-2023 ambulatory Bonifacio MITCHELL Facility :[facility] Start: 07-15-2023 ambulatory Bonifacio MITCHELL Facility :[facility] Start: 07-09-2023 End: 07-10-2023 ambulatory Zach Ball Facility:[facility] Start: 07-09-2023 End: 07-10-2023 Evaluation and management of inpatient DO Zach Ball Work Phone: [address] Surgical Work Phone: Start: 07-09-2023 End: 07-10-2023 observation encounter DO Zach Ball Work Phone: [facility] Work Phone: Start: 07-09-2023 End: 07-10-2023 Admission to same day surgery center DO Zach Ball Work Phone: [facility] [place] Start: 07-09-2023 End: 07-10-2023 ambulatory DO Zach Ball Work Phone: [facility] Work Phone: Start: 07-08-2023 End: 07-09-2023 ambulatory Bonifacio MITCHELL [place] Start: 07-08-2023 End: 07-09-2023 [facility] Start: 07-08-2023 End: 07-08-2023 Lab Drop off Bonifacio MITCHELL [facility] Start: 07-08-2023 End: 07-08-2023 Patient encounter procedure Bonifacio Hubbard STEPHEN [facility] [place] Start: 07-05-2023 End: 07-05-2023 ambulatory ZACH MARTÍNEZ Not Available Start: 06-29-2023 Non-patient / Non-visit DO Clifford Stover Work Phone: [facility] Work Phone: Start: 06-28-2023 End: 06-28-2023 ambulatory Zach Stover Facility:[facility] Start: 06-28-2023 End: 06-28-2023 Patient encounter procedure DO Zach Stover Work Phone: [facility] [place] Work Phone: Start: 06-21-2023 Non-patient / Non-visit DO Clifford Stover Work Phone: [facility] Work Phone: Start: 06-09-2023 ambulatory Rene ohoker MD Work Phone: Hematology/Oncology Comment on above: Pathology results Start: 06-09-2023 Telephone encounter Miguel Bond Hematology/Oncology Comment on above: Results; Pathology Start: 06-07-2023 End: 06-07-2023 ambulatory ZACH STOVER Facility:[facility] Start: 06-07-2023 Telephone encounter Rene mendez MD Work Phone: [facility] Comment on above: Results Start: 06-07-2023 End: 06-07-2023 Office outpatient visit 15 minutes Rene Cast MD Work Phone: Hematology/Oncology Comment on above: 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) Start: 05-28-2023 Telephone encounter Zach Cheatham [facility] Start: 05-28-2023 End: 05-28-2023 ambulatory [employer] [facility] [employer] Other Start: 05-21-2023 Telephone encounter Claudia Cedillo RN [facility] Comment on above: Radiology Pre Proced ure Instructions Start: 05-19-2023 Telephone encounter Rene mendez MD Work Phone: Hematology/Oncology Comment on above: FMLA Paperwork Start: 05-17-2023 ambulatory Rene hooker MD Work Phone: Hematology/Oncology Comment on above: FMLA paperwork Start: 05-15-2023 End: 05-15-2023 ambulatory Zach Stover Other [employer] Other Start: 05-15-2023 Encounter by sea Stover [facility] Start: 05-14-2023 End: 05-14-2023 ambulatory ZACH Kang CK Facility:[facility] Start: 05-12-2023 End: 05-12-2023 Patient encounter procedure DO Zach Stover Work Phone: [facility] Work Phone: Start: 05-12-2023 End: 05-12-2023 ambulatory Zach Stover Facility:[facility] Start: 05-12-2023 End: 05-12-2023 ambulatory DO Zach Stover Work Phone: [facility] Work Phone: Start: 05-12-2023 End: 05-12-2023 Patient encounter procedure DO Zach Stover Work Phone: [facility]- Start: 05-07-2023 End: 05-07-2023 ambulatory Zach Stover Other [employer] Other Start: 05-07-2023 Telephone encounter Zach PLATT [facility] Start: 05-05-2023 End: 05-08-2023 ambulatory [facility] Start: 05-05-2023 End: 05-07-2023 Subsequent hospital visit by physician [employer] [facility] Comment on above: Humeral avulsion gle nohumeral ligament lesion, right, initial encounter; Strain of right elbow, initial encounter Start: 04-28-2023 End: 04-28-2023 Emergency department patient visit ZACH STOVER [facility] Start: 04-28-2023 End: 04-28-2023 Emergency department patient visit Cain Fitzgerald MD Work Phone: [facility] ED Comment on above: Sprain of right shou lder, unspecified shoulder sprain type, initial encounter (Primary Dx) Start: 03-30-2023 End: 03-30-2023 ambulatory Zach Stover Other [employer] Other Start: 03-30-2023 Telephone encounter Zach [facility]over [facility] Start: 03-29-2023 End: 03-29-2023 ambulatory ZACH Solis [facility] Not Available Start: 03-29-2023 End: 03-29-2023 Patient encounter procedure DO Zach Stover Work Phone: [facility] Work Phone: Start: 03-25-2023 End: 03-25-2023 ambulatory Zach Martínez Facility:[facility] Start: 03-25-2023 End: 03-25-2023 ambulatory DO Zach Stover Work Phone: [facility] Work Phone: Start: 03-25-2023 End: 03-25-2023 Patient encounter procedure DO Zach Stover Work Phone: [facility] [place] Work Phone: Start: 03-16-2023 End: 03-16-2023 ambulatory Zach Stover Other [employer] Other Start: 03-16-2023 Telephone encounter Zach PLATT [facility] Start: 01-26-2023 End: 01-26-2023 ambulatory Zach Stover Facility:[facility] Start: 01-26-2023 End: 01-26-2023 ambulatory DO Zach Stover Work Phone: [facility] Work Phone: Start: 01-26-2023 End: 01-26-2023 Patient encounter procedure DO Zach Ball Work Phone: [facility] [place] Work Phone: Start: 01-14-2023 End: 01-14-2023 ambulatory Zach Stover Other [employer] Other Start: 01-14-2023 Office outpatient vi sit 15 minutes Zach Ball [facility] Start: 12-22-2022 End: 12-22-2022 ambulatory Zach Stover Other [employer] Other Start: 12-22-2022 Telephone encounter Zach [facility] Start: 12-18-2022 End: 12-18-2022 ambulatory Zach Martínez Facility:[facility] Start: 12-18-2022 End: 12-18-2022 Admission to same day surgery center DO Zach Ball Work Phone: [facility] [place] Start: 12-18-2022 End: 12-18-2022 ambulatory DO Zach Ball Work Phone: [facility] Work Phone: Start: 12-16-2022 End: 12-16-2022 ambulatory Zach Stover Other [employer] Other Start: 12-16-2022 Office outpatient vi sit 15 minutes Zach Stover [facility] Start: 12-11-2022 End: 12-11-2022 ambulatory Zach Stover Other [employer] Other Start: 12-11-2022 Telephone encounter Zach Stover LC [facility] Start: 12-10-2022 End: 12-10-2022 ambulatory Zach Karsoncek Facility:[facility] Start: 12-10-2022 End: 12-10-2022 ambulatory DO Zach Ball Work Phone: [facility] Work Phone: Start: 12-10-2022 End: 12-10-2022 Patient encounter procedure DO Zach Stover Work Phone: [facility]-Pre-Surgical Testing Work Phone: Start: 10-30-2022 End: 10-30-2022 ambulatory Zach Stover Other [employer] Other Start: 10-30-2022 Telephone encounter Zach Ck FP [facility] Start: 10-16-2022 End: 10-16-2022 ambulatory Zach Ball Other [employer] Other Start: 10-16-2022 Telephone encounter Zach Ball FP [facility] Start: 10-08-2022 End: 10-08-2022 ambulatory Zach Ball Other [employer] Other Start: 10-08-2022 Office outpatient vi sit 25 minutes Zach Ball [facility] Start: 10-06-2022 End: 10-06-2022 ambulatory Zach Ball Other [employer] Other Start: 10-06-2022 Telephone encounter Zach Stover FP [facility] Start: 08-17-2022 ambulatory Bonifacio MITCHELL Facility :[facility] [place] Start: 08-12-2022 End: 08-12-2022 ambulatory Zach Ball Other [employer] Other Start: 08-12-2022 Office outpatient vi sit 25 minutes Zach Ball [facility] Start: 08-03-2022 End: 08-04-[address] ZACH STOVER Facility:[facility] Start: 07-27-2022 End: 07-27-2022 ambulatory Zach Ball Other [employer] Other Start: 07-27-2022 Telephone encounter Zach Ck FP [facility] Start: 07-08-2022 End: 07-08-2022 ambulatory Zach Ball Other [employer] Other Start: 07-08-2022 Office outpatient vi sit 15 minutes Zach Stover [facility] Start: 07-01-2022 End: 07-02-[address] ZACH STOVER [facility] [employer] Other Start: 07-01-2022 Office outpatient vi sit 15 minutes Zach Stover [facility] Start: 07-01-2022 Telephone encounter Zach Stover [facility] Start: 06-25-2022 End: 07-02-[address] ZACH STOVER Facility:[facility] Start: 06-23-2022 Telephone encounter Zach Stover FP [facility] Start: 06-23-2022 End: 06-24-[address] ZACH STOVER [facility] [employer] Other Start: 06-22-2022 End: 06-22-2022 Patient encounter procedure Bonifacio MITCHELL [facility] Start: 06-16-2022 End: 06-16-2022 ambulatory Zach Stover Other [employer] Other Start: 06-16-2022 Telephone encounter Zach Stover [facility] Start: 06-09-2022 End: 06-10-[address] ZACH STOVER Facility:[facility] Start: 06-08-2022 End: 06-08-2022 ambulatory Zach Stover Other [employer] Other Start: 06-08-2022 Telephone encounter Zach Stover [facility] Start: 06-05-2022 End: 06-05-2022 ambulatory Zach Stover Other [employer] Other Start: 06-05-2022 Office outpatient vi sit 15 minutes Zach Stover [facility] Start: 05-04-[address] [facility] Start: 04-17-2022 End: 04-17-2022 ambulatory Zach Stover Other [employer] Other Start: 04-17-2022 Telephone encounter Zach Stover [facility] Start: 03-24-2022 Adult health examination Zach Stover Other [employer] Other Start: 03-22-2022 End: 03-22-2022 Pre-procedure evaluation check Zach Stover Other [employer] Other Start: 08-29-2021 End: 08-30-[address] ZACH STOVER Facility: Start: 07-29-2021 End: 07-29-2021 Patient encounter procedure Bonifacio MITCHELL [facility] Procedures Date Procedure Procedure Detail Performing Clinician Start: 07-09-2023 Transurethral prostatectomy DO Zach Stover Work Phone: Start: 07-08-2023 Transurethral cystoscopy Bonifacio MITCHELL Start: 05-12-2023 Positron emission to mography with computed tomography DO Zach Stover Work Phone: Start: 05-05-2023 Mri any jt upper ext remity w/o contrast matrl Meryl Howe [employer] Work Phone: Start: 04-28-2023 Radex shoulder compl ete minimum 2 views Cain Fitzgerald MD Work Phone: Start: 12-18-2022 Lobectomy of thyroid gland DO Zach Stover Work Phone: Start: 08-29-[address] KAMRAN RUANO [facility] Comment on above: Performed By: #### P [facility] #### [facility] [address] [place] [address] Dr. David Davison Start: 12-20-2019 Colonoscopy [place]acio [place] Start: 06-06-2019 Cystoscopy [place] Start: 05-10-2018 Cystoscopy [place] Start: 04-19-2018 Repair of musculoten dinous cuff of shoulder Bonifacio MITCHELL Start: 08-21-2016 Cystoscopy [place] Start: 08-09-2015 Cystoscopy [place] Start: 05-09-2015 General examination of patient Zach Stover Other Start: 08-02-2014 Cystoscopy [place] Start: 09-25-2011 Cystoscopy [place] Start: 03-27-2011 Cystoscopy [place] Start: 08-22-2010 Cystoscopy [place] Start: 02-24-2010 Cystoscopy Bonifacio [place] Start: 11-15-2009 Cystoscopy [place] Colonoscopy Bonifacio MITCHELL Comment on above: 2000 Depression screening Reinaldo Stover Other Rupture of anterior cruciate ligament (disorder) Bonifacio MITCEHLL Comment on above: left x 2 Screening for malign ant neoplasm of colon Zach Stover Other Screening for malign ant neoplasm of colon Zach Stover Other Screening for malign ant neoplasm of prostate Zach Stover Other Plan of Treatment Date Care Activity Detail Author Start: 05-14-2028 Prostate specific an tigen measurement Prostate Cancer Screening Discussion [facility] Start: 05-14-2026 Diabetes Screening Diabetes Screenin g [facility] Start: 07-10-2023 [facility] Start: 07-09-2023 Hospital admission [facility] Start: 04-19-2023 Depression Assessment Depression Ass essment [facility] Start: 12-18-2022 [facility] Start: 12-18-2022 [facility] Start: 12-18-2022 COVID-19 Vaccine ( season) COVID-19 Vaccine ( season) [facility] Start: 12-18-2022 Covid-19 Vaccine ( season) Covid-19 Vaccine ( season) [facility] Start: 12-18-2022 Influenza vaccination Influenza Vacc ine (#1) [facility] Start: 11-17-2022 Influenza vaccination Flu vaccine (# 1) [facility] Start: 12-09-2017 Lipid panel Lipids [facility] Start: 12-05-2016 Urine microalbumin profile DTaP,Tdap,Td Vaccine (1 - Tdap) [facility] Start: 2016 Shingles vaccine (1 of 2) Jalloh gles vaccine (1 of 2) [facility] Start: 2016 Shingrix Vaccine (1 of 2) Jalloh grix Vaccine (1 of 2) [facility] Start: 2011 Screening for malign ant neoplasm of colon [facility] Start: 2001 Lipid panel Lipid Screening [facility] Start: 1985 DTaP/Tdap/Td vaccine (1 - Tdap) DTaP/Tdap/Td vaccine (1 - Tdap) [facility] Start: 1985 Urine microalbumin profile DTaP,Tdap,Td Vaccine (1 - Tdap) [facility] Start: 1984 Hepatitis C screening [facility] Start: 1984 HIV screening HIV Screening [facility] Start: 1981 HIV screening HIV screen [facility] Start: 1978 Depression Screen Depression Screen [facility] Start: 1966 Hepatitis B vaccine (1 of 3 - 3-dose series) Hepatitis B vaccine (1 of 3 - 3-dose series) [facility] Patient Education How to Care fo r Your Vera Catheter Vera Catheter FR Vera Catheter Care at Home [facility] Work Phone: Patient referral [facility] Work Phone: Thyroxine measurement [facility] Immunizations Immunization Date Immunization Notes Care Provider Sherie velasquez 01-14-2023 influenza, injectabl e, quadrivalent, preservative free Zach Stover Other [facility] 05-07-2021 COVID-19 mRNA-1273 (Moderna) DO Zach Stover Work Phone: [facility] 02-26-2021 influenza virus vaccine, split virus (incl. purified surface antigen) Zach Stover Other [employer] Other 02-26-2021 influenza virus vaccine, unspecified formulation DO Zach Stover Work Phone: [facility] 05-15-2020 COVID-19 mRNA-1273 (Moderna) DO Zach Stover Work Phone: [facility] 05-09-2020 SARS-CoV-2 (COVID-19 ) mRNA-1273 vaccine Bonifacio MITCHELL [facility] 04-17-2020 SARS-CoV-2 (COVID-19 ) mRNA-1273 vaccine Bonifacio MITCHELL [facility] 01-30-2019 influenza virus vaccine, unspecified formulation Rene Cast MD Work Phone: [facility] 01-17-2019 influenza virus vaccine, live, attenuated, for intranasal use Bonifacio MITCHELL [facility] 12-04-2016 tetanus and diphther ia toxoids, adsorbed, preservative free, for adult use (5 Lf of tetanus toxoid and 2 Lf of diphtheria toxoid) Zach Stover Other [facility] Payers Date Payer Category Payer [employer] ( and others) [id number] 2022 [employer] ( and others) [id number] 2021 Unknown [id number] 71.315 2020 Unknown [id number] 71.315 1966 Unknown [id number] 2.16.840.1.355960.3.579.2.593 1966 Unknown [id number] 2.16.840.1.533068.3.579.2.593 1966 Unknown [id number] 2.16.840.1.396492.3.579.2.593 1966 Unknown [id number] 2.16.840.1.180039.3.579.2.593 1966 Unknown [id number] 2.16.840.1.815932.3.579.2.593 1966 Unknown [id number] 2.16.840.1.520431.3.579.2.593 1966 Unknown [id number] 2.16.840.1.170867.3.579.2.593 1966 Unknown [id number] 2.16.840.1.713720.3.579.2.593 1966 Unknown [id number] 2.16.840.1.165172.3.579.2.173 1966 Unknown [id number] 2.16.840.1.032220.3.579.2.173 1966 Unknown [id number] 2.16.840.1.587488.3.579.2.1259 1966 Unknown [id number] 2.16.840.1.993387.3.579.2.1259 1966 Unknown [id number] 2.16.840.1.588873.3.579.2.727 1966 Unknown [id number] 2.16.840.1.688811.3.579.2.727 1966 Unknown [id number] 2.16.840.1.483939.3.579.2.727 1966 Unknown [id number] 2.16.840.1.865511.3.579.2.727 1966 Unknown [id number] 2.16.840.1.783087.3.579.2.727 1959 [facility] CBKAN [id number] 2.16.840.1.240020.19 1959 [facility] of [facility] e ( and others) [id number] 1959 Self-pay Unknown [id number] 2.16.840.1.924975.3.579.2.531 Unknown [id number] 2.16.840.1.512033.3.579.2.531 Unknown [id number] 2.16.840.1.759102.3.579.2.531 Unknown [id number] 2.16.840.1.611759.3.579.2.531 Unknown [id number] 2.16.840.1.719544.3.579.2.531 Unknown [id number] 2.16.840.1.537686.3.579.2.531 Unknown [id number] 2.16.840.1.827111.3.579.2.531 Social History Date Type Detail Facility Start: 06-27-2020 End: 07-10-2023 Tobacco smoking status Never smoked tobacco (finding) [facility] Tobacco smoking status Never [facility] Start: 11-02-2018 End: 05-14-2023 Sex Assigned At Male [facility] Start: 1965 Sex Assigned At Male F [facility] Start: 11-02-2018 End: 05-14-2023 History of Social function [facility] Start: 1965 Sex Assigned At Not on file [facility] How often to you hav e a drink containing alcohol? 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 [facility] Work Phone: 07-08-2023 Functional Status N/A [facility] Mental Status Date Assessment Result Facility 07-10-2023 Cognitive function Cognitive Sta tus Patient at Baseline [facility] Work Phone: Clinical Notes 07-29-2021 to 07-08-2023 Telephone Encounter - Rosario Fair - 06/11/2023 11:01 AM ESTTelephone Encounter - Miguel Collazo RN - 06/11/2023 10:41 AM ESTTelephone Encounter - Miguel Collazo RN - 06/10/2023 10:11 AM EST Note Date & Type Note Facility 07-08-2023 Hospital Discharg e instructions Patient Education 07/08/2023 16:45:11 Transurethral Resection of the Prostate Transurethral Resection of the Prostate Transurethral resection of the prostate (TURP) is the removal, or resection, of part of the prostate tissue. This procedure is done to treat an enlarged prostate gland (benign prostatic hyperplasia). The goal of TURP is to remove enough prostate tissue to allow for a normal flow of urine. The procedure will allow you to empty your bladder more completely when you urinate so that you can urinate less often. In a transurethral resection, a thin telescope with a light, a camera, and an electric cutting edge (resectoscope) is passed through the urethra and into the prostate. The opening of the urethra is at the end of the penis. Tell a health care provider about: Any allergies you have. All medicines you are taking, including vitamins, herbs, eye drops, creams, and gjeh-yuu-lerftec medicines. Any problems you or family members have had with anesthetic medicines. Any bleeding problems you have. Any surgeries you have had. Any medical conditions you have. Any prostate infections you have had. What are the risks? Generally, this is a safe procedure. However, problems may occur, including: Infection. Bleeding. Allergic reactions to medicines. Blood in the urine (hematuria). Damage to nearby structures or organs. Other problems may occur, but they are rare. They include: Dry ejaculation, or having no semen come out during orgasm. Erectile dysfunction, or being unable to have or keep an erection. Scarring that leads to narrowing of the urethra. This narrowing may block the flow of urine. Inability to control when you urinate (incontinence). Deep vein thrombosis. This is a blood clot that can develop in your leg. TURP syndrome. This can happen when you lose too much sodium during or after the procedure. Some signs and symptoms of this condition include: ?Weakness. ?Headaches. ?Nausea or vomiting. ?Muscle cramping. What happens before the procedure? When to stop eating and drinking Follow instructions from your health care provider about what you may eat and drink before your procedure. These may include: 8 hours before your procedure ?Stop eating most foods. Do not eat meat, fried foods, or fatty foods. ?Eat only light foods, such as toast or crackers. ?All liquids are okay except energy drinks and alcohol. 6 hours before your procedure ?Stop eating. ?Drink only clear liquids, such as water, clear fruit juice, black coffee, plain tea, and sports drinks. ?Do not drink energy drinks or alcohol. 2 hours before your procedure ?Stop drinking all liquids. ?You may be allowed to take medicines with small sips of water. If you do not follow your health care provider's instructions, your procedure may be delayed or canceled. Medicines Ask your health care provider about: Changing or stopping your regular medicines. This is especially important if you are taking diabetes medicines or blood thinners. Taking medicines such as aspirin and ibuprofen. These medicines can thin your blood. Do not take these medicines unless your health care provider tells you to take them. Taking puki-afk-onmmvpn medicines, vitamins, herbs, and supplements. Surgery safety Ask your health care provider what steps will be taken to help prevent infection. These steps may include: Removing hair at the surgery site. Washing skin with a germ-killing soap. Taking antibiotic medicine. General instructions Do not use any products that contain nicotine or tobacco for at least 4 weeks before the procedure. These products include cigarettes, chewing tobacco, and vaping devices, such as e-cigarettes. If you need help quitting, ask your health care provider. If you will be going home right after the procedure, plan to have a responsible adult: ?Take you home from the hospital or clinic. You will not be allowed to drive. ?Care for you for the time you are told. What happens during the procedure? An IV will be inserted into one of your veins. You will be given one or more of the following: ?A medicine to help you relax (sedative). ?A medicine to make you fall asleep (general anesthetic). ?A medicine that is injected into your spine to numb the area below and slightly above the injection site (spinal anesthetic). Your legs will be placed in foot rests (stirrups) so that your legs are apart and your knees are bent. The resectoscope will be passed through your urethra to your prostate. Parts of your prostate will be resected using the cutting edge of the resectoscope. Fluid will be passed to rinse out the cut tissues (irrigation). The resectoscope will be removed. A small, thin tube (catheter) will be passed through your urethra and into your bladder. The catheter will drain urine into a bag outside of your body. The procedure may vary among health care providers and hospitals. What happens after the procedure? Your blood pressure, heart rate, breathing rate, and blood oxygen level will be monitored until you leave the hospital or clinic. You will be given fluids through the IV. The IV will be removed when you start eating and drinking normally. You may have some pain. Pain medicine will be available to help you. You will have a catheter draining your urine. ?You may have blood in your urine. Your catheter may be kept in until your urine is clear. ?Your urinary drainage will be monitored. If necessary, your bladder may be rinsed out (irrigated) through your catheter. You will be encouraged to walk around as soon as possible. You may have to wear compression stockings. These stockings help to prevent blood clots and reduce swelling in your legs. If you were given a sedative during the procedure, it can affect you for several hours. Do not drive or operate machinery until your health care provider says that it is safe. Summary Transurethral resection of the prostate (TURP) is the removal (resection) of part of the prostate tissue. The goal of this procedure is to remove enough prostate tissue to allow for a normal flow of urine. Follow instructions from your health care provider about taking medicines and about eating and drinking before the procedure. This information is not intended to replace advice given to you by your health care provider. Make sure you discuss any questions you have with your health care provider. Document Revised: 12/30/2021 Document Reviewed: 12/30/2021 [employer] Patient Education 2022 [employer]. Follow Up Care 06/03/2023 13:13:20 With:STEPHEN PABLO, Bonifacio Hubbard, URL Address: [address] [place], [place] [id number]- When: Unknown [facility] [place] 06-11-2023 Miscellaneous Notes Spoke to Elroy, scheduled WedJuly 27 at 10:45 for path review (plan of care discussion). Called to check status. Dr Mitchell reviewed and added Prostate Bx to appt 07/08/23. The pathology will take approximately 2 weeks to get back (07/22/23). Pt updated and has talked with Joyce at Dr Julienne Posadask: Update/FYI PSS: Please call pt for Ed's schedule week of 07/26/23 for path review (plan of care discussion). Miguel Collazo, OCTAVIO Called and updated pt on pathology findings and Ed's recommendations. Pt is scheduled for Cystoscopy with Dr Mitchell 07/05. I called to Dr Mitchell's office and spoke with Imelda. Pt is scheduled for yearly cystoscopy for his h/o bladder cancer 07/08/23. I let her know the pt thinks he is scheduled 07/05. They are unaware of any Prostate concerns (besides his BPH). They did not have the elevated PSA result from 05/14/23. I discussed the preliminary findings from pathology, as described below per Ed. We do not have the final report to send for Dr Mitchell to review. I did fax all lab results. She will get a message to Dr Mitchell and call us back with an update Called and updated Elroy, as well. He is aware of the scheduled cystoscopy discrepancy. He reports that Dr Mitchell was aware of the elevated PSA and has discussed with him personally. He is aware Imelda sent Dr Mitchell a message and we will await his response. He will call the office tomorrow, if he has not heard back. Encouraged Elroy to let us know when he gets scheduled for his Prostate BX and we will schedule a Ed appt 7-10 days following to discuss results; POC. Miguel Collazo RN Path came back inconclusive - looks suspicious and appears to have carcinoma but because the sample is small and the tissue had significant crush artifact, they could not give a definitive answer. I believe he has a biopsy of the prostate arranged with his urologist. He should proceed with that and if it is positive for prostate cancer, we can get a PSMA PET to help figure out the bones. Pathologist called to discuss bone marrow bx pathology finding with Dr Ward. Ed: Please advise Miguel Collazo RN documented in this encounter [facility] 06-09-2023 Miscellaneous Notes Is there anything I can do to speed up the process? Should I call F pathology and simply ask what s up ? Will your office call pathology? Am I just overthinking this? Elroy Pathology update: provided to pt as well to keep him updated as well. Good morning Elroy, I reached out to pathology yesterday morning. They had ordered some additional testing, which is not usual. This is to aid in confirming or ruling out a diagnosis. I spoke to them again this morning. The testing is under review by a pathologist. This will take a few more days to result. I will be checking often for any final results. Dr Ward will be in touch once they are in and reviewed. Best regards, OCTAVIO Greenk: JOHN Ok thank you! Spoke with Pathology at . She reports a fellow had ordered additional stains this morning and it is not yet assigned to a pathologist. She will send a message and call back to update status, prelim results, once she gets a response. Miguel Dr Ward is requesting Triage to call Path results . documented in this encounter [facility] 06-07-2023 Note HNO ID: [id number] Author: RENE CAST MD Service: ? Author Type: Physician Type: Progress Notes Filed: 06/08/2023 09:06 Note Text: NAME: Jm Pat [facility] NO.: [id number] DATE OF SERVICE: June 07, 2023 (Lexie) Some elements in this clinic note that are critical to medical decision making have been carefully reviewed and included from a prior clinic note dated: May 14, 2023. Referring Provider: Dr. Zach Stover Additional Clinicians involved in Jm Pat's care: DIAGNOSIS: Metastatic bone lesions ASSESSMENT: 57 year oldwith multiple bone lesions in addition to uptake at prostate on PET/CT done after MRI imaging for right shoulder was done and noted suspicious bone lesions. Suspect metastatic prostate cancer and will need histologic confirmation. Would biopsy metastatic sites prior to biopsying prostate given assumption of stage 4 disease. PLAN: Triage call Path results HPI: CASE HISTORY: Reverse Chronological Order 05/28/2023 - Iliac Bone Bx: Pathology: pending 05/12/2023 - PET Skull/Thigh: Abnormal activity is seen involving the right aspect of the prostate gland suspicious for underlying malignancy. Scattered areas of activity are noted involving the humeri, ribs, spine, sacrum, and bony pelvis demonstrates sclerosis on the concurrent CT. Given the prostate findings, metastatic disease is suspected. 05/05/2023 - MRI Shoulder: greater than 3cm anterior-posterior full-thickness tear of the rotator cuff repair. Retraction of the torn fibers to the gland. Marked supraspinatus muscle volume loss. Suspect subcranial decompression and long head of the biceps tenodesis without complication. Large joint effusion and synovitis and debris. 2 nonspecific lesions within the humerus. These are not present on the 2019 CT scan and not radiographically visible. Because of the multiplicity metastatic disease should be considered and recommend PET/CT scan to further evaluate if not already known and evaluated. 04/28/2023 - ED visit: right shoulder dislocated 06/2022 - CT A/P: Acute diverticulitis involving the sigmoid colon. No abscess or free air. There is a small amount of air within the urinary bladder. Normal liver, pancreas, adrenals, kidneys, and bones. 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 Started fasting and has dropped 10 lbs. Had sciatic pain following biopsy but resolved. Due for cysto for bladder with Stephen. Initial Visit, May 14, 2023: Jm Pat presents today Hematology and Oncology evaluation. 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 We reviewed his PET scan together. He needs more diagnostic testing - refer to radiology. If he does have prostate cancer, I recommend endocrine therapy. We discussed possible prognoses. He could have possible side effects of lower testosterone. We talked about insulin driving tumor growth and eating less carbs. Add inulin, psyllium supplements, and fasting protocols. Uncle had liver cancer, father had a stroke, grew up with exposure to smoke. He uses chewing tobacco. 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 Their son is a cook candy. from HANDP from Dr. Stover at [facility] (05/12/2023): History of Present Illness: ... Mr. Pat injured his right shoulder while working, prompting a MRI to be scheduled. Two separate bone lesions were visualized in the right proximal humerus, measuring about 2cm in size. A PET/CT scan revealed multiple bone lesions, involving the humerus, spine, sacrum, and pelvis. There was also an abnormal area in the right lobe of the prostate. He is seeing Dr. Mitchell annually for known hx of bladder cancer. He is seeing Dr Martínez after a total thyroidectomy for a benign mass. PSA: 05/2020 - 08/2021 - 1.10 02/2022 - 2.40 Mr. Pat admits to typical MSK aches and pains. He denies change in appetite, night sweats, or weight loss. Assessments: Metastasis to bone (Primary) Postoperative hypothyroidism Primary hypertension Elevated cholesterol Impaired fasting glucose Obstructive sleep apnea from Emergency Department Visit at [facility] (04/28/2023): History from Patient: 57-year-old patient presents to the emergency department with concerns of injuring his right shoulder. 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 With attempts at moving his right shoulder. Patient is right arm do (more content not included)... [facility] 06-07-2023 Instructions Rene Cast MD - 06/07/2023 1:55 PM EST Triage call Path results documented in this encounter [facility] 06-07-2023 History of Presen t illness Narrative Images from the original note were not included. NAME: Jm Pat [facility] NO.: [id number] DATE OF SERVICE: June 07, 2023 (Lexie) Some elements in this clinic note that are critical to medical decision making have been carefully reviewed and included from a prior clinic note dated: May 14, 2023. Referring Provider: Dr. Zach Stover Additional Clinicians involved in Jm Pat's care: DIAGNOSIS: Metastatic bone lesions ASSESSMENT: 57 year oldwith multiple bone lesions in addition to uptake at prostate on PET/CT done after MRI imaging for right shoulder was done and noted suspicious bone lesions. Suspect metastatic prostate cancer and will need histologic confirmation. Would biopsy metastatic sites prior to biopsying prostate given assumption of stage 4 disease. PLAN: Triage call Path results HPI: CASE HISTORY: Reverse Chronological Order 05/28/2023 - Iliac Bone Bx: Pathology: pending 05/12/2023 - PET Skull/Thigh: Abnormal activity is seen involving the right aspect of the prostate gland suspicious for underlying malignancy. Scattered areas of activity are noted involving the humeri, ribs, spine, sacrum, and bony pelvis demonstrates sclerosis on the concurrent CT. Given the prostate findings, metastatic disease is suspected. 05/05/2023 - MRI Shoulder: greater than 3cm anterior-posterior full-thickness tear of the rotator cuff repair. Retraction of the torn fibers to the gland. Marked supraspinatus muscle volume loss. Suspect subcranial decompression and long head of the biceps tenodesis without complication. Large joint effusion and synovitis and debris. 2 nonspecific lesions within the humerus. These are not present on the 2019 CT scan and not radiographically visible. Because of the multiplicity metastatic disease should be considered and recommend PET/CT scan to further evaluate if not already known and evaluated. 04/28/2023 - ED visit: right shoulder dislocated 06/2022 - CT A/P: Acute diverticulitis involving the sigmoid colon. No abscess or free air. There is a small amount of air within the urinary bladder. Normal liver, pancreas, adrenals, kidneys, and bones. 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 Started fasting and has dropped 10 lbs. Had sciatic pain following biopsy but resolved. Due for cysto for bladder with Stephen. Initial Visit, May 14, 2023: Jm Pat presents today Hematology and Oncology evaluation. 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 We reviewed his PET scan together. He needs more diagnostic testing - refer to radiology. If he does have prostate cancer, I recommend endocrine therapy. We discussed possible prognoses. He could have possible side effects of lower testosterone. We talked about insulin driving tumor growth and eating less carbs. Add inulin, psyllium supplements, and fasting protocols. Uncle had liver cancer, father had a stroke, grew up with exposure to smoke. He uses chewing tobacco. 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 Their son is a cook candy. from H&P from Dr. Stover at [facility] (05/12/2023): History of Present Illness: ... Mr. Pat injured his right shoulder while working, prompting a MRI to be scheduled. Two separate bone lesions were visualized in the right proximal humerus, measuring about 2cm in size. A PET/CT scan revealed multiple bone lesions, involving the humerus, spine, sacrum, and pelvis. There was also an abnormal area in the right lobe of the prostate. He is seeing Dr. Mitchell annually for known hx of bladder cancer. He is seeing Dr Martínez after a total thyroidectomy for a benign mass. PSA: 05/2020 - 08/2021 - 1.10 02/2022 - 2.40 Mr. Pat admits to typical MSK aches and pains. He denies change in appetite, night sweats, or weight loss. Assessments: Metastasis to bone (Primary) Postoperative hypothyroidism Primary hypertension Elevated cholesterol Impaired fasting glucose Obstructive sleep apnea from Emergency Department Visit at [facility] (04/28/2023): History from Patient: 57-year-old patient presents to the emergency department with concerns of injuring his right shoulder. 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 With attempts at moving his right shoulder. Patient is right arm dominant. He has had rotator cuff surgery in the past by Dr. Johnson Patient denies any numbness tingling. The patient denies any neck discomfort Injury occurred just prior to ED arrival Differential Diagnosis: Acute dislocation right shoulder/acute rotator cuff right shoulder Pertinent Comorbid Conditions: Previous history positive for rotator cuff surgery on the right shoulder REVIEW OF SYSTEMS Per HPI and otherwise negative by full review of organ systems. ECOG PERFORMANCE STATUS: 0 PHYSICAL EXAMINATION: Vitals: BP 124/81 Pulse 77 Temp (Src) 97 (Temporal) Resp 16 Ht 5' 10.984 (1.80m) Wt 269 lb 2.9 oz (122.1kg) SpO2 98% BMI 37.56 kg/(m^2). Body surface area is 2.47 meters squared. Exam limited to gross visualization where appropriate. Gen.: This is an age-appropriate patient in no acute distress. Head: Appears atraumatic with no visible lesions. Eyes: Pupils equally round and reactive to light, extraocular muscles are intact. Neck: Supple. Respiratory: Appears to be respiring comfortably. Neurologic: Nonfocal to gross visualization. Alert and oriented 3. Psychiatric: No evidence of inappropriate anxiety or depression. Skin: Visible areas of skin without rash, lesions, wounds or petechiae. ALLERGIES: ALLERGIES No Known Allergies MEDICATIONS: alfuzosin SR (UROXATRAL) 10 mg 24 hr tablet ALPRAZolam (XANAX) 0.25 mg tablet amLODIPine (NORVASC) 5 mg tablet losartan (COZAAR) 100 mg tablet buPROPion XL (WELLBUTRIN XL) 300 mg 24 hr tablet carvedilol (COREG) 6.25 mg tablet celecoxib (CELEBREX) 200 mg capsule levothyroxine (SYNTHROID) 175 mcg tablet pravastatin (PRAVACHOL) 40 mg tablet zolpidem (AMBIEN) 10 mg cyclobenzaprine (FLEXERIL) 10 mg tablet hydroCHLOROthiazide 25 mg tablet Take 25 mg by mouth once daily. LABORATORY VALUES: WBC (k/uL) Date Value 05/14/2023 7.03 RBC (m/uL) Date Value 05/14/2023 5.10 Hemoglobin (g/dL) Date Value 05/14/2023 15.6 Hematocrit (%) Date Value 05/14/2023 42.8 MCV (fL) Date Value 05/14/2023 83.9 MCH (pg) Date Value 05/14/2023 30.6 MCHC (g/dL) Date Value 05/14/2023 36.4 (H) RDW-CV (%) Date Value 05/14/2023 12.5 Platelet Count (k/uL) Date Value 05/14/2023 207 MPV (fL) Date Value 05/14/2023 9.3 Glucose (mg/dL) Date Value 05/14/2023 146 (H) BUN (mg/dL) Date Value 05/14/2023 11 Creatinine (mg/dL) Date Value 05/14/2023 1.05 Sodium (mmol/L) Date Value 05/14/2023 137 Potassium (mmol/L) Date Value 05/14/2023 3.2 (L) Chloride (mmol/L) Date Value 05/14/2023 96 (L) CO2 (mmol/L) Date Value 05/14/2023 30 Protein, Total (g/dL) Date Value 05/14/2023 7.5 Albumin (g/dL) Date Value 05/14/2023 4.4 Calcium, Total (mg/dL) Date Value 05/14/2023 9.9 Alkaline Phosphatase (U/L) Date Value 05/14/2023 610 (H) Bilirubin, Total (mg/dL) Date Value 05/14/2023 0.6 AST (U/L) Date Value 05/14/2023 19 ALT (U/L) Date Value 05/14/2023 14 PSA (ng/mL) Date Value 05/14/2023 30.50 DIAGNOSIS: (C79.51, C80.1) 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) (primary encounter diagnosis) No past medical history on file. No past surgical history on file. No family history on file. I spent a total of 20 minutes on the date of the service which included preparing to see the patient, [id number] patient care, completing clinical documentation, performing a medically appropriate examination, counseling and educating the patient/family/caregiver, and ordering medications, tests, or procedures. Rene Cast MD, CPE Hematology and Oncology Services Provided at: [place], [place] Scribe Attestation: This note was scribed by Ines Junior on June 07, 2023 under the direction and supervision of Dr. Rene Cast. I attest that all of the information documented is correct to the best of my knowledge. Provider Attestation: I, Rene Cast MD, attest that all information documented by the above scribe is correct, and was supervised by me and under my direction. CC: Zach Stover ([place]) [address] [facility] [id number] documented in this encounter [facility] 05-24-2023 Miscellaneous Notes Pt called to check status. Forms have been signed and I faxed to [phone] per pt request. Placed to be scanned with Brian Soler. Miguel Collazo RN [place] paperwork completed and placed in folder to be signed. Sujata Bah documented in this encounter [facility] 05-21-2023 Miscellaneous Notes You are scheduled for a bone biopsy, on 05/28/2023. You are to arrive at 7:30 am and Report to [facility] First Floor Radiology Registration Desk. You can expect to be here for 4-8 hours. Diet: Do not eat any solid food after midnight the day of/night before your procedure. You may drink clear liquids until 6:30 am, which means black coffee, apple juice, black tea, or water only. Medications: Ok to take your cardiac, blood pressure, anti-seizure, and chronic pain medications with a sip of water, please take prior to arrival. Bring your current medication list. Dramatic Director/Transportation: How will you be arriving for your procedure? Private car. You will need a responsible adult to accompany you to and from the procedure. If you have any questions call [phone], option 3. documented in this encounter [facility] 05-15-2023 Evaluation note Encounter Date Diagnosis Assessment Notes Apr, CELINE (generalized anxiety disorder) (ICD-10 - F41.1) [facility] Other 01-26-2024 NoteHNO ID: [id number] Author: RENE CAST MD Service: ? Author Type: Physician Type: Progress Notes Filed: 05/16/2023 10:25 Note Text: NAME: Jm Pat [facility] NO.: [id number] DATE OF SERVICE: May 14, 2023 Referring Provider: Dr. Zach Stover Consultation requested by Dr. Zach Stover for an opinion regarding Mr. Jm Pat, and my final recommendations will be communicated back to the requesting physician by way of shared medical record or letter via US mail. Additional Clinicians involved in Jm Pat's care: DIAGNOSIS: Metastatic bone lesions ASSESSMENT: 57 year oldwith multiple bone lesions in addition to uptake at prostate on PET/CT done after MRI imaging for right shoulder was done and noted suspicious bone lesions. Suspect metastatic prostate cancer and will need histologic confirmation. Would biopsy metastatic sites prior to biopsying prostate given assumption of stage 4 disease. PLAN: Refer to IR for biopsy bone. RTC after biopsy to review. HPI: CASE HISTORY: Reverse Chronological Order 05/12/2023 - PET Skull/Thigh: Abnormal activity is seen involving the right aspect of the prostate gland suspicious for underlying malignancy. Scattered areas of activity are noted involving the humeri, ribs, spine, sacrum, and bony pelvis demonstrates sclerosis on the concurrent CT. Given the prostate findings, metastatic disease is suspected. 05/05/2023 - MRI Shoulder: greater than 3cm anterior-posterior full-thickness tear of the rotator cuff repair. Retraction of the torn fibers to the gland. Marked supraspinatus muscle volume loss. Suspect subcranial decompression and long head of the biceps tenodesis without complication. Large joint effusion and synovitis and debris. 2 nonspecific lesions within the humerus. These are not present on the 2019 CT scan and not radiographically visible. Because of the multiplicity metastatic disease should be considered and recommend PET/CT scan to further evaluate if not already known and evaluated. 04/28/2023 - ED visit: right shoulder dislocated 06/2022 - CT A/P: Acute diverticulitis involving the sigmoid colon. No abscess or free air. There is a small amount of air within the urinary bladder. Normal liver, pancreas, adrenals, kidneys, and bones. 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 We reviewed his PET scan together. He needs more diagnostic testing - refer to radiology. If he does have prostate cancer, I recommend endocrine therapy. We discussed possible prognoses. He could have possible side effects of lower testosterone. We talked about insulin driving tumor growth and eating less carbs. Add inulin, psyllium supplements, and fasting protocols. Uncle had liver cancer, father had a stroke, grew up with exposure to smoke. He uses chewing tobacco. 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 Their son is a cook candy. from HANDP from Dr. Stover at [facility] (05/12/2023): History of Present Illness: ... Mr. Pat injured his right shoulder while working, prompting a MRI to be scheduled. Two separate bone lesions were visualized in the right proximal humerus, measuring about 2cm in size. A PET/CT scan revealed multiple bone lesions, involving the humerus, spine, sacrum, and pelvis. There was also an abnormal area in the right lobe of the prostate. He is seeing Dr. Mitchell annually for known hx of bladder cancer. He is seeing Dr Martínez after a total thyroidectomy for a benign mass. PSA: 05/2020 - 08/2021 - 1.10 02/2022 - 2.40 Mr. Pat admits to typical MSK aches and pains. He denies change in appetite, night sweats, or weight loss. Assessments: Metastasis to bone (Primary) Postoperative hypothyroidism Primary hypertension Elevated cholesterol Impaired fasting glucose Obstructive sleep apnea from Emergency Department Visit at [facility] (04/28/2023): History from Patient: 57-year-old patient presents to the emergency department with concerns of injuring his right shoulder. 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 With attempts at moving his right shoulder. Patient is right arm dominant. He has had rotator cuff surgery in the past by Dr. Johnson Patient denies any numbness tingling. The patient denies any neck discomfort Injury occurred just (more content not included)...[facility] 05-12-2023 Evaluation note* Encounter Date Diagnosis Assessment Notes Treatment Notes Treatment Clinical Notes Apr, Metastasis to bone (ICD-10 - C79.51) Incidental finding on MRI of his right shoulder. PET/CT revealed multiple bone lesions suspicious for metastatic cancer. Abnormal uptake in the right lobe of the prostate. Apr, Postoperative hypothyroidism (ICD-10 - E89.0) Large, benign thyroid mass excised. Euthyroid clinically, f/u with ENT. Apr, Primary hypertension (ICD-10 - I10) Stable w/ treatment. Apr, Elevated cholesterol (ICD-10 - E78.00) Stable w/ treatment Apr, IFG (impaired fastin g glucose) (ICD-10 - R73.01) A1C < 6.5% Diet controlled at this time. Apr, Obstructive sleep apnea (ICD-10 - G47.33) Stable w/ treatment [facility] Other 01-19-2024 Evaluation note* Encounter Date Diagnosis Assessment Notes Treatment Notes Treatment Clinical Notes Apr, Bone lesion (ICD-10 - M89.9) [facility] Other 01-10-2024 Hospital Discharge instructions* Discharge Instructions* Cain Fitzgerald MD - 04/28/2023 3:31 PM EST Please contact occupational health clinic for recheck Please also take Tylenol or Motrin as directed for control of any discomfort You may use ice right shoulder 40 minutes each setting 4 times a day you will also be provided witha sling and swath * Attachments The following attachments cannot be sent through Care Everywhere. * Shoulder Sprain (Czech) * Shoulder Pain (Czech) [facility]* Encounter Date Diagnosis Assessment Notes Treatment Notes Treatment Clinical Notes Dec, Primary hypertension (ICD-10 - I10) This patient is instructed to consume a healthy, low-fat, low-salt diet. They are also encouraged to continue exercise to achieve/maintain a normal BMI. Dec, Stage 3a chronic kidney disease (ICD-10 - N18.31) The patient is instructed on adequate control of hypertension and diabetes, if appropriate. They are also educated on the associated risks of NSAIDs and PPI use with kidney disease. They were instructed on adequate fluid balance and to avoid dehydration. Dec, Postoperative hypothyroidism (ICD-10 - E89.0) Initiated on thyroid replacement therapy. TSH to follow, f/u ENT for now. Dec, Morbid (severe) obesity due to excess calories (ICD-10 - E66.01) This patient has been instructed on a low-fat, high-fiber diet. They are instructed to reduce calories, portion sizes and snacks. It is recommended that they exercise for 30 minutes, 3-5 times weekly. Dec, Body mass index [BMI ] 39.0-39.9, adult (ICD-10 - Z68.39) [facility] Other 08-30-2023 Evaluation note* Encounter Date Diagnosis Assessment Notes Treatment Notes Treatment Clinical Notes Nov, Primary hypertension (ICD-10 - I10) This patient is instructed to consume a healthy, low-fat, low-salt diet. They are also encouraged to continue exercise to achieve/maintain a normal BMI. Add diuretic to CCB, ARB and BB Recheck at home Anxiety/stress may be contributing. f/u OV in month, check BP at home w/ goal < 140/90 Nov, Stage 3a chronic kidney disease (ICD-10 - N18.31) The patient is instructed on adequate control of hypertension and diabetes, if appropriate. They are also educated on the associated risks of NSAIDs and PPI use with kidney disease. They were instructed on adequate fluid balance and to avoid dehydration. Nov, Obstructive sleep apnea (ICD-10 - G47.33) This patient is aware of the benefits associated with REILLY: With continued use, the patient reduces the risk for MN, CVA, HTN, cardiac dysrhythmias and sudden cardiac deaths.The patient is also aware of the association between REILLY and morning headaches, daytime somnolence, fatigue and obesity, which also has been improved with continued use.The patient is compliant with treatment, wearing the equipment every night for greater than 4 hours.The patient is instructed to continue use of the CPAP for REILLY treatment. [facility] Other 08-25-2023 Evaluation note* Encounter Date Diagnosis Assessment Notes Treatment Notes Treatment Clinical Notes Nov, Primary hypertension (ICD-10 - I10) [facility] Other 07-14-2023 Evaluation note* Encounter Date Diagnosis Assessment Notes Treatment Notes Treatment Clinical Notes Oct, Thyroid nodule (ICD-10 - E04.1) [facility] Other 07-14-2023 Evaluation note* Encounter Date Diagnosis Assessment Notes Treatment Notes Treatment Clinical Notes Oct, Essential hypertension (ICD-10 - I10) [facility] Other 06-30-2023 Evaluation note* Encounter Date Diagnosis Assessment Notes Treatment Notes Treatment Clinical Notes Sep, Enlarged thyroid (ICD-10 - E04.9) [facility] Other 06-22-2023 Evaluation note* Encounter Date Diagnosis Assessment Notes Treatment Notes Treatment Clinical Notes Sep, Ptosis of right eyelid (ICD-10 - H02.401) MRA negative for aneurysm. MRI, Carotid US, Echo schdeduled to r/o thromboembolic events, carotid stenosis and brain mass. Sep, Essential hypertension (ICD-10 - I10) This patient is instructed to consume a healthy, low-fat, low-salt diet. They are also encouraged to continue exercise to achieve/maintain a normal BMI. Stop Atenolol and start Coreg Decrease Amlodipine to 5mg qd Sep, Superficial venous thrombosis of right upper extremity (ICD-10 - I82.611) Continue Eliquis Recheck Venous US RUE Sep, Stage 3a chronic kidney disease (ICD-10 - N18.31) The patient is instructed on adequate control of hypertension and diabetes, if appropriate. They are also educated on the associated risks of NSAIDs and PPI use with kidney disease. They were instructed on adequate fluid balance and to avoid dehydration. 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 No additional neurologic deficits noted. Completed evaluation and refer to Neurology Sep, Obstructive sleep apnea (ICD-10 - G47.33) This patient is aware of the benefits associated with REILLY: With continued use, the patient reduces the risk for MN, CVA, HTN, cardiac dysrhythmias and sudden cardiac deaths.The patient is also aware of the association between REILLY and morning headaches, daytime somnolence, fatigue and obesity, which also has been improved with continued use.The patient is compliant with treatment, wearing the equipment every night for greater than 4 hours.The patient is instructed to continue use of the CPAP for REILLY treatment. Sep, IFG (impaired fasting glucose) (ICD-10 - R73.01) This patient is following a comprehensive diabetic treatment plan. They are checking their feet daily for calluses and nonhealing ulcers. They are being seen for yearly dilated eye examinations. Goals: SBP less than 130, LDL less than 100, FBS less than 140, AC and A1C less than 7%. They are checking their BS daily, will which are reviewed at the office visit. Continue regular routine monitoring of A1C,] Microalbumin, Dilated eye exam and Foot exam Sep, Elevated cholesterol (ICD-10 - E78.00) Instructed on diet and exercise with continued statin therapy.Discussed the beneficial effects of lowering cholesterol in reducing the risk for cerebrovascular and cardiovascular disease. [facility] Other 04-26-2023 Evaluation note* Encounter Date Diagnosis Assessment Notes Treatment Notes Treatment Clinical Notes Jul, Superficial venous thrombosis of right upper extremity (ICD-10 - I82.611) Continue Eliquis for 3mo Check DDimer and Venous US Jul, Ptosis of right eyelid (ICD-10 - H02.401) MRA negative for thrombosis or aneurysm. MRI brain, carotid US and Echocardiogram may be required to r/o cerebral inschemia/infarction or thromboembolic etiology for his ptosis Jul, Essential hypertension (ICD-10 - I10) This patient is instructed to consume a healthy, low-fat, low-salt diet. They are also encouraged to continue exercise to achieve/maintain a normal BMI. Jul, Stage 3a chronic kidney disease (ICD-10 - N18.31) The patient is instructed on adequate control of hypertension and diabetes, if appropriate. They are also educated on the associated risks of NSAIDs and PPI use with kidney disease. They were instructed on adequate fluid balance and to avoid dehydration. Jul, IFG (impaired fasting glucose) (ICD-10 - R73.01) Healthy diet, exercise and weight loss A1C every 6 mo [facility] Other 03-22-2023 Evaluation note* Encounter Date Diagnosis Assessment Notes Treatment Notes Treatment Clinical Notes Jun, Superficial venous thrombosis of right upper extremity (ICD-10 - I82.611) Warm compresses and elevation Plan to for 3months Check venous US and DDimer Jun, Essential hypertension (ICD-10 - I10) This patient is instructed to consume a healthy, low-fat, low-salt diet. They are also encouraged to continue exercise to achieve/maintain a normal BMI. Jun, Diverticulitis of large intestine without bleeding, unspecified complication status (ICD-10 - K57.32) Persistent fever and LLQ pain despite 2 courses of antibiotics. Completed IV antibiotics. Monitor for recurrent symptoms Increase dietary fiber Jun, S/P PICC central estevan e placement (ICD-10 - Z95.828) [facility] Other 03-15-2023 Evaluation note* Encounter Date Diagnosis Assessment Notes Treatment Notes Treatment Clinical Notes Jun, Swelling of right upper extremity (ICD-10 - M79.89) s/p removal of PICC line. Schedule venous US to r/o DVT Jun, S/P PICC central estevan e placement (ICD-10 - Z95.828) Picc line removed Jun, Diverticulitis of large intestine without perforation or abscess without bleeding (ICD-10 - K57.32) Complete Ivanz and monitor for worsening symptoms. Jun, Essential hypertension (ICD-10 - I10) This patient is instructed to consume a healthy, low-fat, low-salt diet. They are also encouraged to continue exercise to achieve/maintain a normal BMI. [facility] Other 03-15-2023 Evaluation note* Encounter Date Diagnosis Assessment Notes Treatment Notes Treatment Clinical Notes Jun, Superficial venous thrombosis of right upper extremity (ICD-10 - I82.611) [facility] Other 03-07-2023 Evaluation note* Encounter Date Diagnosis Assessment Notes Treatment Notes Treatment Clinical Notes Jun, Acute diverticulitis (ICD-10 - K57.92) [facility] Other 03-06-2023 Hospital Discharge instructions Patient Education 06/22/2022 13:59:37 EU - Cystoscopy Discharge Instructions (Custom) Cystoscopy Voiding after the procedure: there may be some pain, burning, urgency, frequency and blood tinged urine following the procedure. These symptoms usually resolve within 2-5 days. Drink the amount of fluid it takes to keep the urine pink to yellow or clear in color. Drinking enough water and fluids will help to ease any discomfort after your procedure. If you are having problems that seem out of the ordinary, please call. If unable to contact your physician and you feel it is an emergency, go to the nearest emergency room or call 911 Diet you may resume your normal diet. Activity you may resume your normal activities Call if you have a fever over 100 degrees. Follow Up Care 06/18/2022 12:14:34 With:Bonifacio MITHCELL Address: [address] [place] [address] [facility] (1) When:6 weeks Comments:I would like to see her back in the office in about 6 to 8 weeks in follow-up of starting the new medication, tamsulosin.Monitor for side effects such as lightheadedness or dizziness or the retrograde ejaculation that we discussed.Eventual plan is for repeat cystoscopy in 1 year. [facility]03-06-2023 Evaluation + Plan noteExtracted from: Title:HOPD visit Author:Bonifacio MITCHELL MD Date: 06/22/22 Impression and Plan Assessment and Plan: Diagnosis: BPH with obstruction/lower urinary tract symptoms (RQG30-AP N40.1, Billing Diagnosis, Medical), Other obstructive and reflux uropathy (FRW83-LK N13.8, Discharge, Medical), Personal history of bladder cancer (ICD10- CM Z85.51, Billing Diagnosis, Medical). Additional Plan of Care and/or Course of Treatment: Additional Plan of Care and/or Course of Treatment: As discussed with the patient, none of his symptoms by both history, nor by physical examination are consistent with renal colic. His CT scan demonstrated no obvious evidence of kidney stones or hydronephrosis. Working diagnosis at this point would be left-sided diverticulitis. He does have some exacerbation of urinary symptoms with slow urinary flow and associated with findings on cystoscopy he prefers medical management at this time knowing that we can perform procedural intervention in the future. Prescription for tamsulosin 0.4 mg daily sent to his pharmacy 30 with 11 refills. Discussed potential side effects. We will see him back in about 6 weeks and he agrees with the plan. Tentatively 1 year follow-up for repeat cystoscopy provided the FISH and cytology are negative.. Future Appointments Appointment Date:08/17/2022 09:30:00 AM Scheduled Provider:Bonifacio MITCHELL MD Location:[facility] Appointment Type:URO Office Visit Diagnostic Tests Pending * [facility] Urine Cyto ([facility]) 06/22/22 [facility]02-28-2023 Evaluation note* Encounter Date Diagnosis Assessment Notes Treatment Notes Treatment Clinical Notes May, Acute diverticulitis (ICD-10 - K57.92) [facility] Other 02-20-2023 Evaluation note* Encounter Date Diagnosis Assessment Notes Treatment Notes Treatment Clinical Notes May, Acute diverticulitis (ICD-10 - K57.92) [facility] Other 02-17-2023 Evaluation note* Encounter Date Diagnosis Assessment Notes Treatment Notes Treatment Clinical Notes May, Essential hypertension (ICD-10 - I10) This patient is instructed to consume a healthy, low-fat, low-salt diet. They are also encouraged to continue exercise to achieve/maintain a normal BMI. May, Acute diverticulitis (ICD-10 - K57.92) Handouts or diverticular disease, diet. Clear liquid diets until pain resolves. Initiate antibiotics. ER for increased pain May, IFG (impaired fastin g glucose) (ICD-10 - R73.01) Healthy diet, exercise and weight loss. A1C < 6% [employer] Other 04-12-2022 Evaluation + Plan note Diagnostic Tests Pending * UroVysion Fish and Urine Cyto ([facility]) 07/29/21 [facility] [place] 04-12-2022 Hospital Discharge instructions Patient Education 07/29/2021 07:29:50 Erectile Dysfunction Erectile Dysfunction Erectile dysfunction (ED) is the inability to get or keep an erection in order to have sexual intercourse. Erectile dysfunction may include: Inability to get an erection. Lack of enough hardness of the erection to allow penetration. Loss of the erection before sex is finished. What are the causes? This condition may be caused by: Certain medicines, such as: ?Pain relievers. ?Antihistamines. ?Antidepressants. ?Blood pressure medicines. ?Water pills (diuretics). ?Ulcer medicines. ?Muscle relaxants. ?Drugs. Excessive drinking. Psychological causes, such as: ?Anxiety. ?Depression. ?Sadness. ?Exhaustion. ?Performance fear. ?Stress. Physical causes, such as: ?Artery problems. This may include diabetes, smoking, liver disease, or atherosclerosis. ?High blood pressure. ?Hormonal problems, such as low testosterone. ?Obesity. ?Nerve problems. This may include back or pelvic injuries, diabetes mellitus, multiple sclerosis, or Parkinson disease. What are the signs or symptoms? Symptoms of this condition include: Inability to get an erection. Lack of enough hardness of the erection to allow penetration. Loss of the erection before sex is finished. Normal erections at some times, but with frequent unsatisfactory episodes. Low sexual satisfaction in either partner due to erection problems. A curved penis occurring with erection. The curve may cause pain or the penis may be too curved to allow for intercourse. Never having nighttime erections. How is this diagnosed? This condition is often diagnosed by: Performing a physical exam to find other diseases or specific problems with the penis. Asking you detailed questions about the problem. Performing blood tests to check for diabetes mellitus or to measure hormone levels. Performing other tests to check for underlying health conditions. Performing an ultrasound exam to check for scarring. Performing a test to check blood flow to the penis. Doing a sleep study at home to measure nighttime erections. How is this treated? This condition may be treated by: Medicine taken by mouth to help you achieve an erection (oral medicine). Hormone replacement therapy to replace low testosterone levels. Medicine that is injected into the penis. Your health care provider may instruct you how to give yourself these injections at home. Vacuum pump. This is a pump with a ring on it. The pump and ring are placed on the penis and used to create pressure that helps the penis become erect. Penile implant surgery. In this procedure, you may receive: ?An inflatable implant. This consists of cylinders, a pump, and a reservoir. The cylinders can be inflated with a fluid that helps to create an erection, and they can be deflated after intercourse. ?A semi-rigid implant. This consists of two silicone rubber rods. The rods provide some rigidity. They are also flexible, so the penis can both curve downward in its normal position and become straight for sexual intercourse. Blood vessel surgery, to improve blood flow to the penis. During this procedure, a blood vessel from a different part of the body is placed into the penis to allow blood to flow around (bypass) damaged or blocked blood vessels. Lifestyle changes, such as exercising more, losing weight, and quitting smoking. Follow these instructions at home: Medicines Take [id number] and prescription medicines only as told by your health care provider. Do not increase the dosage without first discussing it with your health care provider. If you are using self-injections, perform injections as directed by your health care provider. Makesure to avoid any veins that are on the surface of the penis. After giving an injection, apply pressure to the injection site for 5 minutes. General instructions Exercise regularly, as directed by your health care provider. Work with your health care provider to lose weight, if needed. Do not use any products that contain nicotine or tobacco, such as cigarettes and e-cigarettes. If you need help quitting, ask your health care provider. Before using a vacuum pump, read the instructions that come with the pump and discuss any questionswith your health care provider. Keep all follow-up visits as told by your health care provider. This is important. Contact a health care provider if: You feel nauseous. You vomit. Get help right away if: You are taking oral or injectable medicines and you have an erection that lasts longer than 4 hours. If your health care provider is unavailable, go to the nearest emergency room for evaluation. An erection that lasts much longer than 4 hours can result in permanent damage to your penis. You have severe pain in your groin or abdomen. You develop redness or severe swelling of your penis. You have redness spreading up into your groin or lower abdomen. You are unable to urinate. You experience chest pain or a rapid heart beat (palpitations) after taking oral medicines. Summary Erectile dysfunction (ED) is the inability to get or keep an erection during sexual intercourse. This problem can usually be treated successfully. This condition is diagnosed based on a physical exam, your symptoms, and tests to determine the cause. Treatment varies depending on the cause, and may include medicines, hormone therapy, surgery, orvacuum pump. You may need follow-up visits to make sure that you are using your medicines or devices correctly. Get help right away if you are taking or injecting medicines and you have an erection that lasts longer than 4 hours. This information is not intended to replace advice given to you by your health care provider. Make sure you discuss any questions you have with your health care provider. Document Released: 04/02/2001 Document Revised: 03/18/2018 Document Reviewed: 04/21/2017 [employer] Patient Education 2020 [employer] Follow Up Care 06/26/2021 12:26:10 With:Bonifacio MITCHELL MD, URL Address: [address] [place] [address] [place], [place] [id number]- When: Unknown [facility] Evaluation + Plan note Future Appointments Appointment Date:07/22/2023 12:45:00 PM Scheduled Provider:Bonifacio MITCHELL MD Location:[facility] Appointment Type:URO Office Visit [facility] Evaluation + Plan note Future Appointments Appointment Date:07/22/2023 12:45:00 PM Scheduled Provider:Bonifacio MITCHELL MD Location:[facility] Appointment Type:URO Office Visit Diagnostic Tests Pending * UroVysion Fish and Urine Cyto ([facility]) 07/08/23 [facility] note[facility] InformationNort I Read [facility] Other Evaluation noteNo assessment information available [facility] Work Phone: Evaluation note* Diagnosis Sprain of right shoulder, unspecified shoulder sprain type, initial encounter- Primary [facility]* Diagnosis Humeral avulsion glenohumeral ligament lesion, right, initial encounter Strain of right elbow, initial encounter documented in this [facility] [employer]* Diagnosis 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 documented in this encounter [facility] general Narrative - Reported* Type Description Date Medical History Benign non-nodular p rostatic hyperplasia with lower urinary tract symptoms Medical History Umbilical hernia wit hout obstruction and without gangrene Medical History Obstructive sleep apnea Medical History Hyperlipidemia, mixed Medical History Lumbar spondylosis Medical History Erectile dysfunction due to christiano rial insufficiency Medical History Benign hypertension with chronic kidney disease, stage III Medical History Acute diverticulitis Medical History Primary osteoarthritis of right hip Medical History High risk medication use Medical History Mild episode of recurrent major depressive disorder Medical History Left hip pain Medical History IFG (impaired fasting glucose) Medical History Colon cancer screening Medical History Primary insomnia Medical History Essential hypertension Medical History CELINE (generalized anxiety disorde r) Medical History transitional cell bladder cancer Surgical History TOTAL HIP ARTHROPLASTY 2021 Surgical History COLONOSCOPY 2019 Surgical History CYSTOSCOPY Surgical History LEFT ACL REPAIR Surgical History RIGHT SHOULDER ARTHROSCOPY Hospitalization History SEE SURGICAL [employer] Other History general Narrative - Reported* Type Description Date Medical History Benign non-nodular p rostatic hyperplasia with lower urinary tract symptoms Medical History Umbilical hernia wit hout obstruction and without gangrene Medical History Obstructive sleep apnea Medical History Hyperlipidemia, mixed Medical History Lumbar spondylosis Medical History Erectile dysfunction due to christiano rial insufficiency Medical History Benign hypertension with chronic kidney disease, stage III Medical History Acute diverticulitis Medical History Primary osteoarthritis of right hip Medical History High risk medication use Medical History Mild episode of recurrent major depressive disorder Medical History Left hip pain Medical History IFG (impaired fasting glucose) Medical History Colon cancer screening Medical History Primary insomnia Medical History Essential hypertension Medical History CELINE (generalized anxiety disorde r) Medical History transitional cell bladder cancer Surgical History TOTAL HIP ARTHROPLASTY 2021 Surgical History COLONOSCOPY 2019 Surgical History CYSTOSCOPY Surgical History LEFT ACL REPAIR Surgical History RIGHT SHOULDER ARTHROSCOPY Surgical History Thyroidectomy 12/2022 Hospitalization History SEE SURGICAL [employer] Other [facility] general Narrative - Reported* Type Description Date Medical History Benign non-nodular p rostatic hyperplasia with lower urinary tract symptoms Medical History Umbilical hernia wit hout obstruction and without gangrene Medical History Obstructive sleep apnea Medical History Hyperlipidemia, mixed Medical History Lumbar spondylosis Medical History Erectile dysfunction due to christiano rial insufficiency Medical History Benign hypertension with chronic kidney disease, stage III Medical History Acute diverticulitis Medical History Primary osteoarthritis of right hip Medical History High risk medication use Medical History Mild episode of recurrent major depressive disorder Medical History Left hip pain Medical History IFG (impaired fasting glucose) Medical History Colon cancer screening Medical History Primary insomnia Medical History Essential hypertension Medical History CELINE (generalized anxiety disorde r) Medical History transitional cell bladder cancer Surgical History TOTAL HIP ARTHROPLASTY 2021 Surgical History COLONOSCOPY 2019 Surgical History CYSTOSCOPY Surgical History LEFT ACL REPAIR Surgical History RIGHT SHOULDER ARTHROSCOPY Surgical History Thyroidectomy 12/2022 Surgical History Iliac bone bx 05/2023 Hospitalization History SEE SURGICAL [employer] Other Hospital course Narrative No data available for this section [facility] Discharge instructions Additional Instructions DISCHARGE INSTRUCTIONS FOR THYROIDECTOMY ACTIVITY -No lifting or straining. -[No strenuous activity for 2 weeks.] -[Sleep with head elevated on two pillows.] -May shower [today or tomorrow?] -[You may shower and wash the incision with soap and water, but do not submerge the incision or allow prolonged exposure to water. Pat dry.] -[No driving for at least 5 days, or while taking prescription pain medicine.] WOUND CARE/DRESSING -Be sure to keep your incision clean and dry. -[There is a clear, glue-like adhesive on your incision. Do not peel or pick at this adhesive. It wall fall off on its own after a few days.] -[Call the office if incision area appears to have any sign of infection, such as increased swelling, redness, or purulent drainage.] -[Watch for bleeding, swelling, difficulty breathing, difficulty swallowing.] MEDICATION -If any prescriptions have been given to you, be sure to take as directed. OTHER Any problems- call the office or return to the Emergency Room. If you are having excessive or persistent pain, swelling, fever (oral temp >101), yellow-green foul smelling drainage or bleeding from incision, excessive redness of incision, nausea, vomiting, or any other problems, you should first call your surgeon for advice. If you are unable to contact your surgeon, seek help from a hospital emergency room. FOLLOW UP -Call the office to follow up in one week. [][facility] Work Phone: Hospital Discharge instructions No data available for this section [facility] No data available for this section [facility] for [facility] (narrative)* Reason *FU 11/11 Elroy massey shanell mcdonald referred for further evaluation of large thyroid nodules Diagnosis 1 Thyroid nodule (E04. 1) Referral Organization [facility] Ck vargas Referring Provider First Name Zach Referring Provider Last Name Ck Referring Provider Specialty Internal Me dicine Referred Organization [facility] Referred Provider Zach Martínez Referred Address ,[place], [place],[address] Referred Provider Specialty Otolaryngolo gy Referral Priority Routine General Notes An enlarged, heterog enous thyroid gland was incidentally found during Carotid US. A thyroid US was scheduled and revealed multiple large nodules. Among these nodules is a 5.9cm solid, isoechoic nodule in the right lobe and a 3.5cm solid, isoechoic nodule in the left lobe. Due to the size, it has been suggested that excisional biopsy may by preferred over FNA. Elroy's TSH and free T4 are normal, while his total T3 is pending. I am referring Erloy for your recommendations for surgery. Ambika Nettles 11/04/2022 03:47:49 PM >received today, attachments made, notes locked, referral faxed Clinical Notes Please include thyro id US, TSH and Free T4. If total T3 becomes available, please include for completeness . 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 Reason for Referral 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[employer] [address] [place] [address] Referral ID Status Reason Start Date Expiration Date Visits Re quested Visits Authorized [id number] Closed 05/05/2023 05/02/2024 1 1 Additional Source Comments REASON FOR VISIT (unrecogniz ed section and content) Reason Comments Shoulder Injury Pt. Reports adjustin g cot & felt shoulder pop out of place. Pt. Reports he then shrugged his shoulder & feels it went back in place. Sling in place in triage. 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 (H [facility]) Reason Comments Results Reason Comments Results Pathology Patient Care team informatio n (unrecognized section and content) Team Status: Active Member Role Status Dates Zach Stover DO Primary Care Provider Active Team Status: Inactive Member Role Status Dates Zach Stover DO Primary Care Provider Active Zach Martínez DO Attending Provider Active Teacher Asst Relationship Specialty Start Date End Date Zach Stover DO PCP - General Internal Medicine 08/25/16 Teacher Asst Relationship Specialty Start Date End Date Zach Stover DO PCP - General Internal Medicine 08/25/16 Team Status: Inactive Member Role Status Dates Zach Stover DO Primary Care Provider Active Start: March 25, 2023 End: March 25, 2023 Zach Martínez DO Attending Provider Active S tart: March 25, 2023 End: March 25, 2023 Team Status: Inactive Member Role Status Dates Zach Stover DO Attending Provider Active Sta rt: March 29, 2023 End: March 29, 2023 Team Status: Inactive Member Role Status Dates Zach Stover DO Primary Care Provide r, Attending Provider Active Start: May 12, 2023 End: May 12, 2023 Zach Martínez DO Other Provider Active Start : May 12, 2023 End: May 12, 2023 Teacher Asst Relationship Specialty Start Date End Date Zach Stover DO [address] [place] [address] PCP - General Internal Medicine 05/13/23 Teacher Asst Relationship Specialty Start Date End Date Zach Stover DO [address] [place] [address] PCP - General Internal Medicine 05/13/23 Teacher Asst Relationship Specialty Start Date End Date Zach Stover [address] [place] [address] PCP - General Internal Medicine 05/13/23 Teacher Asst Relationship Specialty Start Date End Date Zach Stover [address] [place] [address] PCP - General Internal Medicine 05/13/23 Team Status: Inactive Member Role Status Dates Zach Stover DO Attending Provider Active Sta rt: May 12, 2023 End: May 12, 2023 Team Status: Active Member Role Status Dates Zach Stover DO Primary Care Provider Active Start: June 21, 2023 FALLON Riojas Attending Provider Active Start : June 21, 2023 Team Status: Inactive Member Role Status Dates Zach Stover DO Primary Care Provider Active Start: June 28, 2023 End: June 28, 2023 Zach Martínez DO Attending Provider Active S tart: June 28, 2023 End: June 28, 2023 Team Status: Active Member Role Status Dates Zach Stover DO Primary Care Provider Active Start: June 29, 2023 FALLON Riojas Attending Provider Active Start : June 29, 2023 Team Status: Inactive Member Role Status Dates Zach Stover DO Primary Care Provider Active Start: July 09, 2023 End: July 10, 2023 Bonifacio Mitchell MD Attending Provider Active St art: July 09, 2023 End: July 10, 2023 Team Status: Inactive Member Role Status Dates Zach Stover DO Primary Care Provider Active Start: July 09, 2023 End: July 10, 2023 Bonifacio Mitchell MD Admit Provider, Atte nding Provider Active Start: July 09, 2023 End: July 10, 2023 (unrecognized sect ion and content) No Status Records FoundNo Status Records FoundNo Status Records FoundNo Status Records FoundNo Status Records FoundNo Status Records FoundNo Status Records Found INFORMATION SOURCE (unrecogn ized section and content) DATE CREATED AUTHOR 08/20/2022 [facility] DATE CREATED AUTHOR AUTHOR'S ORGANIZ ATION 05/08/2023 [facility] DATE CREATED AUTHOR AUTHOR'S ORGANIZ ATION 06/17/2023 [facility] DATE CREATED AUTHOR AUTHOR'S ORGANIZ ATION 06/18/2023 [facility] DATE CREATED AUTHOR AUTHOR'S ORGANIZ ATION 07/06/2023 [facility] DATE CREATED AUTHOR AUTHOR'S ORGANIZ ATION 07/12/2023 [facility] DATE CREATED AUTHOR AUTHOR'S ORGANIZ ATION 07/14/2023 [facility] Goals (unrecognized section and content) Goals may be documented in a n alternate section Scheduled Active and Recently Administ ered Medications (unrecognized section and content) Medication Order 04/26/2023 04/27/2023 04/28/2023 acetaminophen (TYLENOL) tablet 650 mg (COMPLETED) 650 mg, Oral, ONCE, 1 dose, On Wed04/28/23 at 1445, Maximum dose of acetaminophen is 4000 mg from all sources in 24 hours. 1519 (Given - Provid er: Deanna Thomas RN) Source Comments (unrecognize d section and content) In the event this informatio n is protected by the Federal Confidentiality of Alcohol and Drug Abuse Patient Records regulations: The Federal rules restrict any use of the information to criminally investigate or prosecute any alcohol or drug abuse patient.[facility] Center[facility] the event this information is protected by the Federal Confidentiality of Alcohol and Drug Abuse Patient Records regulations: The Federal rules restrict any use of the information to criminally investigate or prosecute any alcohol or drug abuse patient.[facility] Center[facility] the event this information is protected by the Federal Confidentiality of Alcohol and Drug Abuse Patient Records regulations: The Federal rules restrict any use of the information to criminally investigate or prosecute any alcohol or drug abuse patient.[facility] Center[facility] the event this information is protected by the Federal Confidentiality of Alcohol and Drug Abuse Patient Records regulations: The Federal rules restrict any use of the information to criminally investigate or prosecute any alcohol or drug abuse patient.[facility] Center[facility] the event this information is protected by the Federal Confidentiality of Alcohol and Drug Abuse Patient Records regulations: The Federal rules restrict any use of the information to criminally investigate or prosecute any alcohol or drug abuse patient.[facility] Center[facility] the event this information is protected by the Federal Confidentiality of Alcohol and Drug Abuse Patient Records regulations: The Federal rules restrict any use of the information to criminally investigate or prosecute any alcohol or drug abuse patient.[facility] Center[facility] the event this information is protected by the Federal Confidentiality of Alcohol and Drug Abuse Patient Records regulations: The Federal rules restrict any use of the information to criminally investigate or prosecute any alcohol or drug abuse patient.[facility] FOR RECORDS PERTAINING TO PATIENTS WHO ARE OR HAVE BEEN ENROLLED IN A CHEMICAL DEPENDENCY/SUBSTANCEABUSE PROGRAM, SOME INFORMATION MAY BE OMITTED. This clinical summary was aggregated from multiple sources. Caution should be exercised in using it in the provision of clinical care. This summary normalizes information from multiple sources, and as a consequence, information in this document may materially change the coding, format and clinical context of patient data. In addition, data may be omitted in some cases. CLINICAL DECISIONS SHOULD BE BASED ON THE PRIMARY CLINICAL RECORDS. [facility] [employer] [facility]. provides no warranty or guarantee of the accuracy or completeness of information in this document.
--- NOTE | 2023-07-14 17:02 | XR_ITS ---
The [address] [address] Patient Name: KARL GEIGER MRN: [id number] date: 1965 Sex: M Assigned Patient Location: LAB Current Patient Location: Accession/Order Number: [id number] Exam Date: 07/14/2023 16:54 Report Date: 07/15/2023 07:31 At the request of: ANTIONE STOVER Procedure: XR hip RT 2V w/ pelvis PROCEDURE: XR hip RT 2V w/ pelvis COMPARISON: None. HISTORY: hip pain, back pain M25.559, M54.9 FINDINGS: BONES:Bilateral total hip arthroplasty. No acute fracture, dislocation or mechanical failure of the right. SOFT TISSUES:Negative. No visible soft tissue swelling. EFFUSION:None visible. OTHER: Pelvic calcifications, vascular phleboliths are favored XR/XR hip RT 2V w/ pelvis IMPRESSION: No acute radiographic abnormality Electronically authenticated by: BERNARDO DANGELO Date: 07/15/2023 07:31
== END 2023-07-14 16:38 | disposition home or self-care (01) ==
LOC: LAB 16:40
PROVIDERS: PCP Internal Medicine; Visit Provider Internal Medicine
DX: M25.559 Pain in unspecified hip (principal); M54.9 Dorsalgia, unspecified; M51.36 Other intervertebral disc degeneration, lumbar region
CPT/HCPCS: 72100; 73502